=== PATIENT | female | born 1950 | race Hispanic/Latino ===

== ENCOUNTER 2022-10-13 09:40 | Emergency (ER) | payer OTHER, SELFPAY ==
--- OUTSIDE RECORDS SUMMARY | 2022-10-13 09:48 | XMS REPORT | Continuity of Care Document ---
:[address] [facility] t Address [address] [place] [address] Care Team Providers Name Role Phone Verna Jefferson Primary Care Physician Kalee Redd RN Attending Clinician Unavailable JUSTICE GRANDE Attending Clinician Unavailable JUSTICE GRANDE Attending Clinician Unavailable VERNA ARVIZU Attending Clinician Unavailable Verna Jefferson Attending Clinician DOLORES COATS Attending Clinician Unavailable Dolores Coats DO Attending Clinician PHILOMENA GUSMAN Attending Clinician Unavailable Philomena Gusman MD Attending Clinician Justice Grande MD Attending Clinician Lab, Ang - Db Attending Clinician Unavailable Naseem Branch MD Attending Clinician Jeremy De Luna MD Attending Clinician Doctor Unassigned, [place] Attending Clinician Unavailable Lazara Burks RN Attending Clinician Unavailable Only, Ang Db Test Attending Clinician Unavailable Marla Rossi MD Attending Clinician MARLA ROSSI Attending Clinician Unavailable NASEEM BRANCH Attending Clinician Unavailable Lorie Bazzi RN Attending Clinician Unavailable Lab, Adc Fam Pob I Attending Clinician Unavailable Provider, [facility] Attending Clinician Unavailable Lisset Paulino Attending Clinician LISSET QUILES Attending Clinician Unavailable 2, Adc Lab Attending Clinician Unavailable VIDHYA NEFF Attending Clinician Unavailable VIDHYA NEFF Attending Clinician Unavailable Jyoti Alegria Attending Clinician Yared Jimenez Attending Clinician PHILOMENA GUSMAN Admitting Clinician Unavailable Yared Jimenez Admitting Clinician Payers Payer Name Policy Type Policy Number Effective Date Expiration Date Jesusita LUO PLS [id number] 2021 00:00:00 HMO Problems Condition Condition Condition Status Onset Resolution Last Treating Co mments Source Name Details Category Date Date Treatment Clinician Date PATRICIA PATRICIA Disease Active 2018-09 Univers (obstructi (obstructi 2-19 it y of ve sleep ve sleep 00:00: [place] apnea) apnea) 00 Medical Branch B12 B12 Disease Active 2018-09 [facility] deficiency deficiency 1-19 it y of 00:00: [place] [facility] Cerebral Cerebral Disease Active 2018-09 Unive rs microvascu microvascu 1-12 it y of lar lar 00:00: [place] disease disease 00 Medical Branch Fatty Fatty Disease Active Univers liver liver 4-20 ity of 00:00: [place] [facility] DM2 DM2 Disease Active Univers (diabetes (diabetes 4-08 [place] of mellitus, mellitus, 00:[place] type 2[place] type 2[place] 00 [facility] Hyperchole Hyperchole Disease Active U tiners sterolemia sterolemia 4-08 it y of 00:00: [place] [facility] Abnormal Abnormal Disease Active Unive rs liver liver 4-04 ity of function function 00:00: [place] tests tests 00 Medical Branch 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 4-04 it y of 00:00: [place] 00 Medical Branch Essential Essential Disease Active Uni vers hypertensi hypertensi 2-16 it y of on on 00:00: [place] 00 Medical Branch History of History of Disease Active U nivers colon colon 2-16 ity of polyps polyps 00:00: [place] [facility] GALL GALL Diagnosis Active 2016-03-22 Mem oria STONES STONES 6-27 10:26:00 l Active 00:00: [place] 03/20/2016 00 [facility] Hypertensi Hypertens Problem Resolve 2016-03-26 Memoria ve eduardo d 02:01:24 l disorder, disorder, Herm antoni systemic systemic arterial arterial (disorder) (disorder) Resolved Problem 03/26/2016 [facility] GALLSTONE GALLSTONE Diagnosis Active 2016-03-22 Memoria ILEUS ILEUS 10:26:00 l Active Vick avendaño [facility] Alzheimer' Alzheimer' Disease [facility], Adverse Reactions, Alerts Allergy Allergy Status Severity Reaction(s) Onset Inactive Treating Comm ents Source Name Type Date Date Clinician NO KNOWN [facility] Class [facility] Social History Social Habit Start Date Stop Date Quantity Comments Source Exposure to 2022-08-06 2022-08-16 Not sure [facility]-CoV-2 00:00:00 09:22:00 [facility] (event) [place] Alcohol intake 2022-08-16 2022-08-16 Current University 00:00:00 00:00:00 non-drinker of [facility] alcohol (finding) [place] Tobacco use and 2022-05-24 2022-05-24 Smokeless tobacco Un iversity of exposure 00:00:00 00:00:00 non-user [facility] Social History 2016-03-21 2016-03-21 [facility] 05:03:51 05:03:51 Sex [birth year] At [birth year] Universit y of 00:00:00 00:00:00 [facility] Smoking Status Start Date Stop Date Source Never smoked tobacco [facility] Medications Ordered Filled Start Stop Current Ordering Indication Dosage Frequency Signature Comments Components Source Medication Medication Date Date Medication? Clinician (SIG) Name Name aspirin 81 2021-09 Yes 81mg Take 81 mg U nivers mg EC 1-23 by mouth ity of tablet 09:42: daily. [address] aspirin 81 2021-09 Yes 81mg Take 81 mg U nivers mg EC 1-23 by mouth ity of tablet 09:42: daily. [address] aspirin 81 2021-09 Yes 81mg Take 81 mg U nivers mg EC 1-23 by mouth ity of tablet 09:42: daily. [address] aspirin 81 2021-09 Yes 81mg Take 81 mg U nivers mg EC 1-23 by mouth ity of tablet 09:42: daily. [address] aspirin 81 2021-09 Yes 81mg Take 81 mg U nivers mg EC 1-23 by mouth ity of tablet 09:42: daily. [address] aspirin 81 2021-09 Yes 81mg Take 81 mg U nivers mg EC 1-23 by mouth ity of tablet 09:42: daily. [address] aspirin 81 2021-09 Yes 81mg Take 81 mg U nivers mg EC 1-23 by mouth ity of tablet 09:42: daily. [address] NaCl 0.9% 2021-09- No 1000mL at 999 Uni vers (NS) bolus 1-20 11-20 mL/hr, ity of infusion 21:30: 22:40 1,000 mL, Mariano as 1,000 mL 00 :00 IV Medical Infusion, Branch ONCE, 1 dose, On [place] 08/13/22 at 1530, RAMO ondansetron 2021-09- No 4mg 4 mg, Slow Univers (ZOFRAN -20 11-20 IV Push, ity of (PF)) 20:45: 21:03 ONCE, 1 [place] injection 4 00 :00 dose, On Medi tobias mg [facility] 08/13/22 at 1445, RAMO iopamidol 2021-09- No [id number] 72mL 72 mL, Univers (ISOVUE 1-15 11-15 Intravenou ity o f 370-500 mL) 04:30: 04:30 s, ONCE, 1 [place] injection 00 :00 dose, On Medica l 72 mL [facility] 08/07/22 at 2230, Routine NaCl 0.9% 2021-09- No 500mL at 999 Univ ers (NS) bolus 1-15 11-15 mL/hr, 500 it y of infusion 04:00: 04:47 mL, IV [place] 500 mL 00 :00 Infusion, Medical ONCE, 1 Branch dose, On [facility] 08/07/22 at 2200, STAT ondansetron 2021-09- No 4mg 4 mg, Slow Univers (ZOFRAN 1-15 11-15 IV Push, ity of (PF)) 02:45: 01:50 ONCE, 1 [place] injection 4 00 :00 dose, On Medi tobias mg Mon Branch 08/07/22 at 2045, RAMO NaCl 0.9% 2021-09- No 500mL at 999 Univ ers (NS) bolus 1-15 11-15 mL/hr, 500 it y of infusion 01:45: 03:05 mL, IV [place] 500 mL 00 :00 Infusion, Medical ONCE, 1 Branch dose, On 08/07/22 at 1945, STAT ondansetron 2021-09 Yes [id number] 4mg Take 1 Univers 4 mg 1-14 tablet by ity of disintegrat 00:00: mouth [place] ing tablet 00 every 4 Medica l (four) Branch hours as needed for Nausea and Vomiting (N/V). dicyclomine 2021-09 Yes [id number] 20mg Take 1 Univers 20 mg 1-14 tablet by ity of tablet 00:00: mouth 4 [place] 00 (four) Medical times Branch daily. ondansetron 2021-09 Yes [id number] 4mg Take 1 Univers 4 mg 1-14 tablet by ity of disintegrat 00:00: mouth [place] ing tablet 00 every 4 Medica l (four) Branch hours as needed for Nausea and Vomiting (N/V). dicyclomine 2021-09 Yes [id number] 20mg Take 1 Univers 20 mg 1-14 tablet by ity of tablet 00:00: mouth 4 [place] 00 (four) Medical times Branch daily. ondansetron 2021-09 Yes [id number] 4mg Take 1 Univers 4 mg 1-14 tablet by ity of disintegrat 00:00: mouth [place] ing tablet 00 every 4 Medica l (four) Branch hours as needed for Nausea and Vomiting (N/V). dicyclomine 2021-09 Yes [id number] 20mg Take 1 Univers 20 mg 1-14 tablet by ity of tablet 00:00: mouth 4 [place] 00 (four) Medical times Branch daily. ondansetron 2021-09 Yes [id number] 4mg Take 1 Univers 4 mg 1-14 tablet by ity of disintegrat 00:00: mouth [place] ing tablet 00 every 4 Medica l (four) Branch hours as needed for Nausea and Vomiting (N/V). dicyclomine 2021-09 Yes [id number] 20mg Take 1 Univers 20 mg 1-14 tablet by ity of tablet 00:00: mouth 4 (four) Medical times Branch daily. ondansetron 2021-09 Yes [id number] 4mg Take 1 Univers 4 mg 1-14 tablet by ity of disintegrat 00:00: mouth [place] ing tablet 00 every 4 Medica l (four) Branch hours as needed for Nausea and Vomiting (N/V). dicyclomine 2021-09 Yes [id number] 20mg Take 1 Univers 20 mg 1-14 tablet by ity of tablet 00:00: mouth 4 [place] (four) Medical times Branch daily. ondansetron 2021-09 Yes [id number] 4mg Take 1 Univers 4 mg 1-14 tablet by ity of disintegrat 00:00: mouth [place] ing tablet 00 every 4 Medica l (four) Branch hours as needed for Nausea and Vomiting (N/V). dicyclomine 2021-09 Yes [id number] 20mg Take 1 Univers 20 mg 1-14 tablet by ity of tablet 00:00: mouth (four) Medical times Branch daily. ondansetron 2021-09 Yes [id number] 4mg Take 1 Univers 4 mg 1-14 tablet by ity of disintegrat 00:00: mouth [place] ing tablet 00 every 4 Medica l (four) Branch hours as needed for Nausea and Vomiting (N/V). dicyclomine 2021-09 Yes [id number] 20mg Take 1 Univers 20 mg 1-14 tablet by ity of tablet 00:00: mouth (four) Medical times Branch daily. ondansetron 2021-09 Yes [id number] 4mg Take 1 Univers 4 mg 1-14 tablet by ity of disintegrat 00:00: mouth [place] ing tablet 00 every 4 Medica l (four) Branch hours as needed for Nausea and Vomiting (N/V). dicyclomine 2021-09 Yes [id number] 20mg Take 1 Univers 20 mg 1-14 tablet by ity of tablet 00:00: mouth 4 (four) Medical times Branch daily. ondansetron 2021-09 Yes [id number] 4mg Take 1 Univers 4 mg 1-14 tablet by ity of disintegrat 00:00: mouth [place] ing tablet 00 every 4 Medica l (four) Branch hours as needed for Nausea and Vomiting (N/V). dicyclomine 2021-1 Yes [id number] 20mg Take 1 Univers 20 mg 1-14 tablet by ity of tablet 00:00: mouth 4 [place] [address] (four) Medical times [place] daily. galantamine 2021-0 Yes [id number] 8mg Take 1 Univers 8 mg tablet 9-14 tablet by ity of 00:00: mouth in [place] [address] the Medical morning Branch and 1 tablet in the evening. galantamine 2021-0 Yes [id number] 8mg Take 1 Univers 8 mg tablet 9-14 tablet by ity of 00:00: mouth in [place] [address] the Medical morning Branch and 1 tablet in the evening. galantamine 2021-0 Yes [id number] 8mg Take 1 Univers 8 mg tablet 9-14 tablet by ity of 00:00: mouth in [place] [address] the Medical morning Branch and 1 tablet in the evening. galantamine 2021-0 Yes [id number] 8mg Take 1 Univers 8 mg tablet 9-14 tablet by ity of 00:00: mouth in [place] [address] the Medical morning Branch and 1 tablet in the evening. galantamine 2021-0 Yes [id number] 8mg Take 1 Univers 8 mg tablet 9-14 tablet by ity of 00:00: mouth in [place] [address] the Medical morning [place] and 1 tablet in the evening. galantamine 2021-0 Yes [id number] 8mg Take 1 Univers 8 mg tablet 9-14 tablet by ity of 00:00: mouth in [place] [address] the [facility] morning Branch and 1 tablet in the evening. galantamine 2021-0 Yes [id number] 8mg Take 1 Univers 8 mg tablet 9-14 tablet by ity of 00:00: mouth in [place] [address] the Medical morning Branch and 1 tablet in the evening. galantamine 2-0 Yes [id number] 8mg Take 1 Univers 8 mg tablet 9-14 tablet by ity of 00:00: mouth in [place] [address] the [facility] morning Branch and 1 tablet in the evening. galantamine 2-0 Yes [id number] 8mg Take 1 Univers 8 mg tablet 9-14 tablet by ity of 00:00: mouth in [place] [address] the Medical morning Branch and 1 tablet in the evening. galantamine 2-0 Yes [id number] 8mg Take 1 Univers 8 mg tablet 9-14 tablet by ity of 00:00: mouth in [place] 00 the Medical morning Branch and 1 tablet in the evening. loratadine 2022-0 Yes [id number] 10mg Take 1 Univers 10 mg 8-31 tablet by ity of tablet 00:00: mouth in [place] 00 the Medical morning. Branch triamcinolo 2-0 Yes [id number] Apply to [facility] 8-31 area(s) 2 ity of acetonide 00:00: (two) [place] 0.1 % cream 00 times Medical daily. Branch loratadine 2-0 Yes [id number] 10mg Take 1 Univers 10 mg 8-31 tablet by ity of tablet 00:00: mouth in [place] 00 the Medical morning. Branch triamcinolo 2-0 Yes [id number] Apply to [facility] 8-31 area(s) 2 ity of acetonide 00:00: (two) [place] 0.1 % cream 00 times Medical daily. Branch loratadine 2-0 Yes [id number] 10mg Take 1 Univers 10 mg 8-31 tablet by ity of tablet 00:00: mouth in [place] 00 the Medical morning. Branch triamcinolo 2-0 Yes [id number] Apply to [facility] 8-31 area(s) 2 ity of acetonide 00:00: (two) [place] 0.1 % cream 00 times Medical daily. Branch loratadine 2-0 Yes [id number] 10mg Take 1 Univers 10 mg 8-31 tablet by ity of tablet 00:00: mouth in [place] 00 the Medical morning. Branch triamcinolo 2-0 Yes [id number] Apply to [facility] 8-31 area(s) 2 ity of acetonide 00:00: (two) [place] 0.1 % cream 00 times Medical daily. Branch loratadine 2-0 Yes [id number] 10mg Take 1 Univers 10 mg 8-31 tablet by ity of tablet 00:00: mouth in [place] 00 the Medical morning. Branch triamcinolo 2022-0 Yes [id number] Apply to [facility] 8-31 area(s) 2 ity of acetonide 00:00: (two) [place] 0.1 % cream 00 times Medical daily. Branch loratadine 2022-0 Yes [id number] 10mg Take 1 Univers 10 mg 8-31 tablet by ity of tablet 00:00: mouth in [place] 00 the Medical morning. Branch triamcinolo 2-0 Yes [id number] Apply to Univers ne 8-31 area(s) 2 ity of acetonide 00:00: (two) [place] 0.1 % cream 00 times Medical daily. Branch loratadine 2-0 Yes [id number] 10mg Take 1 Univers 10 mg 8-31 tablet by ity of tablet 00:00: mouth in [place] 00 the Medical morning. Branch triamcinolo 2-0 Yes [id number] Apply to Univers ne 8-31 area(s) 2 ity of acetonide 00:00: (two) [place] 0.1 % cream 00 times Medical daily. Branch loratadine 2-0 Yes [id number] 10mg Take 1 Univers 10 mg 8-31 tablet by ity of tablet 00:00: mouth in [place] 00 the Medical morning. Branch triamcinolo 2-0 Yes [id number] Apply to Univers ne 8-31 area(s) 2 ity of acetonide 00:00: (two) [place] 0.1 % cream 00 times Medical daily. Branch loratadine 2-0 Yes [id number] 10mg Take 1 Univers 10 mg 8-31 tablet by ity of tablet 00:00: mouth in [place] 00 the Medical morning. Branch triamcinolo 2-0 Yes [id number] Apply to Univers ne 8-31 area(s) 2 ity of acetonide 00:00: (two) [place] 0.1 % cream 00 times Medical daily. Branch loratadine 2-0 Yes [id number] 10mg Take 1 Univers 10 mg 8-31 tablet by ity of tablet 00:00: mouth in [place] 00 the Medical morning. Branch triamcinolo 2-0 Yes [id number] Apply to Univers ne 8-31 area(s) 2 ity of acetonide 00:00: (two) [place] 0.1 % cream 00 times Medical daily. Branch loratadine 2022-0 Yes [id number] 10mg Take 1 Univers 10 mg 8-31 tablet by ity of tablet 00:00: mouth in [place] 00 the Medical morning. Branch triamcinolo 2022-0 Yes [id number] Apply to Univers ne 8-31 area(s) 2 ity of acetonide 00:00: (two) [place] 0.1 % cream 00 times Medical daily. Branch loratadine Yes [id number] 10mg Take 1 Univers 10 mg 8-31 tablet by ity of tablet 00:00: mouth in [place] 00 the Medical morning. Branch triamcinolo Yes [id number] Apply to Univers ne 8-31 area(s) 2 ity of acetonide 00:00: (two) [place] 0.1 % cream 00 times Medical daily. Branch galantamine Yes [id number] 4mg Take 1 Univers 4 mg tablet 7-15 tablet by ity of 00:00: mouth in [place] 00 the Medical morning Branch and 1 tablet in the evening. When script completes, call office for a new script. galantamine Yes [id number] 4mg Take 1 Univers 4 mg tablet 7-15 tablet by ity of 00:00: mouth in [place] 00 the Medical morning Branch and 1 tablet in the evening. When script completes, call office for a new script. galantamine 2021- No [id number] 4mg Take 1 Univers 4 mg tablet 7-15 09-14 tablet by it y of 00:00: 00:00 mouth in [place] 00 :00 the Medical morning Branch and 1 tablet in the evening. When script completes, call office for a new script. enalapriL-h Yes [id number] 1{tbl} Take 1 Univers ydrochlorot 7-08 tablet by ity of hiazide 00:00: mouth [place] 5-12.5 mg 00 daily. Medical per tablet Branch metformin Yes [id number] 500mg Take 1 Univers ER 500 mg 7-08 tablet by ity o f 24 hr 00:00: mouth 2 [place] tablet 00 (two) Medical times Branch daily with meals. enalapriL-h Yes [id number] 1{tbl} Take 1 Univers ydrochlorot 7-08 tablet by ity of hiazide 00:00: mouth [place] 5-12.5 mg 00 daily. Medical per tablet Branch metformin Yes [id number] 500mg Take 1 Univers ER 500 mg 7-08 tablet by ity o f 24 hr 00:00: mouth 2 [place] tablet 00 (two) Medical times Branch daily with meals. enalapriL-h Yes [id number] 1{tbl} Take 1 Univers ydrochlorot 7-08 tablet by ity of hiazide 00:00: mouth [place] 5-12.5 mg 00 daily. Medical per tablet Branch metformin Yes [id number] 500mg Take 1 Univers ER 500 mg 7-08 tablet by ity o f 24 hr 00:00: mouth 2 [place] tablet 00 (two) Medical times Branch daily with meals. enalapriL-h Yes [id number] 1{tbl} Take 1 Univers ydrochlorot 7-08 tablet by ity of hiazide 00:00: mouth [place] 5-12.5 mg 00 daily. Medical per tablet Branch metformin Yes [id number] 500mg Take 1 Univers ER 500 mg 7-08 tablet by ity o f 24 hr 00:00: mouth 2 [place] tablet 00 (two) Medical times Branch daily with meals. enalapriL-h Yes [id number] 1{tbl} Take 1 Univers ydrochlorot 7-08 tablet by ity of hiazide 00:00: mouth [place] 5-12.5 mg 00 daily. Medical per tablet Branch metformin Yes [id number] 500mg Take 1 Univers ER 500 mg 7-08 tablet by ity o f 24 hr 00:00: mouth 2 [place] tablet 00 (two) Medical times Branch daily with meals. enalapriL-h Yes [id number] 1{tbl} Take 1 Univers ydrochlorot 7-08 tablet by ity of hiazide 00:00: mouth [place] 5-12.5 mg 00 daily. Medical per tablet Branch metformin Yes [id number] 500mg Take 1 Univers ER 500 mg 7-08 tablet by ity o f 24 hr 00:00: mouth 2 [place] tablet 00 (two) Medical times Branch daily with meals. enalapriL-h Yes [id number] 1{tbl} Take 1 Univers ydrochlorot 7-08 tablet by ity of hiazide 00:00: mouth [place] 5-12.5 mg 00 daily. Medical per tablet Branch metformin Yes [id number] 500mg Take 1 Univers ER 500 mg 7-08 tablet by ity o f 24 hr 00:00: mouth 2 [place] tablet 00 (two) Medical times Branch daily with meals. enalapriL-h Yes [id number] 1{tbl} Take 1 Univers ydrochlorot 7-08 tablet by ity of hiazide 00:00: mouth [place] 5-12.5 mg 00 daily. Medical per tablet Branch metformin Yes [id number] 500mg Take 1 Univers ER 500 mg 7-08 tablet by ity o f 24 hr 00:00: mouth 2 [place] tablet 00 (two) Medical times Branch daily with meals. enalapriL-h Yes [id number] 1{tbl} Take 1 Univers ydrochlorot 7-08 tablet by ity of hiazide 00:00: mouth [place] 5-12.5 mg 00 daily. Medical per tablet Branch metformin Yes [id number] 500mg Take 1 Univers ER 500 mg 7-08 tablet by ity o f 24 hr 00:00: mouth 2 [place] tablet 00 (two) Medical times Branch daily with meals. enalapriL-h Yes [id number] 1{tbl} Take 1 Univers ydrochlorot 7-08 tablet by ity of hiazide 00:00: mouth [place] 5-12.5 mg 00 daily. Medical per tablet Branch metformin Yes [id number] 500mg Take 1 Univers ER 500 mg 7-08 tablet by ity o f 24 hr 00:00: mouth 2 [place] tablet 00 (two) Medical times Branch daily with meals. enalapriL-h Yes [id number] 1{tbl} Take 1 Univers ydrochlorot 7-08 tablet by ity of hiazide 00:00: mouth [place] 5-12.5 mg 00 daily. Medical per tablet Branch metformin Yes [id number] 500mg Take 1 Univers ER 500 mg 7-08 tablet by ity o f 24 hr 00:00: mouth 2 [place] tablet 00 (two) Medical times Branch daily with meals. enalapriL-h Yes [id number] 1{tbl} Take 1 Univers ydrochlorot 7-08 tablet by ity of hiazide 00:00: mouth [place] 5-12.5 mg 00 daily. Medical per tablet Branch metformin Yes [id number] 500mg Take 1 Univers ER 500 mg 7-08 tablet by ity o f 24 hr 00:00: mouth 2 [place] tablet 00 (two) Medical times [place] daily with meals. ATORVASTA Yes [id number] TAKE ONE Univers N 20 mg 7-07 TABLET BY ity of tablet 00:00: MOUTH AT [place] [facility] [id number] TAKE ONE Univers N 20 mg 7-07 TABLET BY ity of tablet 00:00: MOUTH AT [place] [facility] Yes [id number] TAKE ONE Univers N 20 mg 7-07 TABLET BY ity of tablet 00:00: MOUTH AT [place] [facility] [id number] TAKE ONE Univers N 20 mg 7-07 TABLET BY ity of tablet 00:00: MOUTH AT [place] [facility] Yes [id number] TAKE ONE Univers N 20 mg 7-07 TABLET BY ity of tablet 00:00: MOUTH AT [place] [facility] Yes [id number] TAKE ONE Univers N 20 mg 7-07 TABLET BY ity of tablet 00:00: MOUTH AT [place] [facility] Yes [id number] TAKE ONE Univers N 20 mg 7-07 TABLET BY ity of tablet 00:00: MOUTH AT [place] [facility] Yes [id number] TAKE ONE Univers N 20 mg 7-07 TABLET BY ity of tablet 00:00: MOUTH AT [place] [facility] Yes [id number] TAKE ONE Univers N 20 mg 7-07 TABLET BY ity of tablet 00:00: MOUTH AT [place] [facility] Yes [id number] TAKE ONE Univers N 20 mg 7-07 TABLET BY ity of tablet 00:00: MOUTH AT [place] [facility] Yes [id number] TAKE ONE Univers N 20 mg 7-07 TABLET BY ity of tablet 00:00: MOUTH AT [address] [facility] Yes [id number] TAKE ONE Univers N 20 mg 7-07 TABLET BY ity of tablet 00:00: MOUTH AT [address] aspirin 81 2020-0 Yes 81mg Take 81 mg U nivers mg EC 7-28 by mouth ity of tablet 08:53: daily. [address] aspirin 81 2020-0 Yes 81mg Take 81 mg U nivers mg EC 7-28 by mouth ity of tablet 08:53: daily. [address] aspirin 81 2020-0 Yes 81mg Take 81 mg U nivers mg EC 7-28 by mouth ity of tablet 08:53: daily. [address] aspirin 81 2020-0 Yes 81mg Take 81 mg U nivers mg EC 7-28 by mouth ity of tablet 08:53: daily. [address] aspirin 81 2020-0 Yes 81mg Take 81 mg U nivers mg EC 7-28 by mouth ity of tablet 08:53: daily. [address] vitamin 2019- Yes [id number] 1000ug Take 1 U nivers B-12 1,000 1-18 tablet by ity of mcg tablet 00:00: mouth [place] 00 daily. [facility] vitamin 2019- Yes [id number] 1000ug Take 1 U nivers B-12 1,000 1-18 tablet by ity of mcg tablet 00:00: mouth [place] 00 daily. [facility] vitamin 2019- Yes [id number] 1000ug Take 1 U nivers B-12 1,000 1-18 tablet by ity of mcg tablet 00:00: mouth [place] 00 daily. [facility] vitamin 2019- Yes [id number] 1000ug Take 1 U nivers B-12 1,000 1-18 tablet by ity of mcg tablet 00:00: mouth [place] 00 daily. [facility] vitamin 2019- Yes [id number] 1000ug Take 1 U nivers B-12 1,000 1-18 tablet by ity of mcg tablet 00:00: mouth [place] 00 daily. [facility] vitamin 2019- Yes [id number] 1000ug Take 1 U nivers B-12 1,000 1-18 tablet by ity of mcg tablet 00:00: mouth [place] 00 daily. [facility] vitamin 2019- Yes [id number] 1000ug Take 1 U nivers B-12 1,000 1-18 tablet by ity of mcg tablet 00:00: mouth [place] 00 daily. [facility] vitamin 2019- Yes [id number] 1000ug Take 1 U nivers B-12 1,000 1-18 tablet by ity of mcg tablet 00:00: mouth [place] 00 daily. Medical Branch vitamin 2019-1 Yes [id number] 1000ug Take 1 U nivers B-12 1,000 1-18 tablet by ity of mcg tablet 00:00: mouth [place] 00 daily. Medical Branch vitamin 2019-1 Yes [id number] 1000ug Take 1 U nivers B-12 1,000 1-18 tablet by ity of mcg tablet 00:00: mouth [place] 00 daily. Medical Branch vitamin 2019-1 Yes [id number] 1000ug Take 1 U nivers B-12 1,000 1-18 tablet by ity of mcg tablet 00:00: mouth [place] 00 daily. Medical Branch vitamin 2019-1 Yes [id number] 1000ug Take 1 U nivers B-12 1,000 1-18 tablet by ity of mcg tablet 00:00: mouth [place] 00 daily. Medical Branch PROLIA 60 2019-0 Yes INJECT 1ML Un juliana mg/mL 2-05 60MG DOSE ity of injection 00:00: [place] USLY EVERY Medical 6 MONTHS Branch PROLIA 60 2019-0 Yes INJECT 1ML Un [place] mg/mL 2-05 60MG DOSE ity of injection 00:00: [place] USLY EVERY Medical 6 MONTHS Branch PROLIA 60 2019-0 Yes INJECT 1ML Un [place] mg/mL 2-05 60MG DOSE ity [place] injection 00:[place] USLY EVERY [facility] 6 MONTHS Branch PROLIA 60 2019-0 Yes INJECT 1ML Un juliana mg/mL 2-05 60MG DOSE ity of injection 00:[place] US[facility] EVERY [facility] 6 MONTHS [facility] PROLIA 60 2019-0 Yes INJECT 1ML Un juliana mg/mL 2-05 60MG DOSE ity of injection 00:[place]: [place] USLY EVERY [facility] 6 MONTHS Branch PROLIA 60 2019-0 Yes INJECT 1ML Un juliana mg/mL 2-05 60MG DOSE ity of injection 00:[place]: [place] USLY EVERY [facility] 6 MONTHS [facility] PROLIA 60 2019-0 Yes INJECT 1ML Un juliana mg/mL 2-05 60MG DOSE ity of injection 00:[place]: [place] USLY EVERY [facility] 6 MONTHS Branch PROLIA 60 Yes INJECT 1ML Un juliana mg/mL 2-05 60MG DOSE ity of injection 00:[place]: [place] USLY EVERY [facility] 6 MONTHS [facility] PROLIA 60 Yes INJECT 1ML Un juliana mg/mL 2-05 60MG DOSE ity of injection 00:[place]: [place] US[facility] EVERY [facility] 6 MONTHS Branch PROLIA 60 Yes INJECT 1ML Un juliana mg/mL 2-05 60MG DOSE ity of injection 00:[place]: [place] USLY EVERY [facility] 6 MONTHS Branch PROLIA 60 Yes INJECT 1ML Un juliana mg/mL 2-05 60MG DOSE ity of injection 00:[place]: [place] USLY EVERY [facility] 6 MONTHS Branch PROLIA 60 Yes INJECT 1ML Un juliana mg/mL 2-05 60MG DOSE ity of injection 00:[place]: [place] US[facility] EVERY [facility] 6 MONTHS Branch Vasotec No Notes: Memoria 03-24 (Same as: l 14:00: Vasotec) [place] 00 multivitami No Notes: Stefan catrachito n 03-24 (Same l 14:00: as:Thera) WASTE: F/P - Black; E - Municipal Trash Bin Take with food. Enalapril No 1 tab, Memori a Maleate 5 03-24 Route: PO, l MG / 14:00: Drug Form: [place] Hydrochloro 00 TAB, thiazide Dosing 12.5 MG Weight 70, Oral Tablet kg, Daily, Start date: 03/24/16 9:00:00 CDT, Duration: 30 day, Stop date: 04/22/16 9:00:00 CDT Microzide No Notes: Memori a 03-24 (Same as: l 14:00: Microzide) [place] 00 With food. Vasotec No Notes: Memoria 03-24 (Same as: l 14:00: Vasotec) [place] 00 multivitami No Notes: Stefan catrachito n 03-24 (Same l 14:00: as:Thera) [place] 00 WASTE: F/P - Black; E - Municipal Trash Bin Take with food. Enalapril No 1 tab, Memori a Maleate 5 03-24 Route: PO, l MG / 14:00: Drug Form: [place] Hydrochloro 00 TAB, thiazide Dosing 12.5 MG Weight 70, Oral Tablet kg, Daily, Start date: 03/24/16 9:00:00 CDT, Duration: 30 day, Stop date: 04/22/16 9:00:00 CDT Microzide No Notes: Memori a 03-24 (Same as: l 14:00: Microzide) [place] 00 With food. Vasotec No Notes: Memoria 03-24 (Same as: l 14:00: Vasotec) [place] 00 multivitami No Notes: Stefan catrachito n 03-24 (Same l 14:00: as:Thera) WASTE: F/P - Black; E - Municipal Trash Bin Take with food. Enalapril No 1 tab, Memori a Maleate 03-24 Route: PO, l MG / 14:00: Drug Form: [place] Hydrochloro 00 TAB, thiazide Dosing 12.5 MG Weight 70, Oral Tablet kg, Daily, Start date: 03/24/16 9:00:00 CDT, Duration: 30 day, Stop date: 04/22/16 9:00:00 CDT Microzide No Notes: Memori a 03-24 (Same as: l 14:00: Microzide) With food. Vasotec No Notes: Memoria 03-24 (Same as: l 14:00: Vasotec) [place] multivitami No Notes: Stefan catrachito n 7 (Same l 14:00: as:Thera) [place] 00 WASTE: F/P - Black; E - Municipal Trash Bin Take with food. Enalapril No 1 tab, Memori a Maleate 5 03-24 Route: PO, l MG / 14:00: Drug Form: [place] Hydrochloro 00 TAB, thiazide Dosing 12.5 MG Weight 70, Oral Tablet kg, Daily, Start date: 03/24/16 9:00:00 CDT, Duration: 30 day, Stop date: 04/22/16 9:00:00 CDT Microzide No Notes: Memori a 03-24 (Same as: l 14:00: Microzide) With food. Microzide No Notes: Memori a 03-24 (Same as: l 14:00: Microzide) With food. Vasotec No Notes: Memoria 03-24 (Same as: l 14:00: Vasotec) multivitami No Notes: Stefan catrachito n 03-24 (Same l 14:00: as:Thera) WASTE: F/P - Black; E - Municipal Trash Bin Take with food. Enalapril No 1 tab, Memori a Maleate 5 03-24 Route: PO, l MG / 14:00: Drug Form: [place] Hydrochloro 00 TAB, thiazide Dosing 12.5 MG Weight 70, Oral Tablet kg, Daily, Start date: 03/24/16 9:00:00 CDT, Duration: 30 day, Stop date: 04/22/16 9:00:00 CDT docusate Yes 100 mg = 1 Mem oria sodium 100 6-30 cap, PO, l mg oral 20:48: BID, # 60 [place] nn capsule 25 cap, 0 Refill(s), Pharmacy: [facility] [address] [place] [address] Yes 100 mg = 1 Mem oria sodium 100 6-30 cap, PO, l mg oral 20:48: BID, # 60 [place]aine nn capsule 25 cap, 0 Refill(s), Pharmacy: [facility] [address] [place] [address] Yes 100 mg = 1 Mem oria sodium 100 6-30 cap, PO, l mg oral 20:48: BID, # 60 [place] nn capsule 25 cap, 0 Refill(s), Pharmacy: [facility] docusa Yes 100 mg = 1 Mem oria sodium 100 6-30 cap, PO, l mg oral 20:48: BID, # 60 [place] nn capsule 25 cap, 0 Refill(s), Pharmacy: [facility] docusa Yes 100 mg = 1 Mem oria sodium 100 6-30 cap, PO, l mg oral 20:48: BID, # 60 [place]aine nn capsule 25 cap, 0 Refill(s), Pharmacy: [facility] [id number] Acetaminoph Yes 1 - 2 tab, Memoria en 300 MG / 6-30 PO, Q4H, l Codeine 20:48: PRN Pain, [place] nn Phosphate 17 X 3 day, # 30 MG Oral 20 tab, 0 Tablet Refill(s) [Tylenol with Codeine #3] Acetaminoph Yes 1 - 2 tab, Memoria en 300 MG / 6-30 PO, Q4H, l Codeine 20:48: PRN Pain, [place] nn Phosphate 17 X 3 day, # 30 MG Oral 20 tab, 0 Tablet Refill(s) [Tylenol with Codeine #3] Acetaminoph Yes 1 - 2 tab, Memoria en 300 MG / 6-30 PO, Q4H, l Codeine 20:48: PRN Pain, [place] nn Phosphate 17 X 3 day, # 30 MG Oral 20 tab, 0 Tablet Refill(s) [Tylenol with Codeine #3] Acetaminoph Yes 1 - 2 tab, Memoria en 300 MG / 6-30 PO, Q4H, l Codeine 20:48: PRN Pain, [place] nn Phosphate 17 X 3 day, # 30 MG Oral 20 tab, 0 Tablet Refill(s) [Tylenol with Codeine #3] Acetaminoph Yes 1 - 2 tab, Memoria en 300 MG / 6-30 PO, Q4H, l Codeine 20:48: PRN Pain, [place] nn Phosphate 17 X 3 day, # 30 MG Oral 20 tab, 0 Tablet Refill(s) [Tylenol with Codeine #3] Acetaminoph No 1 - 2 tab, Memoria en 300 MG / 6-30 PO, Q4H, l Codeine 20:25: PRN Pain, [place] nn Phosphate 00 X 3 day, # 30 MG Oral 20 tab, 0 Tablet Refill(s) [Tylenol with Codeine #3] docusate No 100 mg = 1 Mem oria sodium 100 6-30 cap, PO, l mg oral 20:25: BID, # 60 [place]aine nn capsule 00 cap, 0 Refill(s), Pharmacy: [facility] [address] [place] [address] No 1 - 2 tab, Memoria en 300 MG / 6-30 PO, Q4H, l Codeine 20:25: PRN Pain, [place] nn Phosphate 00 X 3 day, # 30 MG Oral 20 tab, 0 Tablet Refill(s) [Tylenol with Codeine #3] docusate No 100 mg = 1 Mem oria sodium 100 6-30 cap, PO, l mg oral 20:25: BID, # 60 Loraien nn capsule 00 cap, 0 Refill(s), Pharmacy: [facility] [address] [place] [address] No 1 - 2 tab, Memoria en 300 MG / 6-30 PO, Q4H, l Codeine 20:25: PRN Pain, [place] nn Phosphate 00 X 3 day, # 30 MG Oral 20 tab, 0 Tablet Refill(s) [Tylenol with Codeine #3] docusate No 100 mg = 1 Mem oria sodium 100 6-30 cap, PO, l mg oral 20:25: BID, # 60 [place]aine nn capsule 00 cap, 0 Refill(s), Pharmacy: [facility] [address] [place] [address] No 1 - 2 tab, Memoria en 300 MG / 6-30 PO, Q4H, l Codeine 20:25: PRN Pain, [place] nn Phosphate 00 X 3 day, # 30 MG Oral 20 tab, 0 Tablet Refill(s) [Tylenol with Codeine #3] docusate No 100 mg = 1 Mem oria sodium 100 6-30 cap, PO, l mg oral 20:25: BID, # 60 [place]aine nn capsule 00 cap, 0 Refill(s), Pharmacy: [facility] [address] [place] [address] No 1 - 2 tab, Memoria en 300 MG / 6-30 PO, Q4H, l Codeine 20:25: PRN Pain, [place] nn Phosphate 00 X 3 day, # 30 MG Oral 20 tab, 0 Tablet Refill(s) [Tylenol with Codeine #3] docusate No 100 mg = 1 Mem oria sodium 100 6-30 cap, PO, l mg oral 20:25: BID, # 60 Loraine nn capsule 00 cap, 0 Refill(s), Pharmacy: [facility] [id number] acetaminoph No 1,000 mg = Memoria en 500 mg 6-30 2 tab, PO, l oral tablet 19:44: Q6H, 0 Herm antoni 00 Refill(s) Enalapril No 1 tab, PO, Me moria Maleate 5 6-30 Daily, 0 l MG / 19:44: Refill(s) [place] Hydrochloro 00 thiazide 12.5 MG Oral Tablet acetaminoph No 1,000 mg = Memoria en 500 mg 6-30 2 tab, PO, l oral tablet 19:44: Q6H, 0 Herm antoni 00 Refill(s) Enalapril No 1 tab, PO, Me moria Maleate 5 6-30 Daily, 0 l MG / 19:44: Refill(s) [place] Hydrochloro 00 thiazide 12.5 MG Oral Tablet acetaminoph No 1,000 mg = Memoria en 500 mg 6-30 2 tab, PO, l oral tablet 19:44: Q6H, 0 Herm antoni 00 Refill(s) Enalapril No 1 tab, PO, Me moria Maleate 5 6-30 Daily, 0 l MG / 19:44: Refill(s) [place] Hydrochloro 00 thiazide 12.5 MG Oral Tablet acetaminoph No 1,000 mg = Memoria en 500 mg 6-30 2 tab, PO, l oral tablet 19:44: Q6H, 0 Herm atnoni 00 Refill(s) Enalapril No 1 tab, PO, Me moria Maleate 5 6-30 Daily, 0 l MG / 19:44: Refill(s) [place] Hydrochloro 00 thiazide 12.5 MG Oral Tablet acetaminoph No 1,000 mg = Memoria en 500 mg 6-30 2 tab, PO, l oral tablet 19:44: Q6H, 0 Herm antoni 00 Refill(s) Enalapril No 1 tab, PO, Me moria Maleate 5 6-30 Daily, 0 l MG / 19:44: Refill(s) [place] Hydrochloro 00 thiazide 12.5 MG Oral Tablet Dulcolax No Notes: Memoria Laxative 6-30 (Same As: l 16:30: Dulcolax, [place] 00 Bisco-Lax) Dulcolax No Notes: [facility] Laxative 6-30 (Same As: l 16:30: Dulcolax, [place] 00 Bisco-Lax) Dulcolax No Notes: [facility] Laxative 6-30 (Same As: l 16:30: Dulcolax, [place] 00 Bisco-Lax) Dulcolax No Notes: Memoria Laxative 6-30 (Same As: l 16:30: Dulcolax, [place] 00 Bisco-Lax) Dulcolax No Notes: Memoria Laxative 6-30 (Same As: l 16:30: Dulcolax, [place] 00 Bisco-Lax) Tramadol No Notes: Not Mem oria 6-30 to exceed l 05:00: 400mg/day. [place] 00 (Same As: Ultram) Acetaminoph No Notes: Max Memoria en 6-30 acetaminop l 05:00: hen 4000 [place] 00 mg/day (4 gm/day). (Same as: Tylenol Extra Strength) Tramadol No Notes: Not Mem oria 6-30 to exceed l 05:00: 400mg/day. [place] 00 (Same As: Ultram) Acetaminoph No Notes: Max Memoria en 6-30 acetaminop l 05:00: hen 4000 [place] 00 mg/day (4 gm/day). (Same as: Tylenol Extra Strength) Tramadol No Notes: Not Mem oria 6-30 to exceed l 05:00: 400mg/day. [place] 00 (Same As: Ultram) Acetaminoph No Notes: Max Memoria en 6-30 acetaminop l 05:00: hen 4000 [place] 00 mg/day (4 gm/day). (Same as: Tylenol Extra Strength) Tramadol No Notes: Not Mem oria 6-30 to exceed l 05:00: 400mg/day. [place] 00 (Same As: Ultram) Acetaminoph No Notes: Max Memoria en 6-30 acetaminop l 05:00: hen 4000 [place] 00 mg/day (4 gm/day). (Same as: Tylenol Extra Strength) Tramadol No Notes: Not Mem oria 6-30 to exceed l 05:00: 400mg/day. [place] 00 (Same As: Ultram) Acetaminoph No Notes: Max Memoria en 6-30 acetaminop l 05:00: hen 4000 [place] 00 mg/day (4 gm/day). (Same as: Tylenol Extra Strength) heparin No Notes: Memoria 6-28 porcine l 21:00: heparin [place] 00 heparin No Notes: Memoria 6-28 porcine l 21:00: heparin [place] heparin No Notes: Memoria 6-28 porcine l 21:00: heparin [place] 00 heparin No Notes: Memoria 628 porcine l 21:00: heparin heparin No Notes: Memoria 6-28 porcine l 21:00: heparin Labetalol No 10 mg, 2 Stefan catrachito - mL, Route: l 17:49: IVP, Drug form: INJ, Q5Min, Dosing Weight 70, kg, PRN Elevated BP, Start date: 03/21/16 12:49:00 CDT, Duration: 5 doses or times, Stop date: 03/22/16 0:00:00 CDT Flumazenil No Notes: Memor ia - (Same as: l 17:49: Romazicon) Naloxone No Notes: Memoria -28 Same as l 17:49: Narcan Oxycodone No Notes: Memori a -28 (Same as: l 17:49: Roxicodone ) Hydromorpho No Notes: Stefan catrachito ne 03-21 Same as: l 17:49: Dilaudid Ondansetron No Notes: Stefan catrachito -28 (Same as: l 17:49: Zofran) MEDICATION WASTE Product Size: 4 mg Product Wasted: ___ mg Hydralazine No Notes: Stefan catrachito 6-28 (Same as: l 17:49: Apresoline ) Push over 5 minutes Labetalol No 10 mg, 2 Stefan catrachito 6-28 mL, Route: l 17:49: IVP, Drug form: INJ, Q5Min, Dosing Weight 70, kg, PRN Elevated BP, Start date: 03/21/16 12:49:00 CDT, Duration: 5 doses or times, Stop date: 03/22/16 0:00:00 CDT Flumazenil No Notes: Memor ia 6-28 (Same as: l 17:49: Romazicon) Naloxone No Notes: Memoria 6-28 Same as l 17:49: Narcan Oxycodone No Notes: Memori a 6-28 (Same as: l 17:49: Roxicodone ) Hydromorpho No Notes: Stefan catrachito ne 6-28 Same as: l 17:49: Dilaudid Ondansetron No Notes: Stefan catrachito 6-28 (Same as: l 17:49: Zofran) MEDICATION WASTE Product Size: 4 mg Product Wasted: ___ mg Hydralazine No Notes: Stefan catrachito 6-28 (Same as: l 17:49: Apresoline ) Push over 5 minutes Labetalol No 10 mg, 2 Stefan catrachito 6-28 mL, Route: l 17:49: IVP, Drug form: INJ, Q5Min, Dosing Weight 70, kg, PRN Elevated BP, Start date: 03/21/16 12:49:00 CDT, Duration: 5 doses or times, Stop date: 03/22/16 0:00:00 CDT Flumazenil No Notes: Memor ia 6-28 (Same as: l 17:49: Romazicon) Naloxone No Notes: Memoria 6-28 Same as l 17:49: Narcan Oxycodone No Notes: Memori a 6-28 (Same as: l 17:49: Roxicodone ) Hydromorpho No Notes: Stefan catrachito ne 6-28 Same as: l 17:49: Dilaudid [place] 00 Ondansetron No Notes: Stefan catrachito 6-28 (Same as: l 17:49: Zofran) [place] 00 MEDICATION WASTE Product Size: 4 mg Product Wasted: ___ mg Hydralazine No Notes: Stefan catrachito 6-28 (Same as: l 17:49: Apresoline ) Push over 5 minutes Labetalol No 10 mg, 2 Stefan catrachito 6-28 mL, Route: l 17:49: IVP, Drug [place] 00 form: INJ, Q5Min, Dosing Weight 70, kg, PRN Elevated BP, Start date: 03/21/16 12:49:00 CDT, Duration: 5 doses or times, Stop date: 03/22/16 0:00:00 CDT Flumazenil No Notes: Memor ia - (Same as: l 17:49: Romazicon) Naloxone No Notes: Memoria 6-28 Same as l 17:49: Narcan Oxycodone No Notes: Memori a - (Same as: l 17:49: Roxicodone ) Hydromorpho No Notes: Stefan catrachito ne 6-28 Same as: l 17:49: Dilaudid Ondansetron No Notes: Stefan catrachito 6-28 (Same as: l 17:49: Zofran) [place] 00 MEDICATION WASTE Product Size: 4 mg Product Wasted: ___ mg Hydralazine No Notes: Stefan catrachito 6-28 (Same as: l 17:49: Apresoline [place] 00 ) Push over 5 minutes Labetalol No 10 mg, 2 Stefan catrachito 6-28 mL, Route: l 17:49: IVP, Drug [place] 00 form: INJ, Q5Min, Dosing Weight 70, kg, PRN Elevated BP, Start date: 03/21/16 12:49:00 CDT, Duration: 5 doses or times, Stop date: 03/22/16 0:00:00 CDT Flumazenil No Notes: Memor ia 03-21 (Same as: l 17:49: Romazicon) Naloxone No Notes: Memoria 03-21 Same as l 17:49: Narcan Oxycodone No Notes: Memori a 03-21 (Same as: l 17:49: Roxicodone ) Hydromorpho No Notes: Stefan catrachito ne 03-21 Same as: l 17:49: Dilaudid Ondansetron No Notes: Stefan catrachito 03-21 (Same as: l 17:49: Zofran) MEDICATION WASTE Product Size: 4 mg Product Wasted: ___ mg Hydralazine No Notes: Stefan catrachito 03-21 (Same as: l 17:49: Apresoline ) Push over 5 minutes Ancef No 2 gm, Memoria 03-21 Route: l 16:50: IVPB, [place] 00 ONCE, Dosing Weight 70, kg, Start date: 03/21/16 11:50:00 CDT, Duration: 1 doses or times, Stop date: 03/21/16 11:50:00 CDT, Surgical Prophylaxi s Only; For patients < 120 kg Ancef 0 No 2 gm, Memoria 03-21 Route: l 16:50: IVPB, [place] 00 ONCE, Dosing Weight 70, kg, Start date: 03/21/16 11:50:00 CDT, Duration: 1 doses or times, Stop date: 03/21/16 11:50:00 CDT, Surgical Prophylaxi s Only; For patients < 120 kg Ancef 0 No 2 gm, Memoria 03-21 Route: l 16:50: IVPB, [place] 00 ONCE, Dosing Weight 70, kg, Start date: 03/21/16 11:50:00 CDT, Duration: 1 doses or times, Stop date: 03/21/16 11:50:00 CDT, Surgical Prophylaxi s Only; For patients < 120 kg Ancef 0 No 2 gm, Memoria 28 Route: l 16:50: IVPB, [place] 00 ONCE, Dosing Weight 70, kg, Start date: 03/21/16 11:50:00 CDT, Duration: 1 doses or times, Stop date: 03/21/16 11:50:00 CDT, Surgical Prophylaxi s Only; For patients < 120 kg Ancef No 2 gm, Memoria 03-21 Route: l 16:50: IVPB, [place] 00 ONCE, Dosing Weight 70, kg, Start date: 03/21/16 11:50:00 CDT, Duration: 1 doses or times, Stop date: 03/21/16 11:50:00 CDT, Surgical Prophylaxi s Only; For patients < 120 kg Isolyte S No Notes: Memori a (PH 7.4) 03-21 (Same as: l 1000 mL 13:40: Isolyte S [place] nn 1,000 mL 00 PH 7.4) Isolyte S No Notes: Memori a (PH 7.4) 03-21 (Same as: l 1000 mL 13:40: Isolyte S [place] nn 1,000 mL 00 PH 7.4) Isolyte S No Notes: Memori a (PH 7.4) 03-21 (Same as: l 1000 mL 13:40: Isolyte S [place] nn 1,000 mL 00 PH 7.4) Isolyte S No Notes: Memori a (PH 7.4) 03-21 (Same as: l 1000 mL 13:40: Isolyte S [place] nn 1,000 mL 00 PH 7.4) Isolyte S No Notes: Memori a (PH 7.4) 03-21 (Same as: l 1000 mL 13:40: Isolyte S [place] nn 1,000 mL 00 PH 7.4) multivitami Yes 1 tab, PO, Memoria n - Daily, 0 l 12:37: Refill(s) [place] multivitami Yes 1 tab, PO, Memoria n - Daily, 0 l 12:37: Refill(s) [place] multivitami Yes 1 tab, PO, Memoria n - Daily, 0 l 12:37: Refill(s) [place] multivitami Yes 1 tab, PO, Memoria n 6- Daily, 0 l 12:37: Refill(s) [place] 00 multivitami Yes 1 tab, PO, Memoria n - Daily, 0 l 12:37: Refill(s) [place] 00 Enalapril No 1 tab, PO, Me moria Maleate 5 03-21 Daily, 0 l MG / 12:36: Refill(s) [place] Hydrochloro 00 thiazide 12.5 MG Oral Tablet Enalapril No 1 tab, PO, Me moria Maleate 5 03-21 Daily, 0 l MG / 12:36: Refill(s) [place] Hydrochloro 00 thiazide 12.5 MG Oral Tablet Enalapril No 1 tab, PO, Me moria Maleate 5 03-21 Daily, 0 l MG / 12:36: Refill(s) [place] Hydrochloro 00 thiazide 12.5 MG Oral Tablet Enalapril No 1 tab, PO, Me moria Maleate 5 03-21 Daily, 0 l MG / 12:36: Refill(s) [place] Hydrochloro 00 thiazide 12.5 MG Oral Tablet Enalapril No 1 tab, PO, Me moria Maleate 5 03-21 Daily, 0 l MG / 12:36: Refill(s) [place] Hydrochloro 00 thiazide 12.5 MG Oral Tablet D5W 1/2NS + No Notes: Stefan catrachito KCL 20mEq/L 03-21 PREMIX IV l 1000ml 11:38: - Do Not [place] (Premix) 00 Alter 1,000 mL WASTE: F/P - Sink; E - Municipal Trash Bin Sodium No 1,000 mL, Memori a Chloride 03-21 1,000 l 0.154 11:38: ml/hr, [place] MEQ/ML 00 Infuse Injectable Over: 1 Solution hr, Route: IV, ONCE, Priority: STAT, Dosing Weight 70 kg, Start date: 03/21/16 6:38:00 CDT, Duration: 1 doses or times, Stop date: 03/21/16 6:38:00 CDT D5W 1/2NS + No Notes: Stefan catrachito KCL 20mEq/L 03-21 PREMIX IV l 1000ml 11:38: - Do Not [place] (Premix) 00 Alter 1,000 mL WASTE: F/P - Sink; E - Municipal Trash Bin Sodium 2016-0 No 1,000 mL, Memori a Chloride 6-28 1,000 l 0.154 11:38: ml/hr, [place] MEQ/ML 00 Infuse Injectable Over: 1 Solution hr, Route: IV, ONCE, Priority: STAT, Dosing Weight 70 kg, Start date: 03/21/16 6:38:00 CDT, Duration: 1 doses or times, Stop date: 03/21/16 6:38:00 CDT D5W 1/2NS + 2015-0 No Notes: Stefan catrachito KCL 20mEq/L 6-28 PREMIX IV l 1000ml 11:38: - Do Not [place] (Premix) 00 Alter 1,000 mL WASTE: F/P - Sink; E - Municipal Trash Bin Sodium 0 No 1,000 mL, Memori a Chloride 6-28 1,000 l 0.154 11:38: ml/hr, [place] MEQ/ML 00 Infuse Injectable Over: 1 Solution hr, Route: IV, ONCE, Priority: STAT, Dosing Weight 70 kg, Start date: 03/21/16 6:38:00 CDT, Duration: 1 doses or times, Stop date: 03/21/16 6:38:00 CDT D5W 1/2NS + 2015-0 No Notes: Stefan catrachito KCL 20mEq/L 6-28 PREMIX IV l 1000ml 11:38: - Do Not [place] (Premix) 00 Alter 1,000 mL WASTE: F/P - Sink; E - Municipal Trash Bin Sodium 0 No 1,000 mL, Memori a Chloride 6-28 1,000 l 0.154 11:38: ml/hr, [place] MEQ/ML 00 Infuse Injectable Over: 1 Solution hr, Route: IV, ONCE, Priority: STAT, Dosing Weight 70 kg, Start date: 03/21/16 6:38:00 CDT, Duration: 1 doses or times, Stop date: 03/21/16 6:38:00 CDT D5W 1/2NS + 2015-0 No Notes: Stefan catrachito KCL 20mEq/L 6-28 PREMIX IV l 1000ml 11:38: - Do Not [place] (Premix) 00 Alter 1,000 mL WASTE: F/P - Sink; E - Municipal Trash Bin Sodium No 1,000 mL, Memori a Chloride 03-21 1,000 l 0.154 11:38: ml/hr, [place] MEQ/ML 00 Infuse Injectable Over: 1 Solution hr, Route: IV, ONCE, Priority: STAT, Dosing Weight 70 kg, Start date: 03/21/16 6:38:00 CDT, Duration: 1 doses or times, Stop date: 03/21/16 6:38:00 CDT Lactated No 1,000 mL, Stefan catrachito Ringers 03-21 Rate: 125 l 1,000 mL 11:36: ml/hr, [place] 00 Infuse over: 8 hr, Route: IV, Dosing Weight 70 kg, Total Volume: 1,000, Start date: 03/21/16 6:36:00 CDT, Duration: 30 day, Stop date: 04/20/16 6:35:00 CDT Saline No Notes: Memoria Flush 0.9% 03-21 Same as: l 11:36: BD [place] Posiflush Sterile Acetaminoph No Notes: Do M emoria en 03-21 not exceed l 11:36: 4 gm/day. [place] 00 (Same as: Tylenol) Docusate No Notes: Memoria 03-21 (Same as: l 11:36: Colace) [place] (Do Not Crush) Ondansetron No Notes: Stefan catrachito 03-21 (Same as: l 11:36: Zofran) [place] 00 MEDICATION WASTE Product Size: 4 mg Product Wasted: ___ mg Morphine No Notes: Memoria 03-21 (Same l 11:36: as:MORPhin [place] 00 e Sulfate) Lactated No 1,000 mL, Stefan catrachito Ringers 03-21 Rate: 125 l 1,000 mL 11:36: ml/hr, [place] 00 Infuse over: 8 hr, Route: IV, Dosing Weight 70 kg, Total Volume: 1,000, Start date: 03/21/16 6:36:00 CDT, Duration: 30 day, Stop date: 04/20/16 6:35:00 CDT Saline No Notes: Memoria Flush 0.9% 03-21 Same as: l 11:36: BD [place] 00 Posiflush Sterile Acetaminoph No Notes: Do M emoria en 03-21 not exceed l 11:36: 4 gm/day. [place] 00 (Same as: Tylenol) Docusate No Notes: Memoria 03-21 (Same as: l 11:36: Colace) [place] 00 (Do Not Crush) Ondansetron No Notes: Stefan catrachito 03-21 (Same as: l 11:36: Zofran) [place] 00 MEDICATION WASTE Product Size: 4 mg Product Wasted: ___ mg Morphine No Notes: Memoria 03-21 (Same l 11:36: as:MORPhin [place] 00 e Sulfate) Lactated No 1,000 mL, Stefan catrachito Ringers 03-21 Rate: 125 l 1,000 mL 11:36: ml/hr, [place] 00 Infuse over: 8 hr, Route: IV, Dosing Weight 70 kg, Total Volume: 1,000, Start date: 03/21/16 6:36:00 CDT, Duration: 30 day, Stop date: 04/20/16 6:35:00 CDT Saline No Notes: Memoria Flush 0.9% 03-21 Same as: l 11:36: BD [place] Posiflush Sterile Acetaminoph No Notes: Do M emoria en 03-21 not exceed l 11:36: 4 gm/day. [place] 00 (Same as: Tylenol) Docusate No Notes: Memoria 03-21 (Same as: l 11:36: Colace) [place] 00 (Do Not Crush) Ondansetron No Notes: Stefan catrachito 03-21 (Same as: l 11:36: Zofran) [place] 00 MEDICATION WASTE Product Size: 4 mg Product Wasted: ___ mg Morphine No Notes: Memoria 03-21 (Same l 11:36: as:MORPhin [place] 00 e Sulfate) Lactated No 1,000 mL, Stefan catrachito Ringers - Rate: 125 l 1,000 mL 11:36: ml/hr, [place] 00 Infuse over: 8 hr, Route: IV, Dosing Weight 70 kg, Total Volume: 1,000, Start date: 03/21/16 6:36:00 CDT, Duration: 30 day, Stop date: 04/20/16 6:35:00 CDT Saline No Notes: Memoria Flush 0.9% - Same as: l 11:36: BD [place] 00 Posiflush Sterile Acetaminoph No Notes: Do M emoria en 03-21 not exceed l 11:36: 4 gm/day. [place] 00 (Same as: Tylenol) Docusate No Notes: Memoria 03-21 (Same as: l 11:36: Colace) [place] 00 (Do Not Crush) Ondansetron No Notes: Stefan catrachito 03-21 (Same as: l 11:36: Zofran) [place] 00 MEDICATION WASTE Product Size: 4 mg Product Wasted: ___ mg Morphine No Notes: Memoria - (Same l 11:36: as:MORPhin [place] 00 e Sulfate) Lactated No 1,000 mL, Stefan catrachito [place] 03-21 Rate: 125 l 1,000 mL 11:36: ml/hr, [place] 00 Infuse over: 8 hr, Route: IV, Dosing Weight 70 kg, Total Volume: 1,000, Start date: 03/21/16 6:36:00 CDT, Duration: 30 day, Stop date: 04/20/16 6:35:00 CDT Saline No Notes: Memoria Flush 0.9% - Same as: l 11:36: BD [place] 00 Posiflush Sterile Acetaminoph No Notes: Do M emoria en 03-21 not exceed l 11:36: 4 gm/day. [place] 00 (Same as: Tylenol) Docusate No Notes: Memoria 03-21 (Same as: l 11:36: Colace) [place] 00 (Do Not Crush) Ondansetron No Notes: Stefan catrachito 6-28 (Same as: l 11:36: Zofran) [place] 00 MEDICATION WASTE Product Size: 4 mg Product Wasted: ___ mg Morphine 2015-0 No Notes: Memoria 03-21 (Same l 11:36: as:MORPhin [place] 00 e Sulfate) Morphine 2015-0 No 4 mg, Memoria 03-21 Route: l 10:07: IVP, Drug [place] 00 form: INJ, ONCE, Dosing Weight 70, kg, Priority: STAT, Start date: 03/21/16 5:07:00 CDT, Stop date: 03/21/16 5:07:00 CDT Morphine 2015-0 No 4 mg, Memoria 03-21 Route: l 10:07: IVP, Drug [place] 00 form: INJ, ONCE, Dosing Weight 70, kg, Priority: STAT, Start date: 03/21/16 5:07:00 CDT, Stop date: 03/21/16 5:07:00 CDT Morphine 2015-0 No 4 mg, Memoria 03-21 Route: l 10:07: IVP, Drug [place] 00 form: INJ, ONCE, Dosing Weight 70, kg, Priority: STAT, Start date: 03/21/16 5:07:00 CDT, Stop date: 03/21/16 5:07:00 CDT Morphine 2015-0 No 4 mg, Memoria 03-21 Route: l 10:07: IVP, Drug [place] 00 form: INJ, ONCE, Dosing Weight 70, kg, Priority: STAT, Start date: 03/21/16 5:07:00 CDT, Stop date: 03/21/16 5:07:00 CDT Morphine 2015-0 No 4 mg, Memoria 03-21 Route: l 10:07: IVP, Drug [place] 00 form: INJ, ONCE, Dosing Weight 70, kg, Priority: STAT, Start date: 03/21/16 5:07:00 CDT, Stop date: 03/21/16 5:07:00 CDT Calcium 2016-0 No 1,000 mL, Memor ia Chloride 03-21 1,000 l 0.0014 05:16: ml/hr, [place] MEQ/ML / 00 Infuse Potassium Over: 1 Chloride hr, Route: 0.004 IV, ONCE, MEQ/ML / Priority: Sodium STAT, Chloride Dosing 0.103 Weight 70 MEQ/ML / kg, Start Sodium date: Lactate 03/21/16 0.028 0:16:00 MEQ/ML CDT, Injectable Duration: Solution 1 doses or times, Stop date: 03/21/16 0:16:00 CDT Calcium 2016-0 No 1,000 mL, Memor ia Chloride 6-28 1,000 l 0.0014 05:16: ml/hr, [place] MEQ/ML / 00 Infuse Potassium Over: 1 Chloride hr, Route: 0.004 IV, ONCE, MEQ/ML / Priority: Sodium STAT, Chloride Dosing 0.103 Weight 70 MEQ/ML / kg, Start Sodium date: Lactate 03/21/16 0.028 0:16:00 MEQ/ML CDT, Injectable Duration: Solution 1 doses or times, Stop date: 03/21/16 0:16:00 CDT Calcium 2016-0 No 1,000 mL, Memor ia Chloride 6-28 1,000 l 0.0014 05:16: ml/hr, [place] MEQ/ML / 00 Infuse Potassium Over: 1 Chloride hr, Route: 0.004 IV, ONCE, MEQ/ML / Priority: Sodium STAT, Chloride Dosing 0.103 Weight 70 MEQ/ML / kg, Start Sodium date: Lactate 03/21/16 0.028 0:16:00 MEQ/ML CDT, Injectable Duration: Solution 1 doses or times, Stop date: 03/21/16 0:16:00 CDT Calcium 2016-0 No 1,000 mL, Memor ia Chloride 6-28 1,000 l 0.0014 05:16: ml/hr, [place] MEQ/ML / 00 Infuse Potassium Over: 1 Chloride hr, Route: 0.004 IV, ONCE, MEQ/ML / Priority: Sodium STAT, Chloride Dosing 0.103 Weight 70 MEQ/ML / kg, Start Sodium date: Lactate 03/21/16 0.028 0:16:00 MEQ/ML CDT, Injectable Duration: Solution 1 doses or times, Stop date: 03/21/16 0:16:00 CDT Calcium 2016-0 No 1,000 mL, Memor ia Chloride 6-28 1,000 l 0.0014 05:16: ml/hr, [place] MEQ/ML / 00 Infuse Potassium Over: 1 Chloride hr, Route: 0.004 IV, ONCE, MEQ/ML / Priority: Sodium STAT, Chloride Dosing 0.103 Weight 70 MEQ/ML / kg, Start Sodium date: Lactate 03/21/16 0.028 0:16:00 MEQ/ML CDT, Injectable Duration: Solution 1 doses or times, Stop date: 03/21/16 0:16:00 CDT Morphine 2016-0 No 4 mg, Memoria 6-28 Route: l 05:12: IVP, Drug [place] 00 form: INJ, ONCE, Dosing Weight 70, kg, Priority: STAT, Start date: 03/21/16 0:12:00 CDT, Stop date: 03/21/16 0:12:00 CDT Morphine 2016-0 No 4 mg, Memoria 6- Route: l 05:12: IVP, Drug [place] 00 form: INJ, ONCE, Dosing Weight 70, kg, Priority: STAT, Start date: 03/21/16 0:12:00 CDT, Stop date: 03/21/16 0:12:00 CDT Morphine 2016-0 No 4 mg, Memoria 6- Route: l 05:12: IVP, Drug [place] 00 form: INJ, ONCE, Dosing Weight 70, kg, Priority: STAT, Start date: 03/21/16 0:12:00 CDT, Stop date: 03/21/16 0:12:00 CDT Morphine 2016-0 No 4 mg, Memoria 6- Route: l 05:12: IVP, Drug [place] 00 form: INJ, ONCE, Dosing Weight 70, kg, Priority: STAT, Start date: 03/21/16 0:12:00 CDT, Stop date: 03/21/16 0:12:00 CDT Morphine 2016-0 No 4 mg, Memoria 6- Route: l 05:12: IVP, Drug [place] 00 form: INJ, ONCE, Dosing Weight 70, kg, Priority: STAT, Start date: 03/21/16 0:12:00 CDT, Stop date: 03/21/16 0:12:00 CDT Zofran 2016-0 No 4 mg, Memoria 6-28 Route: l 05:11: IVP, Drug [place] 00 form: INJ, ONCE, Dosing Weight 70, kg, Priority: STAT, Start date: 03/21/16 0:11:00 CDT, Stop date: 03/21/16 0:11:00 CDT Zofran 2016-0 No 4 mg, Memoria 03-21 Route: l 05:11: IVP, Drug [place] 00 form: INJ, ONCE, Dosing Weight 70, kg, Priority: STAT, Start date: 03/21/16 0:11:00 CDT, Stop date: 03/21/16 0:11:00 CDT Zofran 2016-0 No 4 mg, Memoria 03-21 Route: l 05:11: IVP, Drug [place] 00 form: INJ, ONCE, Dosing Weight 70, kg, Priority: STAT, Start date: 03/21/16 0:11:00 CDT, Stop date: 03/21/16 0:11:00 CDT Zofran 2016-0 No 4 mg, Memoria 03-21 Route: l 05:11: IVP, Drug [place] 00 form: INJ, ONCE, Dosing Weight 70, kg, Priority: STAT, Start date: 03/21/16 0:11:00 CDT, Stop date: 03/21/16 0:11:00 CDT Zofran 2016-0 No 4 mg, Memoria 03-21 Route: l 05:11: IVP, Drug [place] 00 form: INJ, ONCE, Dosing Weight 70, kg, Priority: STAT, Start date: 03/21/16 0:11:00 CDT, Stop date: 03/21/16 0:11:00 CDT Immunizations Ordered Filled Immunization Date Status Comments [facility] e Immunization Name Name SARS-COV-2 COVID-19 2021-08-25 Completed Unive rsity of MARJ/J&J VACCINE 00:00:00 [facility] SARS-COV-2 COVID-19 2021-08-25 Completed Unive rsity of MARJ/J&J VACCINE 00:00:00 [facility] SARS-COV-2 COVID-19 2021-08-25 Completed Unive rsity of MARJ/J&J VACCINE 00:00:00 [facility] SARS-COV-2 COVID-19 2021-08-25 Completed Unive rsity of MARJ/J&J VACCINE 00:00:00 [facility] SARS-COV-2 COVID-19 2021-08-25 Completed Unive rsity of MARJ/J&J VACCINE 00:00:00 [facility] SARS-COV-2 COVID-19 2021-08-25 Completed Unive rsity of MARJ/J&J VACCINE 00:00:00 [facility] SARS-COV-2 COVID-19 2021-08-25 Completed Unive rsity of MARJ/J&J VACCINE 00:00:00 [facility] SARS-COV-2 COVID-19 2021-08-25 Completed Unive rsity of MARJ/J&J VACCINE 00:00:00 [facility] SARS-COV-2 COVID-19 2021-08-25 Completed Unive rsity of MARJ/J&J VACCINE 00:00:00 [facility] SARS-COV-2 COVID-19 2021-08-25 Completed Unive rsity of MARJ/J&J VACCINE 00:00:00 [facility] SARS-COV-2 COVID-19 2021-08-25 Completed Unive rsity of MARJ/J&J VACCINE 00:00:00 [facility] SARS-COV-2 COVID-19 2021-08-25 Completed Unive rsity of MARJ/J&J VACCINE 00:00:00 [facility] SARS-COV-2 COVID-19 2020-11-22 Completed Unive rsity of MARJ/J&J VACCINE 00:00:00 [facility] SARS-COV-2 COVID-19 2020-11-22 Completed Unive rsity of MARJ/J&J VACCINE 00:00:00 [facility] SARS-COV-2 COVID-19 2020-11-22 Completed Unive rsity of MARJ/J&J VACCINE 00:00:00 [facility] SARS-COV-2 COVID-19 2020-11-22 Completed Unive rsity of MARJ/J&J VACCINE 00:00:00 [facility] SARS-COV-2 COVID-19 2020-11-22 Completed Unive rsity of MARJ/J&J VACCINE 00:00:00 [facility] SARS-COV-2 COVID-19 2020-11-22 Completed Unive rsity of MARJ/J&J VACCINE 00:00:00 [facility] SARS-COV-2 COVID-19 2020-11-22 Completed Unive rsity of MARJ/J&J VACCINE 00:00:00 [facility] SARS-COV-2 COVID-19 2020-11-22 Completed Unive rsity of MARJ/J&J VACCINE 00:00:00 [facility] SARS-COV-2 COVID-19 2020-11-22 Completed Unive rsity of MARJ/J&J VACCINE 00:00:00 [facility] SARS-COV-2 COVID-19 2020-11-22 Completed Unive rsity of MARJ/J&J VACCINE 00:00:00 [facility] SARS-COV-2 COVID-19 2020-11-22 Completed Unive rsity of MARJ/J&J VACCINE 00:00:00 [facility] SARS-COV-2 COVID-19 2020-11-22 Completed Unive rsity of MARJ/J&J VACCINE 00:00:00 [facility] Vital Signs Vital Name Observation Time Observation Value Comments Source Systolic blood 2022-08-16 16:42:00 130 mm[Hg] Univer sity of pressure [facility] Diastolic blood 2022-08-16 16:42:00 70 mm[Hg] Unive rsity of pressure [facility] BMI 2022-08-16 15:42:00 26.37 [facility]m2 [facility] O[facility] saturation in 2022-08-16 15:42:00 98 /min [facility] Arterial blood by [facility] Pulse oximetry Branch Heart rate 2022-08-16 15:42:00 76 /min [facility] Body temperature 2022-08-16 15:42:00 36.39 Pallavi [facility] 2022-08-16 15:42:00 152.4 cm [facility] Body weight 2022-08-16 15:42:00 61.236 kg [facility] Systolic blood 2022-08-13 22:00:00 128 mm[Hg] Univer sity of pressure [facility] Diastolic blood 2022-08-13 22:00:00 68 mm[Hg] Unive rsity of pressure [facility] Heart rate 2022-08-13 22:00:00 71 /min [facility] Respiratory rate 2022-08-13 22:00:00 18 /min [facility] Oxygen saturation in 2022-08-13 22:00:00 97 /min [facility] Arterial blood by [employer] [facility] Pulse oximetry Branch Body temperature 2022-08-13 20:23:00 36.56 Pallavi [facility] Body weight 2022-08-13 20:23:00 61.236 kg [facility] BMI 2022-08-13 20:23:00 26.37 kg/m2 [facility] Systolic blood 2022-08-08 04:46:00 115 mm[Hg] Univer [facility]ity [facility] Diastolic blood 2022-08-08 04:46:00 49 mm[Hg] Unive rsity of [facility] Heart rate 2022-08-08 04:46:00 72 /min [facility] Respiratory rate 2022-08-08 04:46:00 16 /min [facility] Oxygen saturation in 2022-08-08 04:46:00 96 /min [facility] Arterial blood by [employer] [facility] Pulse oximetry Branch Body temperature 2022-08-08 01:05:00 36.94 Pallavi [facility] Body height 2022-08-08 01:05:00 152.4 cm [facility] Body weight 2022-08-08 01:05:00 61.598 kg [facility] BMI 2022-08-08 01:05:00 26.52 kg/m2 [facility] Systolic blood 2022-05-24 16:30:00 137 mm[Hg] Univer [facility]ity [facility] Diastolic blood 2022-05-24 16:30:00 74 mm[Hg] Unive rsity of [facility] Heart rate 2022-05-24 16:21:00 74 /min [facility] Body height 2022-05-24 16:21:00 152.4 cm [facility] Body weight 2022-05-24 16:21:00 62.052 kg [facility] BMI 2022-05-24 16:21:00 26.72 kg/m2 [facility] Oxygen saturation in 2022-05-24 16:21:00 99 /min [facility]terial blood by [place] [facility] Pulse oxim[facility] Branch Systolic (mm Hg) 2016-03-23 21:25:00 Stefan rial [place] Diastolic (mm Hg) 2016-03-23 21:25:00 Mem orial [place] Heart Rate 2016-03-23 21:25:00 [facility] [place] Temperature Oral (F) 2016-03-23 21:25:00 98.6 F [facility] [place] Respitory Rate 2016-03-23 21:25:00 Memori al [place] Temperature Oral (F) 2016-03-23 17:28:00 98.2 F [facility] [place] Respitory Rate 2016-03-23 17:28:00 Memori al [place] Heart Rate 2016-03-23 17:28:00 [facility] [place] Systolic (mm Hg) 2016-03-23 17:28:00 Stefan rial [place] Diastolic (mm Hg) 2016-03-23 17:28:00 Mem orial [place] Systolic (mm Hg) 2016-03-23 13:28:00 Stefan rial [place] Diastolic (mm Hg) 2016-03-23 13:28:00 Mem orial [place] Respitory Rate 2016-03-23 13:28:00 Memori al [place] Heart Rate 2016-03-23 13:28:00 [facility] [place] Temperature Oral (F) 2016-03-23 13:28:00 97.6 F [facility] [place] Weight 2016-03-21 15:13:00 [facility] [place] Height 2016-03-21 15:13:00 [facility] 2016-03-21 15:13:00 Memori al [place] Weight 2016-03-21 00:38:00 [facility] 2016-03-21 00:38:00 [facility] [place] Height 2016-03-21 00:38:00 152.4 cm [facility] Procedures Procedure Date / Time Performing Clinician Source Performed URINALYSIS 2022-08-13 22:07:00 Dolores Coats [facility] LIPASE 2022-08-13 20:56:00 Dolores Coats [facility] TROPONIN I 2022-08-13 20:56:00 Dolores Coats [facility] COMP. METABOLIC PANEL 2022-08-13 20:56:00 Dolores Coats [facility] ([id number]) [facility] CBC WITH DIFF 2022-08-13 20:56:00 Dolores Coats [facility] CONSENT/REFUSAL FOR 2022-08-13 20:16:24 Doctor Unassigned, [facility] Name [facility] CT ABDOMEN PELVIS W 2022-08-08 03:31:42 Philomena Gusman [facility] CONTRAST [facility] COMP. METABOLIC PANEL 2022-08-08 02:33:00 Philomena Gusman [facility] ([id number]) [facility] LACTIC ACID WHOLE BLOOD 2022-08-08 01:28:00 Philomena Gusman [facility] LIPASE 2022-08-08 01:22:00 Philomena Gusman [facility] TROPONIN I 2022-08-08 01:22:00 Philomena Gusman [facility] CBC WITH DIFF 2022-08-08 01:22:00 Naseem [facility] PROTHROMBIN TIME / INR 2022-08-08 01:22:00 Philomena Gusman [facility] ACTIVATED PARTIAL 2022-08-08 01:22:00 [facility]AN [facility] URINALYSIS 2022-08-08 01:22:00 [facility]UENZA A/B 2022-08-08 01:22:00 Philomena [facility] N-TERMINAL PRO-BNP 2022-08-08 01:22:00 Philomena Gusman [facility] NOTICE OF PRIVACY 2022-08-08 00:54:00 Doctor Unassigned, No [facility] PRACTICES Name [facility] CONSENT/REFUSAL FOR 2022-08-08 00:52:43 Doctor Unassigned, No [facility] Name [facility] section [facility] Vick avendaño Encounters Start End Encounter Admission Attending Care Care Encounter Source Date/Time Date/Time Type Type Clinicians Facility Department ID 2022-07-06 Outpatient [facility] [id number] [place] 12:18:46 [id number] [facility] 2022-09-08 2022-09-08 Telephone GARETH Redd [id number] [facility] 00:00:00 00:00:00 Klaee RIVERS 350.1.13.10 ity of [facility] [id number] Mariano as [id number] [address] 2022-08-16 2022-08-16 Outpatient R SHELLIE [facility] [id number] Univers 09:30:00 10:22:38 VERAN veronica [facility] 2022-08-16 2022-08-16 [facility] [id number] Univers 09:30:00 10:22:38 Visit Verna A [facility] [id number] i ty of [place] [id number] Mariano as GILBERTO?BLEA [id number] Wi perla GREENE [address] [place] [address] MEDICAL OFFICE BUILDING 2022-08-13 2022-08-13 Emergency [facility] E[facility] [id number] Univers 14:28:00 16:42:00 DOLORES veronica [facility] 2022-08-13 2022-08-13 Emergency [facility] 1.2.840.114 [id number] Univers 14:28:00 16:42:00 Dolores BURGOS 350.1.13.10 ity of [place] 4.2.7.2.686 [id number] [address] 2022-08-07 2022-08-07 Emergency [facility] ERT [id number] Univers 19:10:00 23:11:00 PHILOMENA jeremías [facility] 2022-08-07 2022-08-07 Emergency [facility] [id number] Univers 19:10:00 23:11:00 Philomena BURGOS 350.1.13.10 i ty of [place] 4.2.7.2.686 [place] [id number] [address] 2022-06-03 2022-06-03 [facility] 1.2.840.114 [id number] Univers 00:00:00 00:00:00 [facility] 350.1.13.10 ity of [place] 4.2.7.2.686 Mariano as GILBERTO?BLEA [id number] Me perla GREENE 092 [facility] OFFICE [facility] 2022-05-24 2022-05-24 Office [facility] [id number] Univers 11:30:00 12:00:00 Visit Verna Dumont HEALTH 350.1.13.10 i ty of [place] 4.2.7.2.686 Mariano as GILBERTO?BLEA [id number] [facility] IAN 044 [facility] OFFICE [facility] 2022-05-24 2022-05-24 Outpatient R SHELLIE [facility] [id number] Univers 11:30:00 11:30:00 VERNA edmar [facility] 2022-05-24 2022-05-24 Outpatient R SHELLIE [facility] [id number] Univers 11:30:00 11:30:00 VERNA [facility] 2022-04-07 2022-04-07 Outpatient R JUSTICE GRANDE [facility] [id number] Univers 13:20:00 14:03:27 JUSTICE GRANDE [facility] 2022-04-07 2022-04-07 Office [facility] [id number] [id number] Univers 13:20:00 14:03:27 Visit Justice Stephen HEALTH 350.1.13.10 ity of [place] 4.2.7.2.686 Mariano as GILBRETO?BLEA [id number] [facility] [address] [place] [address] OFFICE [facility] 2022-04-06 2022-04-06 Telephone [facility] [id number] Univers 00:00:00 00:00:00 Verna Dumont HEALTH 350.1.13.10 i ty of [place] 4.2.7.2.686 Mariano as GILBERTO?BLEA [id number] [address] OFFICE [facility] 2022-04-04 2022-04-04 [employer], Ang - Db [facility] 1.2.840.1 [id number] Univers 07:45:00 08:00:00 Visit Nanci Arvizuhenry Dumont HEALTH 350.1.13.10 ity of [place] 4.2.7.2.686 Mariano as GILBERTO?BLEA [id number] Me perla GREENE [address] MEDICAL OFFICE BUILDING 2022-04-04 2022-04-04 Outpatient R SHELLIE [facility] [id number] Univers 07:45:00 07:45:00 VERNA veronica [facility] 2022-03-31 2022-03-31 [facility] 1.2.840.114 [id number] Univers 14:30:00 15:13:32 Visit Verna A HEALTH 350.1.13.10 i ty of [place] 4.2.7.2.686 Mariano as GILBERTO?BLEA [id number] [address] OFFICE [facility] 2022-03-31 2022-03-31 [facility] [id number] Univers 14:30:00 15:13:32 VERNA ity [facility] 2022-03-31 2022-03-31 Outpatient [facility] [id number] Univers 14:30:00 14:30:00 VERNA ity [facility] 2022-03-30 2022-03-30 Refill [facility] 1.2.840.114 [id number] Univers 00:00:00 00:00:00 Wondiful A HEALTH 350.1.13.10 ity of [place] 4.2.7.2.686 Mariano as GILBERTO?BLEA [id number] [address] OFFICE [facility] 2022-02-01 2022-02-01 Telephone [facility] [id number] Univers 00:00:00 00:00:00 Jeremy HEALTH 350.1.13.10 it y of [place] 4.2.7.2.686 Mariano as GILBERTO?BLEA [id number] [address] MEDICAL OFFICE [facility] 2022-02-01 2022-02-01 Orders Doctor SERVIN 1.2.840.114 [id number] Univers 00:00:00 00:00:00 Only Unassigned, TITA 350.1.13.10 ity of [place] [facility] 4.2.7.2.686 Mariano as [id number] [address] 2022-01-18 2022-01-18 Telephone [facility] 1.2.840.114 [id number] Univers 00:00:00 00:00:00 Wondiful A HEALTH 350.1.13.10 ity of [place] 4.2.7.2.686 Mariano as GILBERTO?BLEA [id number] Wi perla SOSA [address] MEDICAL OFFICE [facility] 2021-12-30 2021-12-30 Outpatient R JUSTICE GRANDE [facility] [id number] Univers 16:20:00 16:20:00 JUSTICE GRANDE [facility] 2021-12-28 2021-12-28 Outpatient R SHELLIE [facility] [id number] Univers 16:30:00 16:30:00 VERNA [facility] 2021-10-16 2021-10-16 Letter GARETH Burks [id number] [id number] Univers 00:00:00 00:00:00 (Out) Lazara Baltazar TITA 350.1.13.10 it y of HOSPITAL 4.2.7.2.686 Mariano as [id number] [facility] [address] 2021-10-15 2021-10-15 Laboratory Only, Ang Db Test [facility] 1.2.8 40.114 [id number] Univers 09:15:00 09:30:00 Only Marla Rossi HEALTH 350.1.13.10 ity of [place] 4.2.7.2.686 Mariano as GILBERTO?BLEA [phone] Wi jovannahilario GREENE [address] MEDICAL OFFICE [facility] 2021-10-15 2021-10-15 [facility] [id number] Univers 09:15:00 09:15:00 [facility] 2021-10-07 2021-10-07 [facility], Ang - Db [facility] 1.2.840.1 [id number] Univers 10:30:00 13:58:49 Visit Naseem Branch A HEALTH 350.1.13.1 0 ity of [place] 4.2.7.2.686 Mariano as GILBERTO?BLEA [phone] Wi perla GREENE [address] MEDICAL OFFICE BUILDING 2021-10-07 2021-10-07 Outpatient R SARINA [facility] [id number] Univers 10:30:00 10:30:00 WONDIFUL ity o f [facility] 2021-10-06 2021-10-06 Outpatient R SARINA [facility] [id number] Univers 11:00:00 11:51:28 WONDIFUL ity o f [facility] 2021-10-06 2021-10-06 Office [facility] 1.2.840.114 [id number] Univers 11:00:00 11:51:28 Visit Wondiful A HEALTH 350.1.13.10 [facility] 4.2.7.2.686 Mariano as GILBERTO?BLEA [id number] Wi perla GREENE [address] MEDICAL OFFICE [facility] 2021-10-06 2021-10-06 Outpatient R SARINA [facility] [id number] Univers 11:00:00 11:51:28 WONDIFUL ity o f [facility] 2021-10-01 2021-10-01 Refill [facility] 1.2.840.114 [id number] Univers 00:00:00 00:00:00 Wondiful A HEALTH 350.1.13.10 ity of [place] 4.2.7.2.686 Mariano as PROFESSIO [id number] [address] OFFICE [facility] ONE 2021-08-25 2021-08-25 Orders Doctor GARETH 1.2.840.114 [id number] Univers 00:00:00 00:00:00 Only Unassigned, TITA 350.1.13.10 ity of [place] [facility] 4.2.7.2.686 Mariano as [id number] [facility] [address] 2021-05-27 2021-05-27 Telephone GARETH Bazzi [id number] Univers 00:00:00 00:00:00 Aneatrice TITA 350.1.13.10 ity of HOSPITAL 4.2.7.2.686 Mariano as [id number] [facility] [address] 2021-05-25 2021-05-25 Laboratory Only, Ang Db Test [facility] 1.2.8 40.114 [id number] Univers 12:41:34 12:51:34 Only Marla Rossi Health 350.1.13.10 ity of [place] 4.2.7.2.686 Mariano as Gilberto?Blea [phone] Wi perla greene [address] [facility] Office [facility] 2021-05-25 2021-05-25 Outpatient R [facility] [id number] Univers 12:30:00 12:30:00 ity of [facility] 2021-04-08 2021-04-08 Telephone [facility] 1.2.840.114 [id number] Univers 00:00:00 00:00:00 Wondiful A Health 350.1.13.10 ity of [place] 4.2.7.2.686 Mariano as Professio [id number] [address] One 2021-04-06 2021-04-06 Case [facility] 1..840.114 [id number] Univers 00:00:00 00:00:00 Management [facility] [id number] ity of [place] [id number] Mariano as Professio [phone] [address] One 2021-04-04 2021-04-04 [facility] [id number] Univers 11:15:00 11:15:00 WONDIFUL ity o f [facility] 2021-03-30 2021-03-30 [facility]phone [facility] [id number] Univers 00:00:00 00:00:00 [facility] [id number] ity of [place] [id number] Mariano as Professio [phone] [address] Office [facility] One 2021-03-28 2021-03-28 [employer] [facility], Adc Fam Pob I [facility] 1.2. [id number] [id number] Univers 08:02:10 08:22:10 Visit Bin [facility] 350.1.13.1 0 ity of [place] [id number] Mariano as Professio [phone] [address] Office [facility] One 2021-03-28 2021-03-28 Outpatient R SARINA [facility] [id number] Univers 08:00:00 08:00:00 WONDIFUL ity o f [facility] 2021-03-25 2021-03-25 Office [facility] 1.2.840.114 [id number] Univers 12:58:21 13:30:36 Visit [facility] 350.1.13.10 ity of [place] [id number] Mariano as Professio [phone] [address] Office [facility] One 2021-03-25 2021-03-25 Outpatient R SARINA [facility] [id number] Univers 13:00:00 13:00:00 WONDIFUL ity o f [facility] 2021-03-17 2021-03-17 [facility] 1.2.840.114 [id number] Univers 00:00:00 00:00:00 [facility] 350.1.13.10 ity of [place] 4.2.7.2.686 Mariano as Professio [phone] [address] One 2021-03-16 2021-03-16 Refgilma [facility]SI[facility] 1.2.840.114 [id number] Univers 00:00:00 00:00:00 [facility] [id number] ity of [place] [id number] [place] as Professio [phone] [address] Office [facility] One 2021-03-14 2021-03-14 Telephone [facility] 1.2.840.114 [id number] Univers 00:00:00 00:00:00 [facility] [id number] ity of [place] 4.2.7.2.686 [place] as Professio [phone] [address] Office [facility] One 2021-03-08 2021-03-08 Urgent Provider, [facility] 1.2.840.114 [id number] Univers 11:15:49 12:04:16 Care Grecia [facility] 350.1.13.10 ity of [place] 4.2.7.2.686 [place] as Professio [phone] Wi dical nal 044 [facility] One 2021-03-08 2021-03-08 Outpatient R GRECIA [facility] [id number] Univers 11:20:00 11:20:00 LISSET ity of [facility] 2021-02-11 2021-02-11 [facility]gilma [facility] 1.2.840.114 [id number] Univers 00:00:00 00:00:00 [facility] [id number] ity of [place] 4.2.7.2.686 [place] as Professio [phone] Wi dical nal 044 [facility] One 2021-02-04 2021-02-04 Sharlene Branch [facility] 1.2.840.114 [id number] Univers 00:00:00 00:00:00 [facility] 350.1.13.10 ity of [place] 4.2.7.2.686 [place] as Professio [phone] Wi dical nal 044 [facility] One 2021-01-18 2021-01-18 Iris Branch [facility] 1.2.840.114 [id number] Univers 00:00:00 00:00:00 [facility] 350.1.13.10 ity of [place] 4.2.7.2.686 [place]iano as Professio [phone] Wi dical nal 044 [facility] One 2021-01-18 2021-01-18 Iris Grande [facility] 1.2.840.114 [id number] Univers 00:00:00 00:00:00 Justice Gene [place] 350.1.13.10 ity of [place] 4[place]2.7.2.[place] [phone] Wi dical nal 092 [facility] 2021-01-16 2021-01-16 Iris Branch [facility] 1.2.840.114 [id number] Univers 00:00:00 00:00:00 [facility] 350.1.13.10 ity of [place] 4.2.7.2.686 Mariano as Professio [phone] Wi perla [place] 044 [facility] One 2020-12-21 2020-12-21 Refill Sarina [facility] 1.2.840.114 [id number] Univers 00:00:00 00:00:00 [facility] 350.1.13.10 ity of [place] 4.2.7.2.686 [place]iano as Professio [phone] [facility] [address] [place] [address] One 2020-12-15 2020-12-15 [facility]ill [facility] 1.2.840.114 [id number] Univers 00:00:00 00:00:00 [facility] 350.1.13.10 ity of [place] 4.2.7.2.686 Mariano as Professio [phone] Wi perla nal 044 [facility] 2020-04-20 2020-04-20 Office [facility] 1.2.840.114 [id number] Univers 08:43:11 11:52:29 Visit Wondiful A [place] 350.1.13.10 ity of [place]2.7.2.[place] Profess[place] [phone] Wi jovannaal yara 044 [facility] 2020-04-20 2020-04-20 Wheel Grinder 2, Adc Lab [facility] 1.2.840.114 [id number] Univers 09:17:40 09:32:40 Visit [place]Rashawn cardenassumeet Tim [place] 350.1.13. 10 ity of [place] 4[place]2.7.2.[place] Profess[place] [phone] Wi perla nal 353 [facility] 2020-04-20 2020-04-20 Outpatient R SARINA [facility] [id number] Univers 08:30:00 08:30:00 WONDIFUL ity o f [facility] 2020-01-16 2020-01-16 Outpatient R JUSTICE GRANDE [facility] [id number] [facility] 14:20:00 14:20:00 JUSTICE GRANDE of [facility] 2019-12-03 2019-12-03 Outpatient VIDHYA MCRAE [facility] [id number] Univers 15:00:00 15:00:00 JELANIMICAELA VIDHYA [facility] 2019-11-27 2019-11-27 Telephone Sarina [facility] 1.2.840.114 [id number] Univers 00:00:00 00:00:00 [facility] 350.1.13.10 ity of [place] 4.2.7.2.686 Mariano as Professio [phone] [address] 2019-11-18 2019-11-18 Office Christiane [facility] 1.2.840.114 [id number] Univers 15:46:10 16:35:06 Visit Justice Stephen [place] 350.1.13.10 ity of [place].2.[place] Profess[place] [phone] [facility] 092 [facility] 2019-11-18 2019-11-18 Outpatient R JUSTICE GRANDE [facility] [id number] Univers 16:20:00 16:20:00 JUSTICE GRANDE [facility] 2019-10-30 2019-10-30 Telephone [facility] 1.2.840.114 [id number] Univers 00:00:00 00:00:00 [facility] 350.1.13.10 ity of [place] 4.2.7.2.686 Mariano as Professio [phone] [address] 2019-10-29 2019-10-29 Letter [facility] 1.2.840.114 [id number] Univers 00:00:00 00:00:00 (Out) [facility] 350.1.13.10 ity of [place] 4.2.7.2.686 Mariano as Professio [phone] [address] 2019-10-21 2019-10-21 Office [facility] 1.2.840.114 [id number] Univers 08:13:54 09:07:05 Visit [facility] 350.1.13.10 ity of [place] 4.2.7.2.686 Mariano as Professio [phone] Wi dical nal [address] One 2019-05-27 2019-05-27 Office JEMAL Scruggs 1.2.840.114 [id number] Univers 16:20:12 16:44:47 Visit [facility] 350.1.13.10 i ty of [place] 4.2.7.2.686 Mariano as Professio [phone] Wi dical nal [address] One 2019-05-27 2019-05-27 Orders Doctor GARETH 1.2.840.114 [id number] Univers 00:00:00 00:00:00 Only Unassigned, TITA 350.1.13.10 ity of [place] [facility] 4.2.7.2.686 Mariano as [phone] [address] 2016-03-21 2016-03-23 Inpatient [facility] [id number] Memoria 00:02:00 21:45:[address] 2016-03-21 2016-03-23 Inpatient [facility] [id number] Memoria 00:02:00 21:45:[address] 2016-03-20 2016-03-23 Outpatient Tony, [facility] [id number] 19:02:00 16:45:00 Yared 00 Ahmed Results Test Description Test Time Test Comments Results Result Comments Source TROPONIN I 2022-08-13 21:44:54 Test Item Value Reference Range Interpretation Comme nts TROPONIN I (test code = 0.003 ng/mL See_Comment [Au tomated message] The [id number]) system which ge nerated this result tra nsmitted reference range : <=0.034. The reference r adamaris was not used to int erpret this result as normal/abnormal . STACI (test code = STACI) Reference (Normal) Range (defined by the 99th percentile reference limit): <= 0.034 ng/mL Note: Cardiac troponin begins to rise 3-4 hours after the onset of ischemia. Repeat in 4-6 hours if the sample was drawn within 3-4 hours of the onset of the symptom and found normal. Diagnosis of myocardial injury is made with acute changes in cTn concentrations with at least one serial sample above the 99th percentile upper reference limit (URL), taken together with the patient's clinical presentation. Biotin has been reported to cause a negative bias, interpret results relative to patient's use of biotin. Lab Interpretation Normal (test code = 76404-7) [facility]. METABOLIC PANEL ([id number])2022-08-13 21:34:31 Test Item Value Reference Range Interpretation Comments NA (test code = 131 mmol/L 135-145 L 5882678367) K (test code = 3.7 mmol/L 3.5-5.0 9007321830) CL (test code = 91 mmol/L 98-108 L 0308702913) CO2 TOTAL (test code = 31 mmol/L 23-31 4434609671) AGAP (test code = 2-16 4505874431) BUN (test code = 12 mg/dL 7-23 5536672999) GLUCOSE (test code = 131 mg/dL 70-110 H 6616439752) CREATININE (test code = 0.68 mg/dL 0.50-1.04 7898484991) TOTAL BILI (test code = 0.8 mg/dL 0.1-1.0 6944159586) CALCIUM (test code = 9.7 mg/dL 8.6-10.6 5387286461) T PROTEIN (test code = 8.0 g/dL 6.3-8.2 7757135247) ALBUMIN (test code = 4.6 g/dL 3.5-5.0 3281301552) ALK PHOS (test code = 100 U/L 34-122 6453341626) ALTv (test code = 31 U/L 5-35 2-6) AST(SGOT) (test code = 38 U/L 13-40 5150653749) eGFR (test code = mL/min/1.73m2 2863950241) STACI (test code = STACI) Association of Glomerular Filtration Rate (GFR) and Staging of Kidney Disease* + --+ --+ ------+| GFR (mL/min/1.73 m2) ?| With Kidney Damage ?| ?Without Kidney Damage+ --------+ --------+ +| ?>90 ?| ?Stage one ?| ? Normal ?+ ---+ ---+ -------+| ?60-89 ?| ?Stage two ?| ? Decreased GFR ? + --+ --+ ------+| ?30-59 ?| ?Stage three ?| ? Stage three ? + --+ --+ ------+| ?15-29 ?| ?Stage four ? | ? Stage four ?+ ---+ ---+ -------+| ?<15 (or dialysis) ? ?| ?Stage five ? | ? Stage five ?+ ---+ ---+ -------+ *Each stage assumes the associated GFR level has been in effect for at least three months. ?Stages 1 to 5, with or without kidney disease, indicate chronic kidney disease. Notes: Determination of stages one and two (with eGFR >59mL/min/1.73 m2) requires estimation of kidney damage for at least three months as defined by structural or functional abnormalities of the kidney, manifested by either:Pathological abnormalities or Markers of kidney damage (including abnormalities in the composition of the blood or urine or abnormalities in imaging tests). Lab Interpretation Abnormal (test code = 33604-8) [facility] 21[facility]34[facility]11 Test Item Value Reference Range Interpretation Comments LIPASE (test code = 2704203929) 192 U/L 0-220 Lab Interpretation (test code = Normal 70942-1) [facility] WITH [id number] 21:30:35 Test Item Value Reference Range Interpretation Comments WBC (test code = See_Comment [Automated 3079-2) message] The sy stem which generated this result transmitted reference range : 4.30 - 11.10 10*3/?L. The reference range was not used to interpret this result as normal/abnormal . RBC (test code = See_Comment [Automated 360-8) message] The sy stem which generated this result transmitted reference range : 3.93 - 5.25 10*6/?L. The reference range was not used to interpret this result as normal/abnormal . HGB (test code = 14.5 g/dL 11.6-15.0 718-7) HCT (test code = 42.4 % 35.7-45.2 4544-3) MCV (test code = 82.7 fL 80.6-95.5 787-2) MCH (test code = 28.3 pg 25.9-32.8 785-6) MCHC (test code = 34.2 g/dL 31.6-35.1 786-4) RDW-SD (test code = 39.8 fL 39.0-49.9 50658-8) RDW-CV (test code = 13.2 % 12.0-15.5 788-0) PLT (test code = See_Comment [Automated 777-3) message] The sy stem which generated this result transmitted reference range : 166 - 358 10*3/ ?L. The reference r adamaris was not used to interpret this result as normal/abnormal . MPV (test code = 11.3 fL 9.5-12.9 54201-9) NRBC/100 WBC (test See_Comment [Automat ed code = 4451193329) message] The system which generated this result transmitted reference range : 0.0 - 10.0 /100 WBCs. The refer ence range was not u sed to interpret th is result as normal/abnormal . NRBC x10^3 (test code See_Comment [Auto mated = 4608892549) message] The s ystem which generated this result transmitted reference range : 10*3/?L. The reference range was not used to interpret this result as normal/abnormal . GRAN MAT (NEUT) % 75.5 % (test code = 770-8) IMM GRAN % (test code 0.20 % = 9096780240) LYMPH % (test code = 17.0 % 736-9) MONO % (test code = 6.7 % 5905-5) EOS % (test code = 0.3 % 713-8) BASO % (test code = 0.3 % 706-2) GRAN MAT x10^3(ANC) 4.54 10*3/uL 1.88-7.09 (test code = 4279670705) IMM GRAN x10^3 (test 0.00-0.06 code = 1204093876) LYMPH x10^3 (test code 1.02 10*3/uL 1.32-3.29 L = 731-0) MONO x10^3 (test code 0.40 10*3/uL 0.33-0.92 = 742-7) EOS x10^3 (test code = 0.03-0.39 L 711-2) BASO x10^3 (test code 0.01-0.07 = 704-7) Lab Interpretation Abnormal (test code = 48749-7) [facility]. METABOLIC PANEL ([id number])2022-08-08 02:55:26 Test Item Value Reference Range Interpretation Comments NA (test code = 134 mmol/L 135-145 L 7061671458) K (test code = 3.7 mmol/L 3.5-5.0 9080245726) CL (test code = 98 mmol/L 98-108 6464127366) CO2 TOTAL (test code = 28 mmol/L 23-31 5367941372) AGAP (test code = 2-16 8932436444) BUN (test code = 10 mg/dL 7-23 3514556148) GLUCOSE (test code = 176 mg/dL 70-110 H 5983116641) CREATININE (test code = 0.66 mg/dL 0.50-1.04 0284772376) TOTAL BILI (test code = 0.6 mg/dL 0.1-1.7 7233536273) CALCIUM (test code = 8.8 mg/dL 8.6-10.6 6864320070) T PROTEIN (test code = 7.1 g/dL 6.3-8.2 7609672397) ALBUMIN (test code = 4.1 g/dL 3.5-5.0 3890109921) ALK PHOS (test code = 90 U/L 34-122 4960661510) ALTv (test code = 26 U/L 5-35 1742-6) AST(SGOT) (test code = 28 U/L 13-40 8224203946) eGFR (test code = mL/min/1.73m2 9010569348) STACI (test code = STACI) Association of Glomerular Filtration Rate (GFR) and Staging of Kidney Disease* + --+ --+ ------+| GFR (mL/min/1.73 m2) ?| With Kidney Damage ?| ?Without Kidney Damage+ --------+ --------+ +| ?>90 ?| ?Stage one ?| ? Normal ?+ ---+ ---+ -------+| ?60-89 ?| ?Stage two ?| ? Decreased GFR ? + --+ --+ ------+| ?30-59 ?| ?Stage three ?| ? Stage three ? + --+ --+ ------+| ?15-29 ?| ?Stage four ? | ? Stage four ?+ ---+ ---+ -------+| ?<15 (or dialysis) ? ?| ?Stage five ? | ? Stage five ?+ ---+ ---+ -------+ *Each stage assumes the associated GFR level has been in effect for at least three months. ?Stages 1 to 5, with or without kidney disease, indicate chronic kidney disease. Notes: Determination of stages one and two (with eGFR >59mL/min/1.73 m2) requires estimation of kidney damage for at least three months as defined by structural or functional abnormalities of the kidney, manifested by either:Pathological abnormalities or Markers of kidney damage (including abnormalities in the composition of the blood or urine or abnormalities in imaging tests). Lab Interpretation Abnormal (test code = 16513-8) [facility] [id number] 02:13:42 Test Item Value Reference Interpretation Comments Range TROPONIN I (test 0.008 ng/mL See_Comment [Automated code = 9413501357) message] The system which generated this result transmitted reference range : <=0.034. The reference range was not used to interpret this result as normal/abnormal . STACI (test code = Reference (Normal) STACI) Range (defined by the 99th percentile reference limit): <= 0.034 ng/mL Note: Cardiac troponin begins to rise 3-4 hours after the onset of ischemia. Repeat in 4-6 hours if the sample was drawn within 3-4 hours of the onset of the symptom and found normal. Diagnosis of myocardial injury is made with acute changes in cTn concentrations with at least one serial sample above the 99th percentile upper reference limit (URL), taken together with the patient's clinical presentation. Biotin has been reported to cause a negative bias, interpret results relative to patient's use of biotin. Lab Interpretation Normal (test code = 22038-6) [facility] [id number] 02:10:43 Test Item Value Reference Range Interpretation Comments NT-proBNP (test code 66 pg/mL See_Comment [Autom ated = 8177629586) message] The system which generated this result transmitted reference range : <=125. The reference range was not used to interpret this result as normal/abnormal . STACI (test code = STACI) Biotin has been reported to cause a negative bias, interpret results relative to patient's use of biotin. Lab Interpretation Normal (test code = 79799-8) [facility] 02:01:44 Test Item Value Reference Range Interpretation Comments LIPASE (test code = 5530239084) 121 U/L 0-220 Lab Interpretation (test code = Normal 81279-2) [facility] THRMPLAS [id number] 02:00:02 Test Item Value Reference Range Interpretation Comments APTT Patient (test See_Comment [Automat ed code = 3173-2) message] The system which generated this result transmitted reference range : 23 - 38 Seconds . The reference range was not used to interpr et this result as normal/abnormal . STACI (test code = STACI) The [facility] patient population mean normal value for aPTT is 30 seconds. Lab Interpretation Normal (test code = 36723-0) [facility] CampusPROTHROMBIN [facility] / [id number] 01:57:58 Test Item Value Reference Range Interpretation Comments PROTIME PATIENT (test See_Comment [Auto mated message] code = 5964-2) The system wh ich generated this result transmitted ref erence range: 12.0 - 1 4.7 Seconds. The re ference range was not u sed to interpret this result as normal/abnor mal. INR (test code = 6301-6) Nor mal INR <1.1; Warfarin Therap eutic range 2.0 to 3. 0 or 2.5 to 3.5, dep ending upon the indica tions. Lab Interpretation (test Normal code = 61065-0) [facility] WITH [id number] 01:40:59 Test Item Value Reference Range Interpretation Comments WBC (test code = See_Comment [Automated 3890-2) message] The sy stem which generated this result transmitted reference range : 4.30 - 11.10 10*3/?L. The reference range was not used to interpret this result as normal/abnormal . RBC (test code = See_Comment [Automated 759-8) message] The sy stem which generated this result transmitted reference range : 3.93 - 5.25 10*6/?L. The reference range was not used to interpret this result as normal/abnormal . HGB (test code = 13.8 g/dL 11.6-15.0 718-7) HCT (test code = 39.8 % 35.7-45.2 4544-3) MCV (test code = 82.6 fL 80.6-95.5 787-2) MCH (test code = 28.6 pg 25.9-32.8 785-6) MCHC (test code = 34.7 g/dL 31.6-35.1 786-4) RDW-SD (test code = 39.4 fL 39.0-49.9 08874-4) RDW-CV (test code = 13.2 % 12.0-15.5 788-0) PLT (test code = See_Comment [Automated 777-3) message] The sy stem which generated this result transmitted reference range : 166 - 358 10*3/ ?L. The reference r adamaris was not used to interpret this result as normal/abnormal . MPV (test code = 11.1 fL 9.5-12.9 27279-6) NRBC/100 WBC (test See_Comment [Automat ed code = 2347832301) message] The system which generated this result transmitted reference range : 0.0 - 10.0 /100 WBCs. The refer ence range was not u sed to interpret th is result as normal/abnormal . NRBC x10^3 (test code See_Comment [Auto mated = 1458700078) message] The s ystem which generated this result transmitted reference range : 10*3/?L. The reference range was not used to interpret this result as normal/abnormal . GRAN MAT (NEUT) % 73.9 % (test code = 770-8) IMM GRAN % (test code 0.30 % = 1520868805) LYMPH % (test code = 17.5 % 736-9) MONO % (test code = 7.4 % 5905-5) EOS % (test code = 0.3 % 713-8) BASO % (test code = 0.6 % 706-2) GRAN MAT x10^3(ANC) 5.34 10*3/uL 1.88-7.09 (test code = 1492119931) IMM GRAN x10^3 (test 0.00-0.06 code = 7175497819) LYMPH x10^3 (test code 1.26 10*3/uL 1.32-3.29 L = 731-0) MONO x10^3 (test code 0.53 10*3/uL 0.33-0.92 = 742-7) EOS x10^3 (test code = 0.03-0.39 L 711-2) BASO x10^3 (test code 0.04 10*3/uL 0.01-0.07 = 704-7) Lab Interpretation Abnormal (test code = 19502-3) [facility]2016-06-28 05:15:00 Test Item Value Reference Range Interpretation Comments Bili Indirect (test 0.9 See_Comment [Automa adele message] The code = Bili Indirect) system which generated this result tra nsmitted reference range : <=1.0. The reference r adamaris was not used to int erpret this result as normal/abnormal . [facility]2016-06-28 05:15:00 Test Item Value Reference Range Interpretation Comments Alk Phos (test code = Alk Phos) 128 39-136 [facility]2016-06-28 05:15:00 Test Item Value Reference Range Interpretation Comments Lipase Lvl (test code = Lipase Lvl) 76 73-393 [facility]2016-06-28 05:15:00 Test Item Value Reference Range Interpretation Comments ALT (test code = ALT) 90 See_Comment [Auto mated message] The system which ge nerated this result transmit adele reference range : <=65. The reference range was not used to interpr et this result as neena l/abnormal. [facility]2016-06-28 05:15:00 Test Item Value Reference Range Interpretation Comments A/G Ratio (test code = A/G Ratio) 0.6 0.7-1.6 [facility]2016-06-28 05:15:00 Test Item Value Reference Range Interpretation Comments ASPARTATE TRANSAMINASE 106 See_Comment [Aut omated message] (test code = ASPARTATE The s ystem which TRANSAMINASE) generated this result transmitted ref erence range: <=37. Th e reference range was not used to interpr et this result as normal/abnormal . [facility]2016-06-28 05:15:00 Test Item Value Reference Range Interpretation Comments Bili Direct (test code 0.1 See_Comment [Aut omated message] The = Bili Direct) system which generated this result tra nsmitted reference range : <=0.3. The reference r adamaris was not used to int erpret this result as neena l/abnormal. [facility]2016-06-28 05:15:00 Test Item Value Reference Range Interpretation Comments Globulin (test code = Globulin) 4.8 2.0-4.0 [facility]2016-06-28 05:15:00 Test Item Value Reference Range Interpretation Comments Albumin Lvl (test code = Albumin Lvl) 3.1 3.5-5.0 [facility]2016-06-28 05:15:00 Test Item Value Reference Range Interpretation Comments Bili Indirect (test 0.9 See_Comment [Automa adele message] The code = Bili Indirect) system which generated this result tra nsmitted reference range : <=1.0. The reference r adamaris was not used to int erpret this result as normal/abnormal . [facility]2016-06-28 05:15:00 Test Item Value Reference Range Interpretation Comments Alk Phos (test code = Alk Phos) 128 39-136 [facility]2016-06-28 05:15:00 Test Item Value Reference Range Interpretation Comments Bili Direct (test code 0.1 See_Comment [Aut omated message] The = Bili Direct) system which generated this result tra nsmitted reference range : <=0.3. The reference r adamaris was not used to int erpret this result as neena l/abnormal. [facility]2016-06-28 05:15:00 Test Item Value Reference Range Interpretation Comments Bili Total (test code = Bili Total) 1.0 0.2-1.3 [facility]2016-06-28 05:15:00 Test Item Value Reference Range Interpretation Comments Total Protein (test code = Total 7.9 6.4-8.4 Protein) [facility]2016-06-28 05:15:00 Test Item Value Reference Range Interpretation Comments Glucose Lvl (test code = Glucose Lvl) 143 70-99 [facility]2016-06-28 05:15:00 Test Item Value Reference Range Interpretation Comments BUN (test code = BUN) 9 7-22 [facility]2016-06-28 05:15:00 Test Item Value Reference Range Interpretation Comments CO2 (test code = CO2) 28 24-32 [facility]2016-06-28 05:15:00 Test Item Value Reference Range Interpretation Comments Bili Total (test code = Bili Total) 1.0 0.2-1.3 [facility]2016-06-28 05:15:00 Test Item Value Reference Range Interpretation Comments Calcium Lvl (test code = Calcium Lvl) 8.3 8.5-10.5 [facility]2016-06-28 05:15:00 Test Item Value Reference Range Interpretation Comments Creatinine Lvl (test code = Creatinine 0.71 0.50-1.40 Lvl) [facility]2016-06-28 05:15:00 Test Item Value Reference Range Interpretation Comments Sodium Lvl (test code = Sodium Lvl) 133 135-145 [facility]2016-06-28 05:15:00 Test Item Value Reference Range Interpretation Comments Potassium Lvl (test code = Potassium 5.1 3.5-5.1 Lvl) [facility]2016-06-28 05:15:00 Test Item Value Reference Range Interpretation Comments Chloride Lvl (test code = Chloride Lvl) 100 95-109 [facility]2016-06-28 05:15:00 Test Item Value Reference Range Interpretation Comments eGFR (test code = eGFR) 89 [facility]2016-06-28 05:15:00 Test Item Value Reference Range Interpretation Comments AGAP (test code = AGAP) 10.1 10.0-20.0 [facility]QgxfqxoQLIUXHYZJH3883-93-98 05:15:00 Test Item Value Reference Range Interpretation Comments Basophils (test code = 0.2 See_Comment [Aut omated message] The Basophils) system which ge nerated this result tra nsmitted reference range : <=1.0. The reference r adamaris was not used to int erpret this result as normal/abnormal . [facility] CenterOvtoenfRFYZCIOERT1460-06-53 05:15:00 Test Item Value Reference Range Interpretation Comments Eosinophils (test code = 0.1 See_Comment [A utomated message] The Eosinophils) system which ge nerated this result tra nsmitted reference range : <=4.0. The reference r adamaris was not used to int erpret this result as normal/abnormal . [facility] CenterMkrrotjBJOAHCPLVX5228-88-22 05:15:00 Test Item Value Reference Range Interpretation Comments Segs-Bands # (test code = Segs-Bands #) 8.3 1.5-8.1 [facility]2016-06-28 05:15:00 Test Item Value Reference Range Interpretation Comments Total Protein (test code = Total 7.9 6.4-8.4 Protein) [facility] CenterDfwynjlAIDKHYAODE7514-72-28 05:15:00 Test Item Value Reference Range Interpretation Comments Lymphocytes # (test code = Lymphocytes 1.2 1.0-5.5 #) [facility] CenterXokmplkRBPVHCJEFG8294-32-10 05:15:00 Test Item Value Reference Range Interpretation Comments Monocytes # (test code 1.0 See_Comment [Aut omated message] The = Monocytes #) system which generated this result tra nsmitted reference range : <=0.8. The reference r adamaris was not used to int erpret this result as normal/abnormal . [facility] CenterPxkqlhbBITLGXUOTH8212-77-06 05:15:00 Test Item Value Reference Range Interpretation Comments Monocytes (test code = Monocytes) 9.7 2.0-12.0 [facility] CenterRbrzycuQYIVIPTKOI0714-49-85 05:15:00 Test Item Value Reference Range Interpretation Comments Lymphocytes (test code = Lymphocytes) 11.1 20.0-40.0 [facility] CenterJvhvxztPRFMSJVEQO1505-33-23 05:15:00 Test Item Value Reference Range Interpretation Comments Segs (test code = Segs) 78.9 45.0-75.0 [facility] CenterTtpjidiSBCCZRCUSB5694-93-72 05:15:00 Test Item Value Reference Range Interpretation Comments MPV (test code = MPV) 9.7 7.4-10.4 [facility] CenterZewbojwTCTOCECZAC5895-85-54 05:15:00 Test Item Value Reference Range Interpretation Comments MCV (test code = MCV) 83.4 80.0-98.0 [facility] CenterUhezcdpLNUNOBHABH1087-47-41 05:15:00 Test Item Value Reference Range Interpretation Comments RDW (test code = RDW) 13.3 11.5-14.5 [facility] CenterEijqvjlTAOERZEGRW5456-89-93 05:15:00 Test Item Value Reference Range Interpretation Comments MCHC (test code = MCHC) 33.6 32.0-36.0 [facility] CenterHcaznwvKPUNDBWVXF6842-15-16 05:15:00 Test Item Value Reference Range Interpretation Comments MCH (test code = MCH) 28.0 pg 27.0-31.0 [facility]2016-06-28 05:15:00 Test Item Value Reference Range Interpretation Comments Glucose Lvl (test code = Glucose Lvl) 143 70-99 [facility] CenterHsysuwjSJJQUIDIVT7873-45-54 05:15:00 Test Item Value Reference Range Interpretation Comments Platelet (test code = Platelet) 262 133-450 [facility] CenterEfesjobLCQQDDPQXR7369-62-77 05:15:00 Test Item Value Reference Range Interpretation Comments WBC (test code = WBC) 10.5 3.7-10.4 [facility] CenterFipwzrqNMXVUDHGKZ9455-76-31 05:15:00 Test Item Value Reference Range Interpretation Comments RBC (test code = RBC) 4.97 4.20-5.40 [facility] CenterNbglveqRADLPRLPXP6206-38-17 05:15:00 Test Item Value Reference Range Interpretation Comments Hgb (test code = Hgb) 13.9 12.0-16.0 [facility] CenterKtihvubHWAYXTKWQK9020-78-08 05:15:00 Test Item Value Reference Range Interpretation Comments Hct (test code = Hct) 41.4 36.0-48.0 [facility]2016-06-28 05:15:00 Test Item Value Reference Range Interpretation Comments BUN (test code = BUN) 9 7-22 [facility]2016-06-28 05:15:00 Test Item Value Reference Range Interpretation Comments CO2 (test code = CO2) 28 24-32 [facility]2016-06-28 05:15:00 Test Item Value Reference Range Interpretation Comments Lipase Lvl (test code = Lipase Lvl) 76 73-393 [facility]2016-06-28 05:15:00 Test Item Value Reference Range Interpretation Comments ALT (test code = ALT) 90 See_Comment [Auto mated message] The system which ge nerated this result transmit adele reference range : <=65. The reference range was not used to interpr et this result as neena l/abnormal. [facility]2016-06-28 05:15:00 Test Item Value Reference Range Interpretation Comments A/G Ratio (test code = A/G Ratio) 0.6 0.7-1.6 [facility]2016-06-28 05:15:00 Test Item Value Reference Range Interpretation Comments ASPARTATE TRANSAMINASE 106 See_Comment [Aut omated message] (test code = ASPARTATE The s ystem which TRANSAMINASE) generated this result transmitted ref erence range: <=37. Th e reference range was not used to interpr et this result as normal/abnormal . [facility]2016-06-28 05:15:00 Test Item Value Reference Range Interpretation Comments Globulin (test code = Globulin) 4.8 2.0-4.0 [facility]2016-06-28 05:15:00 Test Item Value Reference Range Interpretation Comments Albumin Lvl (test code = Albumin Lvl) 3.1 3.5-5.0 [facility]2016-06-28 05:15:00 Test Item Value Reference Range Interpretation Comments Bili Indirect (test 0.9 See_Comment [Automa adele message] The code = Bili Indirect) system which generated this result tra nsmitted reference range : <=1.0. The reference r adamaris was not used to int erpret this result as normal/abnormal . [facility]2016-06-28 05:15:00 Test Item Value Reference Range Interpretation Comments Alk Phos (test code = Alk Phos) 128 39-136 [facility]2016-06-28 05:15:00 Test Item Value Reference Range Interpretation Comments Calcium Lvl (test code = Calcium Lvl) 8.3 8.5-10.5 [facility]2016-06-28 05:15:00 Test Item Value Reference Range Interpretation Comments Bili Direct (test code 0.1 See_Comment [Aut omated message] The = Bili Direct) system which generated this result tra nsmitted reference range : <=0.3. The reference r adamaris was not used to int erpret this result as neena l/abnormal. [facility] AM[facility]BL[facility]12[facility] 05:15:00 Test Item Value Reference Range Interpretation Comments Bili Total (test code = Bili Total) 1.0 0.2-1.3 [facility]2016-06-28 05:15:00 Test Item Value Reference Range Interpretation Comments Total Protein (test code = Total 7.9 6.4-8.4 Protein) [facility]2016-06-28 05:15:00 Test Item Value Reference Range Interpretation Comments Glucose Lvl (test code = Glucose Lvl) 143 70-99 [facility]2016-06-28 05:15:00 Test Item Value Reference Range Interpretation Comments BUN (test code = BUN) 9 7-22 [facility]2016-06-28 05:15:00 Test Item Value Reference Range Interpretation Comments CO2 (test code = CO2) 28 24-32 [facility]2016-06-28 05:15:00 Test Item Value Reference Range Interpretation Comments Calcium Lvl (test code = Calcium Lvl) 8.3 8.5-10.5 [facility]2016-06-28 05:15:00 Test Item Value Reference Range Interpretation Comments Creatinine Lvl (test code = Creatinine 0.71 0.50-1.40 Lvl) [facility]2016-06-28 05:15:00 Test Item Value Reference Range Interpretation Comments Sodium Lvl (test code = Sodium Lvl) 133 135-145 [facility]2016-06-28 05:15:00 Test Item Value Reference Range Interpretation Comments Potassium Lvl (test code = Potassium 5.1 3.5-5.1 Lvl) [facility]2016-06-28 05:15:00 Test Item Value Reference Range Interpretation Comments Creatinine Lvl (test code = Creatinine 0.71 0.50-1.40 Lvl) [facility]2016-06-28 05:15:00 Test Item Value Reference Range Interpretation Comments Chloride Lvl (test code = Chloride Lvl) 100 95-109 [facility]2016-06-28 05:15:00 Test Item Value Reference Range Interpretation Comments eGFR (test code = eGFR) 89 [facility]2016-06-28 05:15:00 Test Item Value Reference Range Interpretation Comments AGAP (test code = AGAP) 10.1 10.0-20.0 [facility] CenterNiswjsfNERCQNDEJF9677-04-43 05:15:00 Test Item Value Reference Range Interpretation Comments Basophils (test code = 0.2 See_Comment [Aut omated message] The Basophils) system which ge nerated this result tra nsmitted reference range : <=1.0. The reference r adamaris was not used to int erpret this result as normal/abnormal . [facility] CenterGyzjnmjCOIQNTIRDC1382-20-06 05:15:00 Test Item Value Reference Range Interpretation Comments Eosinophils (test code = 0.1 See_Comment [A utomated message] The Eosinophils) system which ge nerated this result tra nsmitted reference range : <=4.0. The reference r adamaris was not used to int erpret this result as normal/abnormal . [facility] CenterLihjilvGYLKLZQLID9396-99-65 05:15:00 Test Item Value Reference Range Interpretation Comments Segs-Bands # (test code = Segs-Bands #) 8.3 1.5-8.1 [facility] CenterLowmpcxTFTZHNEKFE2225-20-16 05:15:00 Test Item Value Reference Range Interpretation Comments Lymphocytes # (test code = Lymphocytes 1.2 1.0-5.5 #) [facility] CenterPfswyilXEIVNTXJPP7574-78-66 05:15:00 Test Item Value Reference Range Interpretation Comments Monocytes # (test code 1.0 See_Comment [Aut omated message] The = Monocytes #) system which generated this result tra nsmitted reference range : <=0.8. The reference r adamaris was not used to int erpret this result as normal/abnormal . [facility] CenterEglpjsmIUAYGQGLGT8245-63-90 05:15:00 Test Item Value Reference Range Interpretation Comments Monocytes (test code = Monocytes) 9.7 2.0-12.0 [facility] CenterGlkmkfgNHFCBKTIWB6071-71-83 05:15:00 Test Item Value Reference Range Interpretation Comments Lymphocytes (test code = Lymphocytes) 11.1 20.0-40.0 [facility]2016-06-28 05:15:00 Test Item Value Reference Range Interpretation Comments Sodium Lvl (test code = Sodium Lvl) 133 135-145 [facility] CenterWjwtkpiURZKGXMXLL1953-55-09 05:15:00 Test Item Value Reference Range Interpretation Comments Segs (test code = Segs) 78.9 45.0-75.0 [facility] CenterQuhdbfsKSNMFCXTDU8641-46-98 05:15:00 Test Item Value Reference Range Interpretation Comments MPV (test code = MPV) 9.7 7.4-10.4 [facility] CenterAbxcxzcDBVARKOOHW7460-53-80 05:15:00 Test Item Value Reference Range Interpretation Comments MCV (test code = MCV) 83.4 80.0-98.0 [facility] CenterYtisozpHOTSUZSZTR0817-70-92 05:15:00 Test Item Value Reference Range Interpretation Comments RDW (test code = RDW) 13.3 11.5-14.5 [facility] CenterZwispdqWLBUKOFKFF2666-63-83 05:15:00 Test Item Value Reference Range Interpretation Comments MCHC (test code = MCHC) 33.6 32.0-36.0 [facility] CenterWxjhbdcDPYKPEPWQL7707-07-99 05:15:00 Test Item Value Reference Range Interpretation Comments MCH (test code = MCH) 28.0 pg 27.0-31.0 [facility] CenterRrhbzhtRMDUPPAMEH4809-95-98 05:15:00 Test Item Value Reference Range Interpretation Comments Platelet (test code = Platelet) 262 133-450 [facility] CenterNaeybdeDPHSODUTPT9800-08-16 05:15:00 Test Item Value Reference Range Interpretation Comments WBC (test code = WBC) 10.5 3.7-10.4 [facility] CenterMnbfnxzTKHUCFEURC3690-48-85 05:15:00 Test Item Value Reference Range Interpretation Comments RBC (test code = RBC) 4.97 4.20-5.40 [facility] CenterEewvuthDHIJNLTFTD0149-45-59 05:15:00 Test Item Value Reference Range Interpretation Comments Hgb (test code = Hgb) 13.9 12.0-16.0 [facility]2016-06-28 05:15:00 Test Item Value Reference Range Interpretation Comments Potassium Lvl (test code = Potassium 5.1 3.5-5.1 Lvl) [facility] CenterRnakvewYHWQUYWJNI2744-46-72 05:15:00 Test Item Value Reference Range Interpretation Comments Hct (test code = Hct) 41.4 36.0-48.0 [facility]2016-06-28 05:15:00 Test Item Value Reference Range Interpretation Comments Chloride Lvl (test code = Chloride Lvl) 100 95-109 [facility]2016-06-28 05:15:00 Test Item Value Reference Range Interpretation Comments eGFR (test code = eGFR) 89 [facility]2016-06-28 05:15:00 Test Item Value Reference Range Interpretation Comments AGAP (test code = AGAP) 10.1 10.0-20.0 [facility] CenterQokqukyYMPQGWPUBK9862-68-09 05:15:00 Test Item Value Reference Range Interpretation Comments Basophils (test code = 0.2 See_Comment [Aut omated message] The Basophils) system which ge nerated this result tra nsmitted reference range : <=1.0. The reference r adamaris was not used to int erpret this result as normal/abnormal . [facility] CenterXunlrjySDHGUFKNJR7177-92-17 05:15:00 Test Item Value Reference Range Interpretation Comments Eosinophils (test code = 0.1 See_Comment [A utomated message] The Eosinophils) system which ge nerated this result tra nsmitted reference range : <=4.0. The reference r adamaris was not used to int erpret this result as normal/abnormal . [facility] CenterKuoumreVQPVJEPCUE6482-95-05 05:15:00 Test Item Value Reference Range Interpretation Comments Segs-Bands # (test code = Segs-Bands #) 8.3 1.5-8.1 [facility] CenterHswtctxJQKVZFXIPM5927-64-59 05:15:00 Test Item Value Reference Range Interpretation Comments Lymphocytes # (test code = Lymphocytes 1.2 1.0-5.5 #) [facility] CenterHqcjjezRFCEELRKOX3450-94-17 05:15:00 Test Item Value Reference Range Interpretation Comments Monocytes # (test code 1.0 See_Comment [Aut omated message] The = Monocytes #) system which generated this result tra nsmitted reference range : <=0.8. The reference r adamaris was not used to int erpret this result as normal/abnormal . [facility] CenterPmimdoxPRPGTJCWWZ4552-01-45 05:15:00 Test Item Value Reference Range Interpretation Comments Monocytes (test code = Monocytes) 9.7 2.0-12.0 [facility] CenterFflmycjZOLZQNVABJ6850-42-88 05:15:00 Test Item Value Reference Range Interpretation Comments Lymphocytes (test code = Lymphocytes) 11.1 20.0-40.0 [facility] CenterMfklwgoAGKXSWFDTA0018-09-32 05:15:00 Test Item Value Reference Range Interpretation Comments Segs (test code = Segs) 78.9 45.0-75.0 [facility] CenterWoscjmlIKVHZGKKOD7143-02-12 05:15:00 Test Item Value Reference Range Interpretation Comments MPV (test code = MPV) 9.7 7.4-10.4 [facility] CenterEgtbqrhAJQTZSEWRY1722-76-30 05:15:00 Test Item Value Reference Range Interpretation Comments MCV (test code = MCV) 83.4 80.0-98.0 [facility] CenterHihokigXAUQMRZRYS8440-13-66 05:15:00 Test Item Value Reference Range Interpretation Comments RDW (test code = RDW) 13.3 11.5-14.5 [facility] CenterKtjidegRKRCFLCOTI5793-70-67 05:15:00 Test Item Value Reference Range Interpretation Comments MCHC (test code = MCHC) 33.6 32.0-36.0 [facility] CenterGwixykgYCICLFNWTN0643-05-99 05:15:00 Test Item Value Reference Range Interpretation Comments MCH (test code = MCH) 28.0 pg 27.0-31.0 [facility] CenterVrtjeyoOCHNJKWJDB0881-89-83 05:15:00 Test Item Value Reference Range Interpretation Comments Platelet (test code = Platelet) 262 133-450 [facility] CenterZedxyupQKHTWYSTVQ6391-85-61 05:15:00 Test Item Value Reference Range Interpretation Comments WBC (test code = WBC) 10.5 3.7-10.4 [facility] PASRU7236-99-94 05:15:00 Test Item Value Reference Range Interpretation Comments Lipase Lvl (test code = Lipase Lvl) 76 73-393 [facility] CenterNtdtuoeRIRRBKBVUG4731-92-01 05:15:00 Test Item Value Reference Range Interpretation Comments RBC (test code = RBC) 4.97 4.20-5.40 [facility] CenterUykahjrHVUZWCWNBO3994-71-26 05:15:00 Test Item Value Reference Range Interpretation Comments Hgb (test code = Hgb) 13.9 12.0-16.0 [facility] CenterKwnfholFDLFLQRXKT8510-43-51 05:15:00 Test Item Value Reference Range Interpretation Comments Hct (test code = Hct) 41.4 36.0-48.0 [facility] USFVM3814-55-25 05:15:00 Test Item Value Reference Range Interpretation Comments ALT (test code = ALT) 90 See_Comment [Auto mated message] The system which ge nerated this result transmit adele reference range : <=65. The reference range was not used to interpr et this result as neena l/abnormal. [facility]2016-06-28 05:15:00 Test Item Value Reference Range Interpretation Comments A/G Ratio (test code = A/G Ratio) 0.6 0.7-1.6 [facility]2016-06-28 05:15:00 Test Item Value Reference Range Interpretation Comments Lipase Lvl (test code = Lipase Lvl) 76 73-393 [facility]2016-06-28 05:15:00 Test Item Value Reference Range Interpretation Comments ALT (test code = ALT) 90 See_Comment [Auto mated message] The system which ge nerated this result transmit adele reference range : <=65. The reference range was not used to interpr et this result as neena l/abnormal. [place]236-06-28 05:15:00 Test Item Value Reference Range Interpretation Comments A/G Ratio (test code = A/G Ratio) 0.6 0.7-1.6 [facility]2016-06-28 05:15:00 Test Item Value Reference Range Interpretation Comments ASPARTATE TRANSAMINASE 106 See_Comment [Aut omated message] (test code = ASPARTATE The s ystem which TRANSAMINASE) generated this result transmitted ref erence range: <=37. Th e reference range was not used to interpr et this result as normal/abnormal . [facility]2016-06-28 05:15:00 Test Item Value Reference Range Interpretation Comments Globulin (test code = Globulin) 4.8 2.0-4.0 [place] 606236-06-28 05:15:00 Test Item Value Reference Range Interpretation Comments Albumin Lvl (test code = Albumin Lvl) 3.1 3.5-5.0 [place] 606236-06-28 05:15:00 Test Item Value Reference Range Interpretation Comments Bili Indirect (test 0.9 See_Comment [Automa adele message] The code = Bili Indirect) system which generated this result tra nsmitted reference range : <=1.0. The reference r adamaris was not used to int erpret this result as normal/abnormal . [facility]2016-06-28 05:15:00 Test Item Value Reference Range Interpretation Comments Alk Phos (test code = Alk Phos) 128 39-136 [facility]2016-06-28 05:15:00 Test Item Value Reference Range Interpretation Comments Bili Direct (test code 0.1 See_Comment [Aut omated message] The = Bili Direct) system which generated this result tra nsmitted reference range : <=0.3. The reference r adamaris was not used to int erpret this result as neena l/abnormal. [facility]2016-06-28 05:15:00 Test Item Value Reference Range Interpretation Comments Bili Total (test code = Bili Total) 1.0 0.2-1.3 [facility]2016-06-28 05:15:00 Test Item Value Reference Range Interpretation Comments ASPARTATE TRANSAMINASE 106 See_Comment [Aut omated message] (test code = ASPARTATE The s ystem which TRANSAMINASE) generated this result transmitted ref erence range: <=37. Th e reference range was not used to interpr et this result as normal/abnormal . [facility]2016-06-28 05:15:00 Test Item Value Reference Range Interpretation Comments Total Protein (test code = Total 7.9 6.4-8.4 Protein) [facility]2016-06-28 05:15:00 Test Item Value Reference Range Interpretation Comments Glucose Lvl (test code = Glucose Lvl) 143 70-99 [facility]2016-06-28 05:15:00 Test Item Value Reference Range Interpretation Comments BUN (test code = BUN) 9 7-22 [facility]2016-06-28 05:15:00 Test Item Value Reference Range Interpretation Comments CO2 (test code = CO2) 28 24-32 [facility]2016-06-28 05:15:00 Test Item Value Reference Range Interpretation Comments Calcium Lvl (test code = Calcium Lvl) 8.3 8.5-10.5 [facility]2016-06-28 05:15:00 Test Item Value Reference Range Interpretation Comments Creatinine Lvl (test code = Creatinine 0.71 0.50-1.40 Lvl) [facility]2016-06-28 05:15:00 Test Item Value Reference Range Interpretation Comments Sodium Lvl (test code = Sodium Lvl) 133 135-145 [place] 606236-06-28 05:15:00 Test Item Value Reference Range Interpretation Comments Potassium Lvl (test code = Potassium 5.1 3.5-5.1 Lvl) [facility]2016-06-28 05:15:00 Test Item Value Reference Range Interpretation Comments Chloride Lvl (test code = Chloride Lvl) 100 95-109 [facility]2016-06-28 05:15:00 Test Item Value Reference Range Interpretation Comments eGFR (test code = eGFR) 89 [facility]2016-06-28 05:15:00 Test Item Value Reference Range Interpretation Comments Globulin (test code = Globulin) 4.8 2.0-4.0 [facility]2016-06-28 05:15:00 Test Item Value Reference Range Interpretation Comments AGAP (test code = AGAP) 10.1 10.0-20.0 [facility] CenterHlbraczBKPPTCZKKU8788-33-46 05:15:00 Test Item Value Reference Range Interpretation Comments Basophils (test code = 0.2 See_Comment [Aut omated message] The Basophils) system which ge nerated this result tra nsmitted reference range : <=1.0. The reference r adamaris was not used to int erpret this result as normal/abnormal . [facility]2016-06-28 05:15:00 Test Item Value Reference Range Interpretation Comments Lipase Lvl (test code = Lipase Lvl) 76 73-393 [facility]2016-06-28 05:15:00 Test Item Value Reference Range Interpretation Comments ALT (test code = ALT) 90 See_Comment [Auto mated message] The system which ge nerated this result transmit adele reference range : <=65. The reference range was not used to interpr et this result as neena l/abnormal. [facility]2016-06-28 05:15:00 Test Item Value Reference Range Interpretation Comments A/G Ratio (test code = A/G Ratio) 0.6 0.7-1.6 [facility]2016-06-28 05:15:00 Test Item Value Reference Range Interpretation Comments ASPARTATE TRANSAMINASE 106 See_Comment [Aut omated message] (test code = ASPARTATE The s ystem which TRANSAMINASE) generated this result transmitted ref erence range: <=37. Th e reference range was not used to interpr et this result as normal/abnormal . [facility]2016-06-28 05:15:00 Test Item Value Reference Range Interpretation Comments Globulin (test code = Globulin) 4.8 2.0-4.0 [facility]2016-06-28 05:15:00 Test Item Value Reference Range Interpretation Comments Albumin Lvl (test code = Albumin Lvl) 3.1 3.5-5.0 [place] 606236-06-28 05:15:00 Test Item Value Reference Range Interpretation Comments Bili Indirect (test 0.9 See_Comment [Automa adele message] The code = Bili Indirect) system which generated this result tra nsmitted reference range : <=1.0. The reference r adamaris was not used to int erpret this result as normal/abnormal . [facility]2016-06-28 05:15:00 Test Item Value Reference Range Interpretation Comments Alk Phos (test code = Alk Phos) 128 39-136 [facility]2016-06-28 05:15:00 Test Item Value Reference Range Interpretation Comments Bili Direct (test code 0.1 See_Comment [Aut omated message] The = Bili Direct) system which generated this result tra nsmitted reference range : <=0.3. The reference r adamaris was not used to int erpret this result as neena l/abnormal. [facility] CenterOedqmytTSTQOEXTRA5453-15-86 05:15:00 Test Item Value Reference Range Interpretation Comments Eosinophils (test code = 0.1 See_Comment [A utomated message] The Eosinophils) system which ge nerated this result tra nsmitted reference range : <=4.0. The reference r adamaris was not used to int erpret this result as normal/abnormal . [facility]2016-06-28 05:15:00 Test Item Value Reference Range Interpretation Comments Bili Total (test code = Bili Total) 1.0 0.2-1.3 [facility]2016-06-28 05:15:00 Test Item Value Reference Range Interpretation Comments Total Protein (test code = Total 7.9 6.4-8.4 Protein) [facility]2016-06-28 05:15:00 Test Item Value Reference Range Interpretation Comments Glucose Lvl (test code = Glucose Lvl) 143 70-99 [facility]2016-06-28 05:15:00 Test Item Value Reference Range Interpretation Comments BUN (test code = BUN) 9 7-22 [facility]2016-06-28 05:15:00 Test Item Value Reference Range Interpretation Comments CO2 (test code = CO2) 28 24-32 [facility]2016-06-28 05:15:00 Test Item Value Reference Range Interpretation Comments Calcium Lvl (test code = Calcium Lvl) 8.3 8.5-10.5 [facility]2016-06-28 05:15:00 Test Item Value Reference Range Interpretation Comments Creatinine Lvl (test code = Creatinine 0.71 0.50-1.40 Lvl) [facility]2016-06-28 05:15:00 Test Item Value Reference Range Interpretation Comments Sodium Lvl (test code = Sodium Lvl) 133 135-145 [facility]2016-06-28 05:15:00 Test Item Value Reference Range Interpretation Comments Potassium Lvl (test code = Potassium 5.1 3.5-5.1 Lvl) [facility]2016-06-28 05:15:00 Test Item Value Reference Range Interpretation Comments Chloride Lvl (test code = Chloride Lvl) 100 95-109 [facility]gMSRHJVOGUO4652-[facility]-52 05:15:00 Test Item Value Reference Range Interpretation Comments Segs-Bands # (test code = Segs-Bands #) 8.3 1.5-8.1 [facility]2016-06-28 05:15:00 Test Item Value Reference Range Interpretation Comments eGFR (test code = eGFR) 89 [facility]2016-06-28 05:15:00 Test Item Value Reference Range Interpretation Comments AGAP (test code = AGAP) 10.1 10.0-20.0 [facility]JrcnttiCZARIEEWGM1520-07-21 05:15:00 Test Item Value Reference Range Interpretation Comments Basophils (test code = 0.2 See_Comment [Aut omated message] The Basophils) system which ge nerated this result tra nsmitted reference range : <=1.0. The reference r adamaris was not used to int erpret this result as normal/abnormal . [facility] CenterJlatuefUBXMOMXKQQ4829-16-14 05:15:00 Test Item Value Reference Range Interpretation Comments Eosinophils (test code = 0.1 See_Comment [A utomated message] The Eosinophils) system which ge nerated this result tra nsmitted reference range : <=4.0. The reference r adamaris was not used to int erpret this result as normal/abnormal . [facility] CenterFvtysgkWKKBUMKIKZ3786-69-62 05:15:00 Test Item Value Reference Range Interpretation Comments Segs-Bands # (test code = Segs-Bands #) 8.3 1.5-8.1 [facility] CenterAtmqtxhHDEUTZOTLM0939-92-81 05:15:00 Test Item Value Reference Range Interpretation Comments Lymphocytes # (test code = Lymphocytes 1.2 1.0-5.5 #) [facility] CenterLfkotpcLMRSONKRGX4169-04-23 05:15:00 Test Item Value Reference Range Interpretation Comments Monocytes # (test code 1.0 See_Comment [Aut omated message] The = Monocytes #) system which generated this result tra nsmitted reference range : <=0.8. The reference r adamaris was not used to int erpret this result as normal/abnormal . [facility] CenterKpoxwuyOCHMSTKWYU8941-86-00 05:15:00 Test Item Value Reference Range Interpretation Comments Monocytes (test code = Monocytes) 9.7 2.0-12.0 [facility] CenterIsllswpJZSPHMZHIE9546-87-63 05:15:00 Test Item Value Reference Range Interpretation Comments Lymphocytes (test code = Lymphocytes) 11.1 20.0-40.0 [facility] CenterBbnwbknMGPMKCRRUX3599-26-29 05:15:00 Test Item Value Reference Range Interpretation Comments Segs (test code = Segs) 78.9 45.0-75.0 [facility] CenterNeybatfXHGPDEEDEU1664-80-91 05:15:00 Test Item Value Reference Range Interpretation Comments Lymphocytes # (test code = Lymphocytes 1.2 1.0-5.5 #) [facility] CenterFdwyrrqUCTIRDJBHM0480-26-79 05:15:00 Test Item Value Reference Range Interpretation Comments MPV (test code = MPV) 9.7 7.4-10.4 [facility] CenterNwltimlSTUQMPPJOA0210-55-39 05:15:00 Test Item Value Reference Range Interpretation Comments MCV (test code = MCV) 83.4 80.0-98.0 [facility] CenterRkurptkXNQWCVEYDX1746-77-09 05:15:00 Test Item Value Reference Range Interpretation Comments RDW (test code = RDW) 13.3 11.5-14.5 [facility] CenterOyllbqiIPHGKFNKXG9788-54-24 05:15:00 Test Item Value Reference Range Interpretation Comments MCHC (test code = MCHC) 33.6 32.0-36.0 [facility] CenterDgddyjhAAYXGVXIXM1110-66-28 05:15:00 Test Item Value Reference Range Interpretation Comments MCH (test code = MCH) 28.0 pg 27.0-31.0 [facility] CenterDxshhbdQATPOGQASE2818-36-62 05:15:00 Test Item Value Reference Range Interpretation Comments Platelet (test code = Platelet) 262 133-450 [facility] CenterTktijueWLAQLIDRYW3756-50-73 05:15:00 Test Item Value Reference Range Interpretation Comments WBC (test code = WBC) 10.5 3.7-10.4 [facility] CenterQwisdktLMWSCQCKHS6024-23-34 05:15:00 Test Item Value Reference Range Interpretation Comments RBC (test code = RBC) 4.97 4.20-5.40 [facility] CenterKafvamgBCGUCWERGU2880-31-01 05:15:00 Test Item Value Reference Range Interpretation Comments Hgb (test code = Hgb) 13.9 12.0-16.0 [facility] CenterKkwbicmAGFHRDOPJM4887-69-15 05:15:00 Test Item Value Reference Range Interpretation Comments Hct (test code = Hct) 41.4 36.0-48.0 [facility] CenterFjqkhsjGMOWNFFWIT0484-04-32 05:15:00 Test Item Value Reference Range Interpretation Comments Monocytes # (test code 1.0 See_Comment [Aut omated message] The = Monocytes #) system which generated this result tra nsmitted reference range : <=0.8. The reference r adamaris was not used to int erpret this result as normal/abnormal . [facility] CenterRisapbxYPLYYRVUFQ7881-15-50 05:15:00 Test Item Value Reference Range Interpretation Comments Monocytes (test code = Monocytes) 9.7 2.0-12.0 [facility] CenterXiwgraiNCDKYPCOKS2875-79-56 05:15:00 Test Item Value Reference Range Interpretation Comments Lymphocytes (test code = Lymphocytes) 11.1 20.0-40.0 [facility] CenterZpyxkfpJYJGPBVROA2380-17-19 05:15:00 Test Item Value Reference Range Interpretation Comments Segs (test code = Segs) 78.9 45.0-75.0 [facility]CfbxuxcPURZRJGBEN5044-99-80 05:15:00 Test Item Value Reference Range Interpretation Comments MPV (test code = MPV) 9.7 7.4-10.4 [facility] HospitalCHEM [id number] 05:15:00 Test Item Value Reference Range Interpretation Comments Albumin Lvl (test code = Albumin Lvl) 3.1 3.5-5.0 [facility] HospitalKlrhbrpIJVRVLEFHF6081-44-94 05:15:00 Test Item Value Reference Range Interpretation Comments MCV (test code = MCV) 83.4 80.0-98.0 [facility] HospitalQtpcenuSMZJHMQWPB9931-04-16 05:15:00 Test Item Value Reference Range Interpretation Comments RDW (test code = RDW) 13.3 11.5-14.5 [facility] HospitalSmncsyxMVWXBCNJBD1361-28-92 05:15:00 Test Item Value Reference Range Interpretation Comments MCHC (test code = MCHC) 33.6 32.0-36.0 [facility] HospitalXqrrvlhCDCZHZBMMN7414-40-87 05:15:00 Test Item Value Reference Range Interpretation Comments MCH (test code = MCH) 28.0 pg 27.0-31.0 [facility] HospitalLjuphjmMOANXSITLL3105-24-43 05:15:00 Test Item Value Reference Range Interpretation Comments Platelet (test code = Platelet) 262 133-450 [facility] HospitalMworxdiKHSHZTBRKF1202-46-24 05:15:00 Test Item Value Reference Range Interpretation Comments WBC (test code = WBC) 10.5 3.7-10.4 [facility] HospitalEtcbinkTNGYAWBUUF9085-17-49 05:15:00 Test Item Value Reference Range Interpretation Comments RBC (test code = RBC) 4.97 4.20-5.40 [facility] HospitalCrjxlfxRXHSWATJTD2171-29-46 05:15:00 Test Item Value Reference Range Interpretation Comments Hgb (test code = Hgb) 13.9 12.0-16.0 [facility] HospitalKlerhbmAUAFERERHA6612-34-69 05:15:00 Test Item Value Reference Range Interpretation Comments Hct (test code = Hct) 41.4 36.0-48.0 [facility] AND [id number] 02:00:00 Test Item Value Reference Range Interpretation Comments UA Urobilinogen (test code = UA 4.0 0.1-1.0 Urobilinogen) [facility] AND [id number] 02:00:00 Test Item Value Reference Range Interpretation Comments UA Nitrite (test code Positive *ABN*(03/20/16 = UA Nitrite) 9:00 PM) [facility] AND [id number] 02:00:00 Test Item Value Reference Range Interpretation Comments UA Bili (test code = Small *ABN*(03/20/16 UA Bili) 9:00 PM) [facility] AND [id number] 02:00:00 Test Item Value Reference Range Interpretation Comments UA Blood (test code = Trace *ABN*(03/20/16 UA Blood) 9:00 PM) [facility] AND [id number] 02:00:00 Test Item Value Reference Range Interpretation Comments UA Leuk Est (test code Trace *ABN*(03/20/16 = UA Leuk Est) 9:00 PM) [facility] AND [id number] 02:00:00 Test Item Value Reference Range Interpretation Comments UA Glucose (test code Negative (03/20/16 9:00 = UA Glucose) PM) [facility] AND [id number] 02:00:00 Test Item Value Reference Range Interpretation Comments UA pH (test code = UA pH) 6.0 1 5.0-8.0 [facility] AND [id number] 02:00:00 Test Item Value Reference Range Interpretation Comments UA Protein (test code = Trace *ABN*(03/20/16 UA Protein) 9:00 PM) [facility] AND [id number] 02:00:00 Test Item Value Reference Range Interpretation Comments UA Ketones (test code Negative *NA*(03/20/16 = UA Ketones) 9:00 PM) [facility] AND [id number] 02:00:00 Test Item Value Reference Range Interpretation Comments UA Spec Grav (test code = UA Spec 1.025 1 Grav) [facility] AND [id number] 02:00:00 Test Item Value Reference Range Interpretation Comments UA Turbidity (test code Slight Cloudy = UA Turbidity) (03/20/16 9:00 PM) [facility] AND [id number] 02:00:00 Test Item Value Reference Range Interpretation Comments UA WBC (test code = UA WBC) 3-5 /HPF [facility] [id number] 02:00:00 Test Item Value Reference Range Interpretation Comments UA Sq Epi (test code = UA Sq Epi) Rare /LPF [facility] [id number] 02:00:00 Test Item Value Reference Range Interpretation Comments UA Mucus (test code = UA Mucus) Few /LPF [facility] [id number] 02:00:00 Test Item Value Reference Range Interpretation Comments UA Bacteria (test code = UA Occasional /HPF Bacteria) [facility] AND [id number] 02:00:00 Test Item Value Reference Range Interpretation Comments UA RBC (test None Seen See_Comment [Automated mes micaela] code = UA RBC) (03/20/16 9:00 The system w hich PM) generated this result transmitted ref erence range: <=2. The reference range was not used to int erpret this result as normal/abnormal . [facility] AND [id number] 02:00:00 Test Item Value Reference Range Interpretation Comments UA Color (test code = Marge *ABN*(03/20/16 UA Color) 9:00 PM) [facility] AND [id number] 02:00:00 Test Item Value Reference Range Interpretation Comments UA Urobilinogen (test code = UA 4.0 0.1-1.0 Urobilinogen) [facility] AND [id number] 02:00:00 Test Item Value Reference Range Interpretation Comments UA Nitrite (test code Positive *ABN*(03/20/16 = UA Nitrite) 9:00 PM) [facility] AND [id number] 02:00:00 Test Item Value Reference Range Interpretation Comments UA Bili (test code = Small *ABN*(03/20/16 UA Bili) 9:00 PM) [facility] AND [id number] 02:00:00 Test Item Value Reference Range Interpretation Comments UA Blood (test code = Trace *ABN*(03/20/16 UA Blood) 9:00 PM) [facility] AND [id number] 02:00:00 Test Item Value Reference Range Interpretation Comments UA Leuk Est (test code Trace *ABN*(03/20/16 = UA Leuk Est) 9:00 PM) [facility] AND [id number] 02:00:00 Test Item Value Reference Range Interpretation Comments UA Glucose (test code Negative (03/20/16 9:00 = UA Glucose) PM) [facility] AND [id number] 02:00:00 Test Item Value Reference Range Interpretation Comments UA pH (test code = UA pH) 6.0 1 5.0-8.0 [facility] AND [id number] 02:00:00 Test Item Value Reference Range Interpretation Comments UA Protein (test code = Trace *ABN*(03/20/16 UA Protein) 9:00 PM) [facility] AND [id number] 02:00:00 Test Item Value Reference Range Interpretation Comments UA Ketones (test code Negative *NA*(03/20/16 = UA Ketones) 9:00 PM) [facility] AND [id number] 02:00:00 Test Item Value Reference Range Interpretation Comments UA Spec Grav (test code = UA Spec 1.025 1 Grav) [facility] AND [id number] 02:00:00 Test Item Value Reference Range Interpretation Comments UA Turbidity (test code Slight Cloudy = UA Turbidity) (03/20/16 9:00 PM) [facility] AND [id number] 02:00:00 Test Item Value Reference Range Interpretation Comments UA WBC (test code = UA WBC) 3-5 /HPF [facility] AND [id number] 02:00:00 Test Item Value Reference Range Interpretation Comments UA Sq Epi (test code = UA Sq Epi) Rare /LPF [facility] AND [id number] 02:00:00 Test Item Value Reference Range Interpretation Comments UA Mucus (test code = UA Mucus) Few /LPF [facility] AND [id number] 02:00:00 Test Item Value Reference Range Interpretation Comments UA Bacteria (test code = UA Occasional /HPF Bacteria) [facility] AND [id number] 02:00:00 Test Item Value Reference Range Interpretation Comments UA RBC (test None Seen See_Comment [Automated mes micaela] code = UA RBC) (03/20/16 9:00 The system w hich PM) generated this result transmitted ref erence range: <=2. The reference range was not used to int erpret this result as normal/abnormal . [facility] AND [id number] 02:00:00 Test Item Value Reference Range Interpretation Comments UA Color (test code = Marge *ABN*(03/20/16 UA Color) 9:00 PM) [facility] AND [id number] 02:00:00 Test Item Value Reference Range Interpretation Comments UA Urobilinogen (test code = UA 4.0 0.1-1.0 Urobilinogen) [facility] AND [id number] 02:00:00 Test Item Value Reference Range Interpretation Comments UA Nitrite (test code Positive *ABN*(03/20/16 = UA Nitrite) 9:00 PM) [facility] AND [id number] 02:00:00 Test Item Value Reference Range Interpretation Comments UA Bili (test code = Small *ABN*(03/20/16 UA Bili) 9:00 PM) [facility] AND [id number] 02:00:00 Test Item Value Reference Range Interpretation Comments UA Blood (test code = Trace *ABN*(03/20/16 UA Blood) 9:00 PM) [facility] AND [id number] 02:00:00 Test Item Value Reference Range Interpretation Comments UA Leuk Est (test code Trace *ABN*(03/20/16 = UA Leuk Est) 9:00 PM) [facility] AND [id number] 02:00:00 Test Item Value Reference Range Interpretation Comments UA Glucose (test code Negative (03/20/16 9:00 = UA Glucose) PM) [facility] AND [id number] 02:00:00 Test Item Value Reference Range Interpretation Comments UA pH (test code = UA pH) 6.0 1 5.0-8.0 [facility] AND [id number] 02:00:00 Test Item Value Reference Range Interpretation Comments UA Protein (test code = Trace *ABN*(03/20/16 UA Protein) 9:00 PM) [facility] AND [id number] 02:00:00 Test Item Value Reference Range Interpretation Comments UA Ketones (test code Negative *NA*(03/20/16 = UA Ketones) 9:00 PM) [facility] AND [id number] 02:00:00 Test Item Value Reference Range Interpretation Comments UA Spec Grav (test code = UA Spec 1.025 1 Grav) [facility] AND [id number] 02:00:00 Test Item Value Reference Range Interpretation Comments UA Turbidity (test code Slight Cloudy = UA Turbidity) (03/20/16 9:00 PM) [facility] AND [id number] 02:00:00 Test Item Value Reference Range Interpretation Comments UA WBC (test code = UA WBC) 3-5 /HPF [facility] AND [id number] 02:00:00 Test Item Value Reference Range Interpretation Comments UA Sq Epi (test code = UA Sq Epi) Rare /LPF [facility] AND [id number] 02:00:00 Test Item Value Reference Range Interpretation Comments UA Mucus (test code = UA Mucus) Few /LPF [facility] AND [id number] 02:00:00 Test Item Value Reference Range Interpretation Comments UA Bacteria (test code = UA Occasional /HPF Bacteria) [facility] AND [id number] 02:00:00 Test Item Value Reference Range Interpretation Comments UA RBC (test None Seen See_Comment [Automated mes micaela] code = UA RBC) (03/20/16 9:00 The system w hich PM) generated this result transmitted ref erence range: <=2. The reference range was not used to int erpret this result as normal/abnormal . [facility] AND [id number] 02:00:00 Test Item Value Reference Range Interpretation Comments UA Color (test code = Marge *ABN*(03/20/16 UA Color) 9:00 PM) [facility] AND [id number] 02:00:00 Test Item Value Reference Range Interpretation Comments UA Urobilinogen (test code = UA 4.0 0.1-1.0 Urobilinogen) [facility] AND [id number] 02:00:00 Test Item Value Reference Range Interpretation Comments UA Nitrite (test code Positive *ABN*(03/20/16 = UA Nitrite) 9:00 PM) [facility] AND [id number] 02:00:00 Test Item Value Reference Range Interpretation Comments UA Bili (test code = Small *ABN*(03/20/16 UA Bili) 9:00 PM) [facility] AND [id number] 02:00:00 Test Item Value Reference Range Interpretation Comments UA Blood (test code = Trace *ABN*(03/20/16 UA Blood) 9:00 PM) [facility] AND [id number] 02:00:00 Test Item Value Reference Range Interpretation Comments UA Leuk Est (test code Trace *ABN*(03/20/16 = UA Leuk Est) 9:00 PM) [facility] AND [id number] 02:00:00 Test Item Value Reference Range Interpretation Comments UA Glucose (test code Negative (03/20/16 9:00 = UA Glucose) PM) [facility] AND [id number] 02:00:00 Test Item Value Reference Range Interpretation Comments UA pH (test code = UA pH) 6.0 1 5.0-8.0 [facility] AND [id number] 02:00:00 Test Item Value Reference Range Interpretation Comments UA Protein (test code = Trace *ABN*(03/20/16 UA Protein) 9:00 PM) [facility] AND [id number] 02:00:00 Test Item Value Reference Range Interpretation Comments UA Ketones (test code Negative *NA*(03/20/16 = UA Ketones) 9:00 PM) [facility] AND [id number] 02:00:00 Test Item Value Reference Range Interpretation Comments UA Spec Grav (test code = UA Spec 1.025 1 Grav) [facility] AND [id number] 02:00:00 Test Item Value Reference Range Interpretation Comments UA Turbidity (test code Slight Cloudy = UA Turbidity) (03/20/16 9:00 PM) [facility] AND [id number] 02:00:00 Test Item Value Reference Range Interpretation Comments UA WBC (test code = UA WBC) 3-5 /HPF [facility] AND [id number] 02:00:00 Test Item Value Reference Range Interpretation Comments UA Sq Epi (test code = UA Sq Epi) Rare /LPF [facility] AND [id number] 02:00:00 Test Item Value Reference Range Interpretation Comments UA Mucus (test code = UA Mucus) Few /LPF [facility] AND [id number] 02:00:00 Test Item Value Reference Range Interpretation Comments UA Bacteria (test code = UA Occasional /HPF Bacteria) [facility] AND [id number] 02:00:00 Test Item Value Reference Range Interpretation Comments UA RBC (test None Seen See_Comment [Automated mes micaela] code = UA RBC) (03/20/16 9:00 The system w hich PM) generated this result transmitted ref erence range: <=2. The reference range was not used to int erpret this result as normal/abnormal . [facility] AND [id number] 02:00:00 Test Item Value Reference Range Interpretation Comments UA Color (test code = Marge *ABN*(03/20/16 UA Color) 9:00 PM) [facility] AND [id number] 02:00:00 Test Item Value Reference Range Interpretation Comments UA Urobilinogen (test code = UA 4.0 0.1-1.0 Urobilinogen) [facility] AND [id number] 02:00:00 Test Item Value Reference Range Interpretation Comments UA Nitrite (test code Positive *ABN*(03/20/16 = UA Nitrite) 9:00 PM) [facility] AND [id number] 02:00:00 Test Item Value Reference Range Interpretation Comments UA Bili (test code = Small *ABN*(03/20/16 UA Bili) 9:00 PM) [facility] AND [id number] 02:00:00 Test Item Value Reference Range Interpretation Comments UA Blood (test code = Trace *ABN*(03/20/16 UA Blood) 9:00 PM) [facility] AND [id number] 02:00:00 Test Item Value Reference Range Interpretation Comments UA Leuk Est (test code Trace *ABN*(03/20/16 = UA Leuk Est) 9:00 PM) [facility] AND [id number] 02:00:00 Test Item Value Reference Range Interpretation Comments UA Glucose (test code Negative (03/20/16 9:00 = UA Glucose) PM) [facility] AND [id number] 02:00:00 Test Item Value Reference Range Interpretation Comments UA pH (test code = UA pH) 6.0 1 5.0-8.0 [facility] AND [id number] 02:00:00 Test Item Value Reference Range Interpretation Comments UA Protein (test code = Trace *ABN*(03/20/16 UA Protein) 9:00 PM) [facility] AND [id number] 02:00:00 Test Item Value Reference Range Interpretation Comments UA Ketones (test code Negative *NA*(03/20/16 = UA Ketones) 9:00 PM) [facility] AND [id number] 02:00:00 Test Item Value Reference Range Interpretation Comments UA Spec Grav (test code = UA Spec 1.025 1 Grav) [facility] AND [id number] 02:00:00 Test Item Value Reference Range Interpretation Comments UA Turbidity (test code Slight Cloudy = UA Turbidity) (03/20/16 9:00 PM) [facility] AND [id number] 02:00:00 Test Item Value Reference Range Interpretation Comments UA WBC (test code = UA WBC) 3-5 /HPF [facility] AND [id number] 02:00:00 Test Item Value Reference Range Interpretation Comments UA Sq Epi (test code = UA Sq Epi) Rare /LPF [facility] AND [id number] 02:00:00 Test Item Value Reference Range Interpretation Comments UA Mucus (test code = UA Mucus) Few /LPF [facility] [facility] AND [id number] 02:00:00 Test Item Value Reference Range Interpretation Comments UA Bacteria (test code = UA Occasional /HPF Bacteria) [facility] AND [id number] 02:00:00 Test Item Value Reference Range Interpretation Comments UA RBC (test None Seen See_Comment [Automated mes micaela] code = UA RBC) (03/20/16 9:00 The system w hich PM) generated this result transmitted ref erence range: <=2. The reference range was not used to int erpret this result as normal/abnormal . [facility] AND [id number] 02:00:00 Test Item Value Reference Range Interpretation Comments UA Color (test code = Marge *ABN*(03/20/16 UA Color) 9:00 PM) [facility]"
[2022-10-13] MEDS ORDERED: ONDANSETRON 4 MG/2 ML VIAL ONE (10:21)
[2022-10-13] MEDS ORDERED: Ringers Lactate 1,000 ML IV ONE (10:21)
[2022-10-13 10:52] LABS: Absolute Lymphocytes (CBC) 0.8 K/uL (0.7-4.9); Hematocrit 40.8 % (36.0-45.0); Lymphocytes % 9.5 % (15.3-44.8); MCV 83.7 fL (80-100); RBC Red Blood Cell Count 4.88 M/uL (3.86-4.86)
[2022-10-13 11:07] LABS: Bilirubin Total 0.8 mg/dL (0.2-1.0); Potassium 3.4 mmol/L (3.5-5.1); Protein, Total 8.5 g/dL (6.4-8.2)
[2022-10-13 11:36] LABS: SARS-COV-2 RT PCR POSITIVE (NEGATIVE)
[2022-10-13 11:51] LABS: Urine Blood Trace-intact (Negative); Urine Glucose Negative (Negative); Urine Protein Negative (Negative); Urine Specific Gravity 1.015 (1.005-1.030)
--- NOTE | 2022-10-13 12:00 | ER ---
Nurse's Notes [facility] Name: Raissa Sharp Age: 72 yrs Sex: Female : 1950 Arrival Date: 10/13/2022 Time: 09:41 Bed 18 Private MD: Diagnosis: Coronavirus infection, unspecified Presentation: 10/13 09:51 Chief complaint: Patient states: was feeling real weak, I was throwing up last night , iw my head was hurting and my body was hurting , everything started last night, +chills, her grandson and granddaughter have COVID and they live with her. Coronavirus screen: Client presents with at least one sign or symptom that may indicate coronavirus-19. Ebola Screen: Patient negative for fever greater than or equal to 101.5 degrees Fahrenheit, and additional compatible Ebola Virus Disease symptoms Patient denies exposure to infectious person. Patient denies travel to an Ebola-affected area in the 21 days before illness onset. No symptoms or risks identified at this time. Initial Sepsis Screen: Does the patient meet any 2 criteria? No. Patient's initial sepsis screen is negative. Does the patient have a suspected source of infection? No. Patient's initial sepsis screen is negative. Risk Assessment: Do you want to hurt yourself or someone else? Patient reports no desire to harm self or others. Onset of symptoms was October 12, 2022. 09:51 Method Of Arrival: Ambulatory iw 09:51 Acuity: NICOLAS 3 iw Triage Assessment: 12:25 GI: Reports nausea. kr3 Historical: - Allergies: 09:53 No Known Allergies; iw - Home Meds: 09:53 enalapril maleate Oral [Active]; iw - PMHx: 09:53 Hypertension; iw - PSHx: 09:53 None; iw - Immunization history:: Client reports receiving the 2nd dose of the Covid vaccine. - Social history:: Smoking status: Patient denies any tobacco usage or history of. Screenin:23 [facility] ED Fall Risk Assessment (Adult) History of falling in the last 3 months, kr3 including since admission No falls in past 3 months (0 pts) Confusion or Disorientation No (0 pts) Intoxicated or Sedated No (0 pts) Impaired Gait No (0 pts) Mobility Assist Device Used No (0 pt) Altered Elimination No (0 pt) Score/Fall Risk Level 0 - 2 = Low Risk. Abuse screen: Denies threats or abuse. Nutritional screening: No deficits noted. Tuberculosis screening: No symptoms or risk factors identified. Assessment: 12:19 General: Appears in no apparent distress. comfortable, Behavior is calm, cooperative, kr3 appropriate for age. 12:24 GI: Abdomen is flat, non-distended. kr3 Vital Signs: 09:51 BP 125 / 64; Pulse 117; Resp 18; Temp 99.5; Pulse Ox 97% on R/A; iw 12:19 BP 120 / 62; Pulse 93; Resp 12; Pulse Ox 100% on R/A; kr3 ED Course: 09:41 Patient arrived in ED. am2 09:42 Damon Goldsmith PA is PHCP. reji 09:42 Roman Espino DO is Attending Physician. usha 09:53 Triage completed. iw 09:54 Arm band placed on. iw 10:00 Bed in low position. Call light in reach. Side rails up X 1. kr3 10:05 Tricia Aj, YOHAN is Primary Nurse. kr3 12:24 No provider procedures requiring assistance completed. IV discontinued, intact, kr3 bleeding controlled, No redness/swelling at site. Pressure dressing applied. Administered Medications: 10:52 Drug: Zofran (Ondansetron) 4 mg Route: IVP; Site: left antecubital; kr3 12:26 Follow up: Response: No adverse reaction kr3 10:53 Drug: Lactated Ringers Solution 1000 ml Route: IV; Rate: 1000 bolus; Site: left kr3 antecubital; 12:26 Follow up: Response: No adverse reaction; IV Status: Completed infusion; IV Intake: kr3 1000ml Medication: 12:25 VIS not applicable for this client. kr3 Intake: 12:26 IV: 1000ml; Total: 1000ml. kr3 Outcome: 12:00 Discharge ordered by . reji 12:24 Discharged to home ambulatory. kr3 12:24 Condition: stable 12:24 Discharge instructions given to patient, Instructed on discharge instructions, follow up and referral plans. medication usage, Demonstrated understanding of instructions, follow-up care, medications, Prescriptions given X 1. 12:25 Patient left the ED. kr3 Signatures: Damon Goldsmith PA PA jmm Williams, Irene, RN RN iw Marla Roman am2 Tricia Aj, RN RN kr3
--- NOTE | 2022-10-13 12:01 | EDPHYS ---
Physician Documentation [facility] Name: Raissa Sharp Age: 72 yrs Sex: Female : 1950 Arrival Date: 10/13/2022 Time: 09:41 Bed 18 Private MD: ED Physician Roman Espino HPI: 10/13 10:07 This 72 yrs old Female presents to ER via Ambulatory with complaints of jmm General Weakness, Vomiting, Headache. 10:07 The patient or guardian reports cough. Onset: The symptoms/episode began/occurred jmm gradually, 1 day(s) ago. Modifying factors: The symptoms are alleviated by nothing, the symptoms are aggravated by nothing. Associated signs and symptoms: Pertinent positives: vomiting. It is unknown whether or not the patient has had similar symptoms in the past. Historical: - Allergies: 09:53 No Known Allergies; iw - Home Meds: 09:53 enalapril maleate Oral [Active]; iw - PMHx: 09:53 Hypertension; iw - PSHx: 09:53 None; iw - Immunization history:: Client reports receiving the 2nd dose of the Covid vaccine. - Social history:: Smoking status: Patient denies any tobacco usage or history of. ROS: 10:07 Constitutional: Positive for body aches. jmm 10:07 Respiratory: Positive for cough. 10:07 Abdomen/GI: Positive for vomiting. 10:07 All other systems are negative. Exam: 10:07 Constitutional: This is a well developed, well nourished patient who is awake, alert, jmm and in no acute distress. Head/Face: atraumatic. Eyes: EOMI, no conjunctival erythema appreciated ENT: Moist Mucus Membranes Neck: Trachea midline, Supple Chest/axilla: Normal chest wall appearance and motion. Cardiovascular: Regular rate and rhythm. No edema appreciated Respiratory: Normal respirations, no respiratory distress appreciated Abdomen/GI: Non distended Back: Normal ROM Skin: General appearance color normal MS/ Extremity: Moves all extremities, no obvious deformities appreciated, no edema noted to the lower extremities Neuro: Awake and alert Psych: Behavior is normal, Mood is normal, Patient is cooperative and pleasant Vital Signs: 09:51 BP 125 / 64; Pulse 117; Resp 18; Temp 99.5; Pulse Ox 97% on R/A; iw 12:19 BP 120 / 62; Pulse 93; Resp 12; Pulse Ox 100% on R/A; kr3 MDM: 10:07 Patient medically screened. [facility] 11:59 Data reviewed: vital signs, nurses notes. I considered the following discharge [facility] prescriptions or medication management in the emergency department Medications were administered in the Emergency Department. See MAR. Counseling: I had a detailed discussion with the patient and/or guardian regarding: the historical points, exam findings, and any diagnostic results supporting the discharge/admit diagnosis, lab results, the need for outpatient follow up, to return to the emergency department if symptoms worsen or persist or if there are any questions or concerns that arise at home. Response to treatment: the patient's symptoms have markedly improved after treatment, patient is well hydrated. and as a result, I will discharge patient. 11:59 I considered the following discharge prescriptions or medication management in the [facility] emergency department Antibiotics: At this time antibiotics are not recommended. 10/13 10:08 Order name: CBC with Diff; Complete Time: 11:15 [facility] 10/13 10:08 Order name: CMP; Complete Time: 11:15 [facility] 10/13 10:08 Order name: Lipase; Complete Time: 11:15 [facility] 10/13 10:08 Order name: COVID-19/FLU A+B; Complete Time: 11:45 [facility] 10/13 11:51 Order name: Urine Dipstick-Ancillary; Complete Time: 11:53 [facility] 10/13 10:08 Order name: IV Saline Lock; Complete Time: 10:45 [facility] 10/13 10:08 Order name: Labs collected and sent; Complete Time: 10:45 [facility] 10/13 10:08 Order name: Urine Dipstick-Ancillary (obtain specimen); Complete Time: 11:50 [facility] Administered Medications: 10:52 Drug: Zofran (Ondansetron) 4 mg Route: IVP; Site: left antecubital; kr3 12:26 Follow up: Response: No adverse reaction kr3 10:53 Drug: Lactated Ringers Solution 1000 ml Route: IV; Rate: 1000 bolus; Site: left kr3 antecubital; 12:26 Follow up: Response: No adverse reaction; IV Status: Completed infusion; IV Intake: kr3 1000ml Disposition: 16:56 Co-signature as Attending Physician, Roman Espino DO I reviewed the patient's care ms3 provided by the Advanced Practice Provider and agree with the diagnosis and treatment plan. Disposition Summary: 10/13/22 12:00 Discharge Ordered Location: Home [facility] Condition: Stable [facility] Diagnosis - Coronavirus infection, unspecified [facility] Followup: [facility] - With: Private Physician - When: 2 - 3 days - Reason: Recheck today's complaints, Continuance of care, Re-evaluation by your physician Discharge Instructions: - Discharge Summary Sheet [facility] Forms: - Medication Reconciliation Form [facility] - Thank You Letter [facility] - Antibiotic Education [facility] - Prescription Opioid Use [facility] Prescriptions: - ondansetron 4 mg Oral - take 4 milligrams by SUBLINGUAL route every 8 hours; 15 tablet; Refills: 0, [facility] Product Selection Permitted Signatures: Dispatcher [employer] Damon Serrano PA PA jmm Williams, Irene, RN RN Roman Esqueda DO DO ms3 Tricia Aj RN RN kr3
[2022-10-13 12:51] VITALS: TEMP 99.5
[2022-10-13 12:52] VITALS: BP 120/62; O2SAT 100
== END 2022-10-13 12:25 | disposition home or self-care (01) ==
LOC: ER 09:40
DX: U07.1 COVID-19 (principal); I10 Essential (primary) hypertension
CPT/HCPCS: 96361; 85025; 36415; 81003; 83690; 80053; 0240U; 96374; 99283; J7120; J2405

== ENCOUNTER 2023-02-21 21:06 | Emergency (ER) | payer OTHER ==
--- OUTSIDE RECORDS SUMMARY | 2023-02-21 21:15 | XMS REPORT | Continuity of Care Document ---
:[address] [facility] t Address [address] [place] [address] [address] [place] [address] Care Team Providers Name Role Phone Verna Jefferson Primary Care Physician Verna Jefferson Attending Clinician Kalee Redd RN Attending Clinician Unavailable JUSTICE GRANDE Attending Clinician Unavailable JUSTICE GRANDE Attending Clinician Unavailable VERNA ARVIZU Attending Clinician Unavailable DOLORES COATS Attending Clinician Unavailable Dolores Coats DO Attending Clinician PHILOMENA GUSMAN Attending Clinician Unavailable Philomena Gusman MD Attending Clinician Justice Grande MD Attending Clinician Lab, Ang - Db Attending Clinician Unavailable Naseem Branch MD Attending Clinician Jeremy De Luna MD Attending Clinician Doctor Unassigned, [place] Attending Clinician Unavailable Lazara Burks RN Attending Clinician Unavailable Only, Ang Db Test Attending Clinician Unavailable Maral Rossi MD Attending Clinician MARLA ROSSI Attending Clinician Unavailable NASEEM BRANCH Attending Clinician Unavailable Lorie Bazzi RN Attending Clinician Unavailable Lab, Adc Fam Pob I Attending Clinician Unavailable Provider, [facility] Attending Clinician Unavailable Lisset Paulino Attending Clinician LISSET PAIGE Attending Clinician Unavailable 2, Adc Lab Attending Clinician Unavailable VIDHYA NEFF Attending Clinician Unavailable VIDHYA NEFF Attending Clinician Unavailable Jyoti Alegria Attending Clinician Yared Jimenez Attending Clinician PHILOMENA GUSMAN Admitting Clinician Unavailable Yared Jimenez Admitting Clinician Payers Payer Name Policy Type Policy Number Effective Date Expiration Date Jesusita LUO PLS [id number] 2021 00:00:00 HMO Problems Condition Condition Condition [...] 00:00: Haile 03/20/2016 00 [facility] Hypertensi Hypertens Problem Resolve 2016-03-26 Memoria ve eduardo d 02:01:24 l disorder, disorder, Herm antoni systemic systemic arterial arterial (disorder) (disorder) Resolved Problem 03/26/2016 [facility] GALLSTONE GALLSTONE Diagnosis Active 2016-03-22 Memoria ILEUS ILEUS 10:26:00 l Active Vick avendaño [facility] Alzheimer' Alzheimer' Disease [facility], Adverse Reactions, Alerts Allergy Allergy Status Severity Reaction(s) Onset Inactive Treating Comm ents Source Name Type Date Date Clinician NO KNOWN Drug Active [facility] ALLERGIE Class [facility] Social History Social Habit Start Date Stop Date Quantity Comments Source Exposure to 2022-08-06 2022-08-16 Not sure [facility]-CoV-2 00:00:00 09:22:00 [facility] (event) Branch Alcohol intake 2022-08-16 2022-08-16 Current University of 00:00:00 00:00:00 non-drinker of [facility] alcohol (finding) Branch Tobacco use and 2022-05-24 2022-05-24 Smokeless tobacco Un iversity of exposure 00:00:00 00:00:00 non-user [facility] Social History 2016-03-21 2016-03-21 [facility] selam 05:03:51 05:03:51 Sex Ass[birth year] At [birth year] Universit y of 00:00:00 00:00:00 [facility] Smoking Status Start Date Stop Date Source Never smoked tobacco [facility] Medications Ordered Filled Start Stop Current Ordering Indication Dosage Frequency Signature Comments Components Source Medication Medication Date Date Medication? Clinician (SIG) Name Name enalapriL-h Yes [id number] 1{tbl} Take 1 Univers ydrochlorot 4-03 tablet by ity of hiazide 00:00: mouth in [place] 5-12.5 mg 00 the Medical per tablet morning. Branc h MUST BE SEEN FOR FURTHER REFILLS ENALAPRIL-H Yes [id number] TAKE ONE Univers YDROCHLOROT 3-06 TABLET BY ity of HIAZIDE 00:00: MOUTH [place] 5-12.5 mg 00 DAILY Medical per tablet Branch ENALAPRIL-H 2022- No [id number] TAKE ONE Univers YDROCHLOROT 3- TABLET BY it y of HIAZIDE 00:00: 00:00 MOUTH [place] 5-12.5 mg 00 :00 DAILY Medical per tablet Branch aspirin 81 2021-09 Yes 81mg Take 81 mg U nivers mg EC 1-23 by mouth ity of tablet 09:42: daily. [address] aspirin 81 2021-09 Yes 81mg Take 81 mg U nivers mg EC 1-23 by mouth ity of tablet 09:42: daily. [address] aspirin 81 2021-09 Yes 81mg Take 81 mg U nivers mg EC 1-23 by mouth ity of tablet 09:42: daily. [address] aspirin 81 2021-09 Yes 81mg Take 81 mg U nivers mg EC 1-23 by mouth ity of tablet 09:42: daily. [address] aspirin 81 2021-09 Yes 81mg Take 81 mg U nivers mg EC 1-23 by mouth ity of tablet 09:42: daily. [address] aspirin 81 2021-09 Yes 81mg Take 81 mg U nivers mg EC 1-23 by mouth ity of tablet 09:42: daily. [address] aspirin 81 2021-09 Yes 81mg Take 81 mg U nivers mg EC 1-23 by mouth ity of tablet 09:42: daily. [address] aspirin 81 2021-09 Yes 81mg Take 81 mg U nivers mg EC 1-23 by mouth ity of tablet 09:42: daily. [address] aspirin 81 2021-09 Yes 81mg Take 81 mg U nivers mg EC 1-23 by mouth ity of tablet 09:42: daily. [address] NaCl 0.9% 2021-09- No 1000mL at 999 Uni vers (NS) bolus 1-20 11-20 mL/hr, ity of infusion 21:30: 22:40 1,000 mL, Mariano as 1,000 mL 00 :00 IV Medical Infusion, Branch ONCE, 1 dose, On 08/13/22 at 1530, RAMO ondansetron 2021-09- No 4mg 4 mg, Slow Univers (ZOFRAN 1-20 11-20 IV Push, ity of (PF)) 20:45: 21:03 ONCE, 1 [place] injection 4 00 :00 dose, On Medi tobias mg [place] Branch 08/13/22 at 1445, RAMO iopamidol 2021-09- No [id number] 72mL 72 mL, Univers (ISOVUE 1-15 11-15 Intravenou ity o f 370-500 mL) 04:30: 04:30 s, ONCE, 1 [place] injection 00 :00 dose, On Medica l 72 mL [facility] Branch 08/07/22 at 2230, Routine NaCl 0.9% 2021-09- No 500mL at 999 Univ ers (NS) bolus 1-15 11-15 mL/hr, 500 it y of infusion 04:00: 04:47 mL, IV [place] 500 mL 00 :00 Infusion, Medical ONCE, 1 Branch dose, On Sun08/07/22 at 2200, STAT ondansetron 2021-09 No 4mg 4 mg, Slow Univers (ZOFRAN 1-15 11-15 IV Push, ity of (PF)) 02:45: 01:50 ONCE, 1 [place] injection 4 00 :00 dose, On Medi tobias mg [facility] Branch 08/07/22 at 2045, RAMO NaCl 0.9% 2021-09- No 500mL at 999 Univ ers (NS) bolus 1-15 11-15 mL/hr, 500 it y of infusion 01:45: 03:05 mL, IV [place] 500 mL 00 :00 Infusion, Medical ONCE, 1 Branch dose, On Sun08/07/22 at 1945, STAT ondansetron 2021-09 Yes [id number] 4mg Take 1 Univers 4 mg 1-14 tablet by ity of disintegrat 00:00: mouth [place] ing tablet 00 every 4 Medica l (four) Branch hours as needed for Nausea and Vomiting (N/V). dicyclomine 2021-09 Yes [id number] 20mg Take 1 Univers 20 mg 1-14 tablet by ity of tablet 00:00: mouth 4 [place] 00 (four) Medical times Branch daily. ondansetron 2021-09 Yes [id number] 4mg Take 1 Univers 4 mg 1-14 tablet by ity of disintegrat 00:00: mouth [place] ing tablet 00 every 4 Medica l (four) Branch hours as needed for Nausea and Vomiting (N/V). dicyclomine 2021-09 Yes [id number] 20mg Take 1 Univers 20 mg 1-14 tablet by ity of tablet 00:00: mouth 4 [place] 00 (four) Medical times Branch daily. ondansetron 2021-09 Yes [id number] 4mg Take 1 Univers 4 mg 1-14 tablet by ity of disintegrat 00:00: mouth [place] ing tablet 00 every 4 Medica l (four) Branch hours as needed for Nausea and Vomiting (N/V). dicyclomine 2021-09 Yes [id number] 20mg Take 1 Univers 20 mg 1-14 tablet by ity of tablet 00:00: mouth 4 [place] (four) Medical times Branch daily. ondansetron 2021-09 Yes [id number] 4mg Take 1 Univers 4 mg 1-14 tablet by ity of disintegrat 00:00: mouth [place] ing tablet 00 every 4 Medica l (four) Branch hours as needed for Nausea and Vomiting (N/V). dicyclomine 2021-09 Yes [id number] 20mg Take 1 Univers 20 mg 1-14 tablet by ity of tablet 00:00: mouth 4 (four) Medical times Branch daily. ondansetron 2021-09 Yes [id number] 4mg Take 1 Univers 4 mg 1-14 tablet by ity of disintegrat 00:00: mouth [place] ing tablet 00 every 4 Medica l (four) Branch hours as needed for Nausea and Vomiting (N/V). dicyclomine 2021-09 Yes [id number] 20mg Take 1 Univers 20 mg 1-14 tablet by ity of tablet 00:00: mouth 4 (four) Medical times Branch daily. ondansetron 2021-09 Yes [id number] 4mg Take 1 Univers 4 mg 1-14 tablet by ity of disintegrat 00:00: mouth [place] ing tablet 00 every 4 Medica l (four) Branch hours as needed for Nausea and Vomiting (N/V). dicyclomine 2021-09 Yes [id number] 20mg Take 1 Univers 20 mg 1-14 tablet by ity of tablet 00:00: mouth 4 [place] 00 (four) Medical times Branch daily. ondansetron 2021-09 Yes [id number] 4mg Take 1 Univers 4 mg 1-14 tablet by ity of disintegrat 00:00: mouth [place] ing tablet 00 every 4 Medica l (four) Branch hours as needed for Nausea and Vomiting (N/V). dicyclomine 2021-09 Yes [id number] 20mg Take 1 Univers 20 mg 1-14 tablet by ity of tablet 00:00: mouth 4 [place] 00 (four) Medical times Branch daily. ondansetron 2021-09 Yes [id number] 4mg Take 1 Univers 4 mg 1-14 tablet by ity of disintegrat 00:00: mouth [place] ing tablet 00 every 4 Medica l (four) Branch hours as needed for Nausea and Vomiting (N/V). dicyclomine 2021-09 Yes [id number] 20mg Take 1 Univers 20 mg 1-14 tablet by ity of tablet 00:00: mouth 4 [place] 00 (four) Medical times Branch daily. ondansetron 2021-09 Yes [id number] 4mg Take 1 Univers 4 mg 1-14 tablet by ity of disintegrat 00:00: mouth [place] ing tablet 00 every 4 Medica l (four) Branch hours as needed for Nausea and Vomiting (N/V). dicyclomine 2021-09 Yes [id number] 20mg Take 1 Univers 20 mg 1-14 tablet by ity of tablet 00:00: mouth (four) Medical times Branch daily. ondansetron 2021-09 Yes [id number] 4mg Take 1 Univers 4 mg 1-14 tablet by ity of disintegrat 00:00: mouth [place] ing tablet 00 every 4 Medica l (four) Branch hours as needed for Nausea and Vomiting (N/V). dicyclomine 2021-09 Yes [id number] 20mg Take 1 Univers 20 mg 1-14 tablet by ity of tablet 00:00: mouth 4 [place] 00 (four) Medical times Branch daily. ondansetron 2021-09 Yes [id number] 4mg Take 1 Univers 4 mg 1-14 tablet by ity of disintegrat 00:00: mouth [place] ing tablet 00 every 4 Medica l (four) Branch hours as needed for Nausea and Vomiting (N/V). dicyclomine 2021-09 Yes [id number] 20mg Take 1 Univers 20 mg 1-14 tablet by ity of tablet 00:00: mouth 4 [place] 00 (four) Medical times Branch daily. galantamine 2022-0 Yes [id number] 8mg Take 1 Univers 8 mg tablet 9-14 tablet by ity of 00:00: mouth in [place] [address] the Medical morning Branch and 1 tablet in the evening. galantamine 2022-0 Yes [id number] 8mg Take 1 Univers 8 mg tablet 9-14 tablet by ity of 00:00: mouth in [place] [address] the Medical morning Branch and 1 tablet in the evening. galantamine 2022-0 Yes [id number] 8mg Take 1 Univers 8 mg tablet 9-14 tablet by ity of 00:00: mouth in [place] [address] the Medical morning Branch and 1 tablet in the evening. galantamine 2022-0 Yes [id number] 8mg Take 1 Univers 8 mg tablet 9-14 tablet by ity of 00:00: mouth in [place] [address] the Medical morning Branch and 1 tablet in the evening. galantamine 2022-0 Yes [id number] 8mg Take 1 Univers 8 mg tablet 9-14 tablet by ity of 00:00: mouth in [place] [address] the Medical morning Branch and 1 tablet in the evening. galantamine 2-0 Yes [id number] 8mg Take 1 Univers 8 mg tablet 9-14 tablet by ity of 00:00: mouth in [place] [address] the Medical morning [place] and 1 tablet in the evening. galantamine 2022-0 Yes [id number] 8mg Take 1 Univers 8 mg tablet 9-14 tablet by ity of 00:00: mouth in [place] [address] the Medical morning [place] and 1 tablet in the evening. galantamine 2022-0 Yes [id number] 8mg Take 1 Univers 8 mg tablet 9-14 tablet by ity of 00:00: mouth in [place] [address] the Medical morning [place] and 1 tablet in the evening. galantamine 2022-0 Yes [id number] 8mg Take 1 Univers 8 mg tablet 9-14 tablet by ity of 00:00: mouth in [place] [address] the Medical morning [place] and 1 tablet in the evening. galantamine 2022-0 Yes [id number] 8mg Take 1 Univers 8 mg tablet 9-14 tablet by ity of 00:00: mouth in [place] [address] the Medical morning [place] and 1 tablet in the evening. galantamine 2022-0 Yes [id number] 8mg Take 1 Univers 8 mg tablet 9-14 tablet by ity of 00:00: mouth in [place] 00 the Medical morning Branch and 1 tablet in the evening. galantamine 2-0 Yes [id number] 8mg Take 1 Univers 8 mg tablet 9-14 tablet by ity of 00:00: mouth in [place] the Medical morning Branch and 1 tablet in the evening. loratadine 2-0 Yes [id number] 10mg Take 1 Univers 10 mg 8-31 tablet by ity of tablet 00:00: mouth in [place] 00 the Medical morning. Branch triamcinolo 2-0 Yes [id number] Apply to Univers ne 8-31 area(s) 2 ity of acetonide 00:00: (two) [place] 0.1 % cream 00 times Medical daily. Branch loratadine 2-0 Yes [id number] 10mg Take 1 Univers 10 mg 8-31 tablet by ity of tablet 00:00: mouth in [place] the Medical morning. Branch triamcinolo 2-0 Yes [id number] Apply to Univers ne 8-31 area(s) 2 ity of acetonide 00:00: (two) [place] 0.1 % cream 00 times Medical daily. Branch loratadine 2-0 Yes [id number] 10mg Take 1 Univers 10 mg 8-31 tablet by ity of tablet 00:00: mouth in [place] the Medical morning. Branch triamcinolo 2-0 Yes [id number] Apply to Univers ne 8-31 area(s) 2 ity of acetonide 00:00: (two) [place] 0.1 % cream 00 times Medical daily. Branch loratadine 2-0 Yes [id number] 10mg Take 1 Univers 10 mg 8-31 tablet by ity of tablet 00:00: mouth in [place] the Medical morning. Branch triamcinolo 2-0 Yes [id number] Apply to Univers ne 8-31 area(s) 2 ity of acetonide 00:00: (two) [place] 0.1 % cream 00 times Medical daily. Branch loratadine 2-0 Yes [id number] 10mg Take 1 Univers 10 mg 8-31 tablet by ity of tablet 00:00: mouth in [place] 00 the Medical morning. Branch triamcinolo 2022-0 Yes [id number] Apply to Univers ne 8-31 area(s) 2 ity of acetonide 00:00: (two) [place] 0.1 % cream 00 times Medical daily. Branch loratadine 2022-0 Yes [id number] 10mg Take 1 Univers 10 mg 8-31 tablet by ity of tablet 00:00: mouth in [place] 00 the Medical morning. Branch triamcinolo 2-0 Yes [id number] Apply to [facility] ne 8-31 area(s) 2 ity of acetonide 00:00: (two) [place] 0.1 % cream 00 times Medical daily. Branch loratadine 2-0 Yes [id number] 10mg Take 1 Univers 10 mg 8-31 tablet by ity of tablet 00:00: mouth in [place] 00 the Medical morning. Branch triamcinolo 2-0 Yes [id number] Apply to [facility] ne 8-31 area(s) 2 ity of acetonide 00:00: (two) [place] 0.1 % cream 00 times Medical daily. Branch loratadine 2-0 Yes [id number] 10mg Take 1 Univers 10 mg 8-31 tablet by ity of tablet 00:00: mouth in [place] 00 the Medical morning. Branch triamcinolo 2-0 Yes [id number] Apply to [facility] 8-31 area(s) 2 ity of acetonide 00:00: (two) [place] 0.1 % cream 00 times Medical daily. Branch loratadine 2-0 Yes [id number] 10mg Take 1 Univers 10 mg 8-31 tablet by ity of tablet 00:00: mouth in [place] 00 the Medical morning. Branch triamcinolo 2-0 Yes [id number] Apply to [facility] 8-31 area(s) 2 ity of acetonide 00:00: (two) [place] 0.1 % cream 00 times Medical daily. Branch loratadine 2-0 Yes [id number] 10mg Take 1 Univers 10 mg 8-31 tablet by ity of tablet 00:00: mouth in [place] 00 the Medical morning. Branch triamcinolo 2022-0 Yes [id number] Apply to [facility] ne 8-31 area(s) 2 ity of acetonide 00:00: (two) [place] 0.1 % cream 00 times Medical daily. Branch loratadine 2022-0 Yes [id number] 10mg Take 1 Univers 10 mg 8-31 tablet by ity of tablet 00:00: mouth in [place] 00 the Medical morning. Branch triamcinolo 2-0 Yes [id number] Apply to Univers ne 8-31 area(s) 2 ity of acetonide 00:00: (two) [place] 0.1 % cream 00 times Medical daily. Branch loratadine 2-0 Yes [id number] 10mg Take 1 Univers 10 mg 8-31 tablet by ity of tablet 00:00: mouth in [place] 00 the Medical morning. Branch triamcinolo 2-0 Yes [id number] Apply to Univers ne 8-31 area(s) 2 ity of acetonide 00:00: (two) [place] 0.1 % cream 00 times Medical daily. Branch loratadine 2-0 Yes [id number] 10mg Take 1 Univers 10 mg 8-31 tablet by ity of tablet 00:00: mouth in [place] 00 the Medical morning. Branch triamcinolo 2-0 Yes [id number] Apply to Univers ne 8-31 area(s) 2 ity of acetonide 00:00: (two) [place] 0.1 % cream 00 times Medical daily. Branch loratadine 2021-0 Yes [id number] 10mg Take 1 Univers 10 mg 8-31 tablet by ity of tablet 00:00: mouth in [place] 00 the Medical morning. Branch triamcinolo 2-0 Yes [id number] Apply to Univers ne 8-31 area(s) 2 ity of acetonide 00:00: (two) [place] 0.1 % cream 00 times Medical daily. Branch galantamine 2021-0 Yes [id number] 4mg Take 1 Univers 4 mg tablet 7-15 tablet by ity of 00:00: mouth in [place] the Medical morning Branch and 1 tablet in the evening. When script completes, call office for a new script. galantamine 2021-0 Yes [id number] 4mg Take 1 Univers 4 mg tablet 7-15 tablet by ity of 00:00: mouth in [place] the Medical morning Branch and 1 tablet in the evening. When script completes, call office for a new script. galantamine 2021-0 2- No [id number] 4mg Take 1 Univers 4 mg tablet 7-15 09-14 tablet by it y of 00:00: 00:00 mouth in [place] 00 :00 the Medical morning Branch and 1 tablet in the evening. When script completes, call office for a new script. enalapriL-h Yes [id number] 1{tbl} Take 1 Univers ydrochlorot 7-08 tablet by ity of hiazide 00:00: mouth [place] 5-12.5 mg 00 daily. Medical per tablet Branch metformin Yes [id number] 500mg Take 1 Univers ER 500 mg 7-08 tablet by ity o f 24 hr 00:00: mouth 2 [place] tablet 00 (two) Medical times Branch daily with meals. enalapriL-h Yes [id number] 1{tbl} Take 1 Univers ydrochlorot 7-08 tablet by ity of hiazide 00:00: mouth [place] 5-12.5 mg 00 daily. Medical per tablet Branch metformin Yes [id number] 500mg Take 1 Univers ER 500 mg 7-08 tablet by ity o f 24 hr 00:00: mouth 2 [place] tablet 00 (two) Medical times Branch daily with meals. enalapriL-h Yes [id number] 1{tbl} Take 1 Univers ydrochlorot 7-08 tablet by ity of hiazide 00:00: mouth [place] 5-12.5 mg 00 daily. Medical per tablet Branch metformin Yes [id number] 500mg Take 1 Univers ER 500 mg 7-08 tablet by ity o f 24 hr 00:00: mouth 2 [place] tablet 00 (two) Medical times Branch daily with meals. enalapriL-h Yes [id number] 1{tbl} Take 1 Univers ydrochlorot 7-08 tablet by ity of hiazide 00:00: mouth [place] 5-12.5 mg 00 daily. Medical per tablet Branch metformin Yes [id number] 500mg Take 1 Univers ER 500 mg 7-08 tablet by ity o f 24 hr 00:00: mouth 2 [place] tablet 00 (two) Medical times Branch daily with meals. enalapriL-h Yes [id number] 1{tbl} Take 1 Univers ydrochlorot 7-08 tablet by ity of hiazide 00:00: mouth [place] 5-12.5 mg 00 daily. Medical per tablet Branch metformin Yes [id number] 500mg Take 1 Univers ER 500 mg 7-08 tablet by ity o f 24 hr 00:00: mouth 2 [place] tablet 00 (two) Medical times Branch daily with meals. enalapriL-h Yes [id number] 1{tbl} Take 1 Univers ydrochlorot 7-08 tablet by ity of hiazide 00:00: mouth [place] 5-12.5 mg 00 daily. Medical per tablet Branch metformin 2021-0 Yes [id number] 500mg Take 1 Univers ER 500 mg 7-08 tablet by ity o f 24 hr 00:00: mouth 2 [place] tablet 00 (two) Medical times Branch daily with meals. metformin Yes [id number] 500mg Take 1 Univers ER 500 mg 7-08 tablet by ity o f 24 hr 00:00: mouth 2 [place] tablet 00 (two) Medical times Branch daily with meals. metformin Yes [id number] 500mg Take 1 Univers ER 500 mg 7-08 tablet by ity o f 24 hr 00:00: mouth 2 [place] tablet 00 (two) Medical times Branch daily with meals. enalapriL-h Yes [id number] 1{tbl} Take 1 Univers ydrochlorot 7-08 tablet by ity of hiazide 00:00: mouth [place] 5-12.5 mg 00 daily. Medical per tablet Branch metformin 0 Yes [id number] 500mg Take 1 Univers ER 500 mg 7-08 tablet by ity o f 24 hr 00:00: mouth 2 [place] tablet 00 (two) Medical times Branch daily with meals. enalapriL-h 2021-0 Yes [id number] 1{tbl} Take 1 Univers ydrochlorot 7-08 tablet by ity of hiazide 00:00: mouth [place] 5-12.5 mg 00 daily. Medical per tablet Branch metformin Yes [id number] 500mg Take 1 Univers ER 500 mg 7-08 tablet by ity o f 24 hr 00:00: mouth 2 [place] tablet 00 (two) Medical times Branch daily with meals. enalapriL-h 2021- Yes [id number] 1{tbl} Take 1 Univers ydrochlorot 7-08 tablet by ity of hiazide 00:00: mouth [place] 5-12.5 mg 00 daily. Medical per tablet Branch metformin 2021-0 Yes [id number] 500mg Take 1 Univers ER 500 mg 7-08 tablet by ity o f 24 hr 00:00: mouth 2 [place] tablet 00 (two) Medical times Branch daily with meals. enalapriL-h Yes [id number] 1{tbl} Take 1 Univers ydrochlorot 7-08 tablet by ity of hiazide 00:00: mouth [place] 5-12.5 mg 00 daily. Medical per tablet Branch metformin Yes [id number] 500mg Take 1 Univers ER 500 mg 7-08 tablet by ity o f 24 hr 00:00: mouth 2 [place] tablet 00 (two) Medical times Branch daily with meals. enalapriL-h Yes [id number] 1{tbl} Take 1 Univers ydrochlorot 7-08 tablet by ity of hiazide 00:00: mouth [place] 5-12.5 mg 00 daily. Medical per tablet Branch metformin Yes [id number] 500mg Take 1 Univers ER 500 mg 7-08 tablet by ity o f 24 hr 00:00: mouth 2 [place] tablet 00 (two) Medical times Branch daily with meals. enalapriL-h Yes [id number] 1{tbl} Take 1 Univers ydrochlorot 7-08 tablet by ity of hiazide 00:00: mouth [place] 5-12.5 mg 00 daily. Medical per tablet Branch metformin Yes [id number] 500mg Take 1 Univers ER 500 mg 7-08 tablet by ity o f 24 hr 00:00: mouth 2 [place] tablet 00 (two) Medical times Branch daily with meals. enalapriL-h 2022- No [id number] 1{tbl} Take 1 Univers ydrochlorot 7-08 03-06 tablet by it y of hiazide 00:00: 00:00 mouth [place] 5-12.5 mg 00 :00 daily. Medical per tablet Branch ATORVASTATI Yes [id number] TAKE ONE Univers N 20 mg 7-07 TABLET BY ity of tablet 00:00: MOUTH AT [place] 00 BEDTIME Medical Branch ATORVASTATI 0 Yes [id number] TAKE ONE Univers N 20 mg 7-07 TABLET BY ity of tablet 00:00: MOUTH AT [place] 00 BEDTIME Medical Branch ATORVASTATI Yes [id number] TAKE ONE Univers N 20 mg 7-07 TABLET BY ity of tablet 00:00: MOUTH AT [place] [facility] [id number] TAKE ONE Univers N 20 mg 7-07 TABLET BY ity of tablet 00:00: MOUTH AT [place] [facility] Yes [id number] TAKE ONE Univers N 20 mg 7-07 TABLET BY ity of tablet 00:00: MOUTH AT [place] [facility] Yes [id number] TAKE ONE Univers N 20 mg 7-07 TABLET BY ity of tablet 00:00: MOUTH AT [place] [facility] Yes [id number] TAKE ONE Univers N 20 mg 7-07 TABLET BY ity of tablet 00:00: MOUTH AT [address] [facility] Yes [id number] TAKE ONE Univers N 20 mg 7-07 TABLET BY ity of tablet 00:00: MOUTH AT [address] [facility] Yes [id number] TAKE ONE Univers N 20 mg 7-07 TABLET BY ity of tablet 00:00: MOUTH AT [address] [facility] Yes [id number] TAKE ONE Univers N 20 mg 7-07 TABLET BY ity of tablet 00:00: MOUTH AT [address] [facility] Yes [id number] TAKE ONE Univers N 20 mg 7-07 TABLET BY ity of tablet 00:00: MOUTH AT [address] [facility] Yes [id number] TAKE ONE Univers N 20 mg 7-07 TABLET BY ity of tablet 00:00: MOUTH AT [address] [facility] Yes [id number] TAKE ONE Univers N 20 mg 7-07 TABLET BY ity of tablet 00:00: MOUTH AT [address] [facility] Yes [id number] TAKE ONE Univers N 20 mg 7-07 TABLET BY ity of tablet 00:00: MOUTH AT [address] aspirin 81 2020-0 Yes 81mg Take 81 mg U nivers mg EC 7-28 by mouth ity of tablet 08:53: daily. [address] aspirin 81 2020-0 Yes 81mg Take 81 mg U nivers mg EC 7-28 by mouth ity of tablet 08:53: daily. [address] aspirin 81 2020-0 Yes 81mg Take 81 mg U nivers mg EC 7-28 by mouth ity of tablet 08:53: daily. [address] aspirin 81 2020-0 Yes 81mg Take 81 mg U nivers mg EC 7-28 by mouth ity of tablet 08:53: daily. [address] aspirin 81 2020-0 Yes 81mg Take 81 mg U nivers mg EC 7-28 by mouth ity of tablet 08:53: daily. [address] vitamin 2019- Yes [id number] 1000ug Take 1 U nivers B-12 1,000 1-18 tablet by ity of mcg tablet 00:00: mouth [place] 00 daily. [facility] vitamin 2019- Yes [id number] 1000ug Take 1 U nivers B-12 1,000 1-18 tablet by ity of mcg tablet 00:00: mouth [place] 00 daily. [facility] vitamin 2019- Yes [id number] 1000ug Take 1 U nivers B-12 1,000 1-18 tablet by ity of mcg tablet 00:00: mouth [place] 00 daily. [facility] vitamin 2019- Yes [id number] 1000ug Take 1 U nivers B-12 1,000 1-18 tablet by ity of mcg tablet 00:00: mouth [place] 00 daily. [facility] vitamin 2019- Yes [id number] 1000ug Take 1 U nivers B-12 1,000 1-18 tablet by ity of mcg tablet 00:00: mouth [place] 00 daily. [facility] vitamin 2019-1 Yes [id number] 1000ug Take 1 U nivers B-12 1,000 1-18 tablet by ity of mcg tablet 00:00: mouth [place] 00 daily. [facility] vitamin 2019- Yes [id number] 1000ug Take 1 U nivers B-12 1,000 1-18 tablet by ity of mcg tablet 00:00: mouth [place] 00 daily. [facility] vitamin 2019- Yes [id number] 1000ug Take 1 U nivers B-12 1,000 1-18 tablet by ity of mcg tablet 00:00: mouth [place] 00 daily. [facility] vitamin 2019- Yes [id number] 1000ug Take 1 U nivers B-12 1,000 1-18 tablet by ity of mcg tablet 00:00: mouth [place] 00 daily. [facility] vitamin 2019- Yes [id number] 1000ug Take 1 U nivers B-12 1,000 1-18 tablet by ity of mcg tablet 00:00: mouth [place] 00 daily. [facility] vitamin 2019- Yes [id number] 1000ug Take 1 U nivers B-12 1,000 1-18 tablet by ity of mcg tablet 00:00: mouth [place] 00 daily. [facility] vitamin 2019- Yes [id number] 1000ug Take 1 U nivers B-12 1,000 1-18 tablet by ity of mcg tablet 00:00: mouth [place] 00 daily. [facility] vitamin 2019- Yes [id number] 1000ug Take 1 U nivers B-12 1,000 1-18 tablet by ity of mcg tablet 00:00: mouth [place] 00 daily. [facility] vitamin 2018- Yes [id number] 1000ug Take 1 U nivers B-12 1,000 1-18 tablet by ity of mcg tablet 00:00: mouth [place] 00 daily. [facility] PROLIA 60 2019-0 Yes INJECT 1ML Un juliana mg/mL 2-05 60MG DOSE ity of injection 00:00: [place]BC[place]O [place] 00 USLY EVERY Medical 6 MONTHS Branch PROLIA 60 2018-0 Yes INJECT 1ML Un juliana mg/mL 2-05 [...] EVERY Medical 6 MONTHS Branch PROLIA 60 2018-0 Yes INJECT 1ML Un juliana mg/mL 2-05 60MG DOSE ity of injection 00:00: [place] 00 USLY EVERY Medical 6 MONTHS Branch PROLIA 60 2018-0 Yes INJECT 1ML Un juliana mg/mL 2-05 60MG DOSE ity of injection 00:00: [place] 00 USLY EVERY Medical 6 MONTHS Branch PROLIA 60 0 Yes INJECT 1ML Un juliana mg/mL 2-05 [...] EVERY Medical 6 MONTHS Branch PROLIA 60 0 Yes INJECT 1ML Un juliana mg/mL 2-05 [...] MG / 14:00: Drug Form: [place] Hydrochloro TAB, thiazide Dosing 12.5 MG Weight 70, Oral Tablet kg, Daily, Start date: 03/24/16 9:00:00 CDT, Duration: 30 day, Stop date: 04/22/16 9:00:00 CDT Microzide No Notes: Memori a 03-24 (Same as: l 14:00: Microzide) [place] 00 With food. Vasotec No Notes: Memoria 03-24 (Same as: l 14:00: Vasotec) multivitami No Notes: Stefan catrachito n 03-24 (Same l 14:00: as:Thera) [place] 00 WASTE: F/P - Black; E - [...] a 03-24 (Same as: l 14:00: Microzide) [place] 00 With food. Vasotec No Notes: Memoria 03-24 (Same as: l 14:00: Vasotec) [place] multivitami No Notes: Stefan catrachito n 03-24 (Same l 14:00: as:Thera) [place] WASTE: F/P - Black; E - Municipal [...] 03-24 (Same as: l 14:00: Microzide) [place] With food. Vasotec No Notes: Memoria 03-24 (Same as: l 14:00: Vasotec) [place] multivitami No Notes: Stefan catrachito n 03-24 (Same l 14:00: as:Thera) [place] WASTE: F/P - Black; E - Municipal Trash Bin Take with food. Enalapril No 1 tab, Memori a Maleate 03-24 Route: PO, l MG / 14:00: Drug Form: [place] Hydrochloro 00 TAB, thiazide Dosing 12.5 MG Weight 70, Oral Tablet kg, Daily, Start date: 03/24/16 9:00:00 CDT, Duration: 30 day, Stop date: 04/22/16 9:00:00 CDT Microzide No Notes: Memori a 03-24 (Same as: l 14:00: Microzide) [place] With food. Microzide No Notes: Memori a 03-24 (Same as: l 14:00: Microzide) [place] With food. Vasotec No Notes: Memoria 03-24 (Same as: l 14:00: Vasotec) [place] multivitami No Notes: Stefan catrachito n 7 (Same l 14:00: as:Thera) [place] 00 WASTE: F/P - Black; E - [employer] Trash Bin Take with food. Enalapril No 1 tab, Memori a Maleate 5 03-24 Route: PO, l MG / 14:00: Drug Form: [place] Hydrochloro 00 TAB, thiazide Dosing 12.5 MG Weight 70, Oral Tablet kg, Daily, Start date: 03/24/16 9:00:00 CDT, Duration: 30 day, Stop date: 04/22/16 9:00:00 CDT [email or web address] Yes 100 mg = 1 Mem oria sodium 100 6-30 cap, PO, l mg oral 20:48: BID, # 60 [place] nn capsule 25 cap, 0 Refill(s), Pharmacy: [facility] [address] [place] [address] Yes 100 mg = 1 Mem oria sodium 100 6-30 cap, PO, l mg oral 20:48: BID, # 60 [place] nn capsule 25 cap, 0 Refill(s), Pharmacy: [facility] [address] [place] [address] Yes 100 mg = 1 Mem oria sodium 100 6-30 cap, PO, l mg oral 20:48: BID, # 60 [place] nn capsule 25 cap, 0 Refill(s), Pharmacy: [facility] [address] [place] [address] Yes 100 mg = 1 Mem oria sodium 100 6-30 cap, PO, l mg oral 20:48: BID, # 60 [place] nn capsule 25 cap, 0 Refill(s), Pharmacy: [facility] [address] [place] [address] Yes 100 mg = 1 Mem oria sodium 100 6-30 cap, PO, l mg oral 20:48: BID, # 60 [place] nn capsule 25 cap, 0 Refill(s), Pharmacy: [facility] [address] [place] [address] Yes 100 mg = 1 Mem oria sodium 100 6-30 cap, PO, l mg oral 20:48: BID, # 60 [place] nn capsule 25 cap, 0 Refill(s), Pharmacy: [facility] Acetaminoph Yes 1 - 2 tab, Memoria [...] nn capsule 00 cap, 0 Refill(s), Pharmacy: [facility] [id number] Acetaminoph No 1 - 2 tab, Memoria [...] nn capsule 00 cap, 0 Refill(s), Pharmacy: [facility] [address] [place] [address] No 1 - 2 tab, Memoria en [...] nn capsule 00 cap, 0 Refill(s), Pharmacy: [facility] [address] [place] [address] No 1 - 2 tab, Memoria en [...] nn capsule 00 cap, 0 Refill(s), Pharmacy: [facility] [address] [place] [address] No 1 - 2 tab, Memoria en [...] nn capsule 00 cap, 0 Refill(s), Pharmacy: [facility] [address] [place] [address] 2016-0 No 1 - 2 tab, Memoria en 300 MG / 6-30 PO, Q4H, l Codeine 20:25: PRN Pain, [place] nn Phosphate 00 X 3 day, # 30 MG Oral 20 tab, 0 Tablet Refill(s) [Tylenol with Codeine #3] docusate 0 No 100 mg = 1 Mem oria sodium 100 6-30 cap, PO, l mg oral 20:25: BID, # 60 [place] nn capsule 00 cap, 0 Refill(s), Pharmacy: [facility] [id number] acetaminoph No 1,000 mg [...] Q6H, 0 Herm antoni 00 Refill(s) Enalapril 0 No 1 tab, PO, Me moria Maleate 5 6-30 Daily, 0 l MG / 19:44: Refill(s) [place] Hydrochloro 00 thiazide 12.5 MG Oral Tablet acetaminoph No 1,000 mg = Memoria en 500 mg 6-30 2 tab, PO, l oral tablet 19:44: Q6H, 0 Herm antoni 00 Refill(s) Enalapril 0 No 1 tab, PO, Me moria Maleate 5 6-30 Daily, 0 l MG / 19:44: Refill(s) [place] Hydrochloro 00 thiazide 12.5 MG Oral Tablet acetaminoph No 1,000 mg = Memoria en 500 mg 6-30 2 tab, PO, l oral tablet 19:44: Q6H, 0 Herm antoni 00 Refill(s) Enalapril 0 No 1 tab, PO, Me moria Maleate 5 6-30 Daily, 0 l MG / 19:44: Refill(s) [place] Hydrochloro 00 thiazide 12.5 MG Oral Tablet acetaminoph No 1,000 mg = Memoria en 500 mg 6-30 2 tab, PO, l oral tablet 19:44: Q6H, 0 Herm antoni 00 Refill(s) Enalapril 2016 No 1 tab, PO, Me moria Maleate 5 6-30 Daily, 0 l MG / 19:44: Refill(s) [place] Hydrochloro 00 thiazide 12.5 MG Oral Tablet [...] Laxative 6-30 (Same As: l 16:30: Dulcolax, [place] 00 Bisco-Lax) Tramadol No Notes: Not Mem [...] oria 6-30 to exceed l 05:00: 400mg/day. [place] 00 (Same As: Ultram) Acetaminoph No Notes: Max Memoria en 6-30 acetaminop l 05:00: hen 4000 [place] 00 mg/day (4 gm/day). (Same as: Tylenol Extra Strength) Tramadol No Notes: Not Mem oria 6-30 to exceed l 05:00: 400mg/day. [place] 00 (Same As: Ultram) Acetaminoph No Notes: Max Memoria en 6-30 acetaminop l 05:00: hen 4000 [place] 00 mg/day (4 gm/day). (Same as: Tylenol Extra Strength) Tramadol No Notes: Not Mem oria 6-30 to exceed l 05:00: 400mg/day. [place] 00 (Same As: Ultram) Acetaminoph No Notes: Max Memoria en 6-30 acetaminop l 05:00: hen 4000 [place] 00 mg/day (4 gm/day). (Same as: Tylenol Extra Strength) heparin No Notes: Memoria 6-28 porcine l 21:00: heparin [place] 00 heparin No Notes: Memoria 6-28 porcine l 21:00: heparin [place] heparin No Notes: Memoria 6-28 porcine l 21:00: heparin [place] heparin No Notes: Memoria 6-28 porcine l 21:00: heparin heparin No Notes: [facility] 6-28 porcine l 21:00: heparin heparin No Notes: [...] ) Hydromorpho No Notes: Stefan catrachito ne - Same as: l 17:49: Dilaudid Ondansetron No [...] Memoria 6-28 Same as l 17:49: Narcan [place] 00 Oxycodone No Notes: Memori a 6-28 (Same as: l 17:49: Roxicodone ) Hydromorpho No Notes: Stefan catrachito ne - Same as: l 17:49: Dilaudid [place] 00 Ondansetron No Notes: Stefan catrachito 6-28 (Same as: l 17:49: Zofran) [place] 00 MEDICATION WASTE Product Size: 4 mg Product Wasted: ___ mg Hydralazine No Notes: Stefan catrachito 6-28 (Same as: l 17:49: Apresoline [place] 00 ) Push over 5 minutes Labetalol No 10 mg, 2 Stefan catrachito 6-28 mL, Route: l 17:49: IVP, Drug [place] 00 form: INJ, Q5Min, Dosing Weight 70, kg, PRN Elevated BP, Start date: 03/21/16 12:49:00 CDT, Duration: 5 doses or times, Stop date: 03/22/16 0:00:00 CDT Flumazenil No Notes: Memor ia - (Same as: l 17:49: Romazicon) Naloxone No Notes: Memoria - Same as l 17:49: Narcan Oxycodone No Notes: Memori a 6- (Same as: l 17:49: Roxicodone ) Hydromorpho No Notes: Stefan catrachito ne - Same as: l 17:49: Dilaudid Ondansetron No Notes: Stefan catrachito 6-28 (Same as: l 17:49: Zofran) [place] 00 MEDICATION WASTE Product Size: 4 mg Product Wasted: ___ mg Hydralazine No Notes: Stefan catrachito 6-28 (Same as: l 17:49: Apresoline [place] 00 ) Push over 5 minutes Labetalol No 10 mg, 2 Stefan catrachito 6-28 mL, Route: l 17:49: IVP, Drug [place] 00 form: INJ, Q5Min, Dosing Weight 70, kg, PRN Elevated BP, Start date: 03/21/16 12:49:00 CDT, Duration: 5 doses or times, Stop date: 03/22/16 0:00:00 CDT Flumazenil No Notes: Memor ia 6-28 (Same as: l 17:49: Romazicon) [place] 00 Naloxone No Notes: Memoria 6-28 Same as l 17:49: Narcan Oxycodone No Notes: Memori a 6-28 (Same as: l 17:49: Roxicodone ) Hydromorpho No Notes: Stefan catrachito ne 6- Same as: l 17:49: Dilaudid Ondansetron No Notes: Stefan catrachito 6-28 (Same as: l 17:49: Zofran) [place] 00 MEDICATION WASTE Product Size: 4 mg [...] ia 6-28 (Same as: l 17:49: Romazicon) [place] 00 Naloxone No Notes: Memoria 6-28 Same as l 17:49: Narcan Oxycodone No Notes: Memori a 6-28 (Same as: l 17:49: Roxicodone ) Hydromorpho No Notes: Stefan catrachito ne 6-28 Same as: l 17:49: Dilaudid Ondansetron No Notes: Stefan catrachito 6-28 (Same as: l 17:49: Zofran) [place] 00 MEDICATION WASTE Product Size: 4 mg Product Wasted: ___ mg Hydralazine No Notes: Stefan catrachito - (Same as: l 17:49: Apresoline ) Push [...] ___ mg Hydralazine No Notes: Stefan catrachito -28 (Same as: l 17:49: Apresoline ) Push [...] Only; For patients < 120 kg Ancef 2016-0 No 2 gm, Memoria 03-21 Route: l 16:50: IVPB, [place] 00 ONCE, Dosing Weight 70, kg, Start date: 03/21/16 11:50:00 CDT, Duration: 1 doses or times, Stop date: 03/21/16 11:50:00 CDT, Surgical Prophylaxi s Only; For patients < 120 kg Ancef 2016-0 No 2 gm, Memoria 03-21 Route: l 16:50: IVPB, [place] 00 ONCE, Dosing Weight 70, kg, Start date: 03/21/16 11:50:00 CDT, Duration: 1 doses or times, Stop date: 03/21/16 11:50:00 CDT, Surgical Prophylaxi s Only; For patients < 120 kg Ancef 2016-0 No 2 gm, Memoria 03-21 Route: l 16:50: IVPB, [place] 00 ONCE, Dosing Weight 70, kg, Start date: 03/21/16 11:50:00 CDT, Duration: 1 doses or times, Stop date: 03/21/16 11:50:00 CDT, Surgical Prophylaxi s Only; For patients < 120 kg Ancef 2016-0 No 2 gm, Memoria 03-21 Route: l 16:50: IVPB, [place] 00 ONCE, Dosing Weight 70, kg, Start date: 03/21/16 11:50:00 CDT, Duration: 1 doses or times, Stop date: 03/21/16 11:50:00 CDT, Surgical Prophylaxi s Only; For patients < 120 kg Isolyte S 2015-0 No Notes: Memori a (PH 7.4) - (Same as: l 1000 mL 13:40: Isolyte S [place] nn 1,000 mL 00 PH 7.4) Isolyte S 2015-0 No Notes: Memori a (PH 7.4) 03-21 (Same as: l 1000 mL 13:40: Isolyte S [place] nn 1,000 mL 00 PH 7.4) Isolyte S 0 No Notes: Memori a (PH 7.4) - (Same as: l 1000 mL 13:40: Isolyte [...] - Daily, 0 l 12:37: Refill(s) [place] 00 multivitami Yes 1 tab, PO, Memoria n 03-21 Daily, 0 l 12:37: Refill(s) [place] 00 multivitami Yes 1 tab, PO, Memoria n - Daily, 0 l 12:37: Refill(s) [place] 00 multivitami Yes 1 tab, PO, Memoria n 6- Daily, 0 l 12:37: Refill(s) [place] 00 multivitami Yes 1 tab, PO, Memoria n - Daily, 0 l 12:37: Refill(s) [place] 00 multivitami Yes 1 tab, PO, Memoria n - Daily, 0 l 12:37: Refill(s) [place] 00 Enalapril No 1 tab, PO, Me moria Maleate 5 - Daily, 0 l MG / 12:36: Refill(s) [place] Hydrochloro 00 thiazide 12.5 MG Oral Tablet Enalapril No 1 tab, PO, Me moria Maleate 5 - Daily, 0 l MG / 12:36: Refill(s) [place] Hydrochloro 00 thiazide 12.5 MG Oral Tablet Enalapril No 1 tab, PO, Me moria Maleate 5 03-21 Daily, 0 l MG / 12:36: Refill(s) [place] Hydrochloro 00 thiazide 12.5 MG Oral Tablet Enalapril No 1 tab, PO, Me moria Maleate 5 6- Daily, 0 l MG / 12:36: Refill(s) [place] Hydrochloro 00 thiazide 12.5 MG Oral Tablet Enalapril No 1 tab, PO, Me moria Maleate 5 6-28 Daily, 0 l MG / 12:36: Refill(s) [place] Hydrochloro 00 thiazide 12.5 MG Oral Tablet Enalapril No 1 tab, PO, Me moria Maleate 5 6- Daily, 0 l MG / 12:36: Refill(s) [place] Hydrochloro 00 thiazide 12.5 MG Oral Tablet D5W 1/2NS + No Notes: Stefan catrachito KCL 20mEq/L 03-21 PREMIX IV l 1000ml 11:38: - Do Not [place] (Premix) 00 Alter 1,000 mL WASTE: F/P [...] Sodium No 1,000 mL, Memori a Chloride 6- 1,000 l 0.154 11:38: ml/hr, [place] MEQ/ML 00 Infuse Injectable Over: 1 Solution hr, Route: IV, ONCE, Priority: STAT, Dosing Weight 70 kg, Start date: 03/21/16 6:38:00 CDT, Duration: 1 doses or times, Stop date: 03/21/16 6:38:00 CDT D5W 1/2NS + 2016-0 No Notes: Stefan catrachito KCL 20mEq/L 6-28 [...] date: 03/21/16 6:38:00 CDT D5W 1/2NS + 2016-0 No Notes: Stefan catrachito KCL 20mEq/L 6-28 [...] date: 03/21/16 6:38:00 CDT D5W 1/2NS + 2016-0 No Notes: Stefan catrachito KCL 20mEq/L 03-21 PREMIX IV l 1000ml 11:38: - Do Not [place] (Premix) 00 Alter 1,000 mL WASTE: F/P - Sink; E - Municipal Trash Bin Sodium No 1,000 mL, Memori a Chloride 03-21 1,000 l 0.154 11:38: ml/hr, [place] MEQ/ML 00 Infuse Injectable Over: 1 Solution hr, Route: IV, ONCE, Priority: STAT, Dosing Weight 70 kg, Start date: 03/21/16 6:38:00 CDT, Duration: 1 doses or times, Stop date: 03/21/16 6:38:00 CDT Lactated No 1,000 mL, Stefan catrachito Ringers 03-21 Rate: 125 l 1,000 mL 11:36: ml/hr, [place] 00 Infuse over: 8 hr, Route: IV, Dosing Weight 70 kg, Total Volume: 1,000, Start date: 03/21/16 6:36:00 CDT, Duration: 30 day, Stop date: 04/20/16 6:35:00 CDT Saline No Notes: Memoria Flush 0.9% 03-21 Same as: l 11:36: BD [place] 00 Posiflush Sterile Acetaminoph No Notes: Do M emoria en 03-21 not exceed l 11:36: 4 gm/day. [place] 00 (Same as: Tylenol) Docusate No Notes: Memoria 03-21 (Same as: l 11:36: Colace) [place] 00 (Do Not Crush) Ondansetron No Notes: Stefan catrachito 03-21 (Same as: l 11:36: Zofran) [place] 00 MEDICATION WASTE Product Size: 4 mg Product Wasted: ___ mg Morphine No Notes: Memoria 03-21 (Same l 11:36: as:MORPhin [place] 00 e Sulfate) Lactated No 1,000 mL, Stefan catrachito Ringers 03-21 Rate: 125 l 1,000 mL 11:36: ml/hr, [place] 00 Infuse over: 8 hr, Route: IV, Dosing Weight 70 kg, Total Volume: 1,000, Start date: 03/21/16 6:36:00 CDT, Duration: 30 day, Stop date: 04/20/16 6:35:00 CDT Saline No Notes: [facility] Flush 0.9% 03-21 Same as: l 11:36: BD [place] 00 Posiflush Sterile Acetaminoph No Notes: Do M emoria en 03-21 not exceed l 11:36: 4 gm/day. [place] 00 (Same as: Tylenol) Docusate No Notes: Memoria 03-21 (Same as: l 11:36: Colace) [place] 00 (Do Not Crush) Ondansetron No Notes: Stefan catrachito 03-21 (Same as: l 11:36: Zofran) [place] 00 MEDICATION WASTE Product Size: 4 mg Product Wasted: ___ mg Morphine No Notes: Memoria 03-21 (Same l 11:36: as:MORPhin [place] 00 e Sulfate) Lactated No 1,000 mL, Stefan catrachito Ringers 03-21 Rate: 125 l 1,000 mL 11:36: ml/hr, [place] 00 Infuse over: 8 hr, Route: IV, Dosing Weight 70 kg, Total Volume: 1,000, Start date: 03/21/16 6:36:00 CDT, Duration: 30 day, Stop date: 04/20/16 6:35:00 CDT Saline No Notes: Memoria Flush 0.9% 03-21 Same as: l 11:36: BD [place] Posiflush Sterile Acetaminoph No Notes: Do M emoria en 03-21 not exceed l 11:36: 4 gm/day. [place] 00 (Same as: Tylenol) Docusate No Notes: Memoria 03-21 (Same as: l 11:36: Colace) [place] 00 (Do Not Crush) Ondansetron No Notes: Stefan catrachito 03-21 (Same as: l 11:36: Zofran) [place] 00 MEDICATION WASTE Product Size: 4 mg Product Wasted: ___ mg Morphine No Notes: Memoria 03-21 (Same l 11:36: as:MORPhin [place] 00 e Sulfate) Lactated No 1,000 mL, Stefan catrachito Ringers 03-21 Rate: 125 l 1,000 mL 11:36: ml/hr, [place] 00 Infuse over: 8 hr, Route: IV, Dosing Weight 70 kg, Total Volume: 1,000, Start date: 03/21/16 6:36:00 CDT, Duration: 30 day, Stop date: 04/20/16 6:35:00 CDT Saline No Notes: [facility] Flush 0.9% 03-21 Same as: l 11:36: BD [place] 00 Posiflush Sterile Acetaminoph No Notes: Do M emoria en 03-21 not exceed l 11:36: 4 gm/day. [place] 00 (Same as: Tylenol) Docusate No Notes: Memoria 03-21 (Same as: l 11:36: Colace) [place] 00 (Do Not Crush) Ondansetron No Notes: Stefan catrachito 03-21 (Same as: l 11:36: Zofran) [place] 00 MEDICATION WASTE Product Size: 4 mg Product Wasted: ___ mg Morphine No Notes: Memoria 03-21 (Same l 11:36: as:MORPhin [place] 00 e Sulfate) Lactated No 1,000 mL, Stefan catrachito Ringers 03-21 Rate: 125 l 1,000 mL 11:36: ml/hr, [place] 00 Infuse over: 8 hr, Route: IV, Dosing Weight 70 kg, Total Volume: 1,000, Start date: 03/21/16 6:36:00 CDT, Duration: 30 day, Stop date: 04/20/16 6:35:00 CDT Saline No Notes: Mem[facility] Flush 0.9% 03-21 Same as: l 11:36: BD [place] 00 Posiflush Sterile Acetaminoph No Notes: Do M emoria en 03-21 not exceed l 11:36: 4 gm/day. [place] 00 (Same as: Tylenol) Docusate No Notes: Memoria 03-21 (Same as: l 11:36: Colace) [place] 00 (Do Not Crush) Ondansetron No Notes: Stefan catrachito 03-21 (Same as: l 11:36: Zofran) [place] 00 MEDICATION WASTE Product Size: 4 mg Product Wasted: ___ mg Morphine No Notes: Memoria 03-21 (Same l 11:36: as:MORPhin [place] 00 e Sulfate) Lactated No 1,000 mL, Stefan catrachito Ringers 03-21 Rate: 125 l 1,000 mL 11:36: ml/hr, [place] Infuse over: 8 hr, Route: IV, Dosing Weight 70 kg, Total Volume: 1,000, Start date: 03/21/16 6:36:00 CDT, Duration: 30 day, Stop date: 04/20/16 6:35:00 CDT Saline No Notes: Memoria Flush 0.9% 03-21 Same as: l 11:36: BD [place] 00 Posiflush Sterile Acetaminoph No Notes: Do M emoria en 03-21 not exceed l 11:36: 4 gm/day. [place] 00 (Same as: Tylenol) Docusate No Notes: Memoria 03-21 (Same as: l 11:36: Colace) [place] (Do Not Crush) Ondansetron No Notes: Stefan catrachito 03-21 (Same as: l 11:36: Zofran) [place] 00 MEDICATION WASTE Product Size: 4 mg Product Wasted: ___ mg Morphine No Notes: Memoria 03-21 (Same l 11:36: as:MORPhin [place] 00 e Sulfate) Morphine No 4 mg, Memoria 03-21 Route: l 10:07: IVP, Drug [place] 00 form: INJ, ONCE, Dosing Weight 70, kg, Priority: STAT, Start date: 03/21/16 5:07:00 CDT, Stop date: 03/21/16 5:07:00 CDT Morphine No 4 mg, Memoria 03-21 Route: l 10:07: IVP, Drug [place] 00 form: INJ, ONCE, Dosing Weight 70, kg, Priority: STAT, Start date: 03/21/16 5:07:00 CDT, Stop date: 03/21/16 5:07:00 CDT Morphine 2016-0 No 4 mg, Memoria 6 Route: l 10:07: IVP, Drug [place] 00 form: INJ, ONCE, Dosing Weight 70, kg, Priority: STAT, Start date: 03/21/16 5:07:00 CDT, Stop date: 03/21/16 5:07:00 CDT Morphine 2016-0 No 4 mg, Memoria 6 Route: l 10:07: IVP, Drug [place] 00 form: INJ, ONCE, Dosing Weight 70, kg, Priority: STAT, Start date: 03/21/16 5:07:00 CDT, Stop date: 03/21/16 5:07:00 CDT Morphine 2016-0 No 4 mg, Memoria 6 Route: l 10:07: IVP, Drug [place] 00 form: INJ, ONCE, Dosing Weight 70, kg, Priority: STAT, Start date: 03/21/16 5:07:00 CDT, Stop date: 03/21/16 5:07:00 CDT Morphine 2016-0 No 4 mg, Memoria 03-21 Route: l 10:07: IVP, Drug [place] 00 form: INJ, ONCE, Dosing Weight 70, kg, Priority: STAT, Start date: 03/21/16 5:07:00 CDT, Stop date: 03/21/16 5:07:00 CDT Calcium 2016-0 No 1,000 mL, Memor ia Chloride 03-21 1,000 l 0.0014 05:16: ml/hr, [place] MEQ/ML / 00 Infuse Potassium Over: 1 Chloride hr, Route: 0.004 IV, ONCE, MEQ/ML / Priority: Sodium STAT, Chloride Dosing 0.103 Weight 70 MEQ/ML / kg, Start Sodium date: Lactate 03/21/16 0.028 0:16:00 MEQ/ML CDT, Injectable Duration: Solution 1 doses or times, Stop date: 03/21/16 0:16:00 CDT Calcium 2016-0 No 1,000 mL, Memor ia Chloride 03-21 1,000 l 0.0014 05:16: ml/hr, [place] MEQ/ML / 00 Infuse Potassium Over: 1 [...] Chloride 6-28 1,000 l 0.0014 05:16: ml/hr, [place] MEQ/ML / 00 Infuse Potassium Over: 1 [...] Chloride 6-28 1,000 l 0.0014 05:16: ml/hr, [place] MEQ/ML / 00 Infuse Potassium Over: 1 [...] Memoria 6- Route: l 05:12: IVP, Drug [place] 00 form: INJ, ONCE, Dosing Weight 70, kg, Priority: STAT, Start date: 03/21/16 0:12:00 CDT, Stop date: 03/21/16 0:12:00 CDT Morphine 2016-0 No 4 mg, Memoria 6- Route: l 05:12: IVP, Drug [place] 00 form: INJ, ONCE, Dosing Weight 70, kg, Priority: STAT, Start date: 03/21/16 0:12:00 CDT, Stop date: 03/21/16 0:12:00 CDT Morphine 2016-0 No 4 mg, Memoria 6- Route: l 05:12: IVP, Drug [place] 00 form: INJ, ONCE, Dosing Weight 70, kg, Priority: STAT, Start date: 03/21/16 0:12:00 CDT, Stop date: 03/21/16 0:12:00 CDT Morphine 2016-0 No 4 mg, Memoria 6- Route: l 05:12: IVP, Drug [place] 00 form: INJ, ONCE, Dosing Weight 70, kg, Priority: STAT, Start date: 03/21/16 0:12:00 CDT, Stop date: 03/21/16 0:12:00 CDT Zofran 2016-0 No 4 mg, Memoria 6 Route: l 05:11: IVP, Drug [place] 00 form: INJ, ONCE, Dosing Weight 70, kg, Priority: STAT, Start date: 03/21/16 0:11:00 CDT, Stop date: 03/21/16 0:11:00 CDT Zofran 2016-0 No 4 mg, [facility] 6 Route: l 05:11: IVP, Drug [place] 00 form: INJ, ONCE, Dosing Weight 70, kg, Priority: STAT, Start date: 03/21/16 0:11:00 CDT, Stop date: 03/21/16 0:11:00 CDT Zofran 2016-0 No 4 mg, [facility] 6 Route: l 05:11: IVP, Drug [place] 00 form: INJ, ONCE, Dosing Weight 70, kg, Priority: STAT, Start date: 03/21/16 0:11:00 CDT, Stop date: 03/21/16 0:11:00 CDT Zofran 2016-0 No 4 mg, [facility]oria 03-21 Route: l 05:11: IVP, Drug [place] 00 form: INJ, ONCE, Dosing Weight 70, kg, Priority: STAT, Start date: 03/21/16 0:11:00 CDT, Stop date: 03/21/16 0:11:00 CDT Zofran 2016-0 No 4 mg, [facility] 6 Route: l 05:11: IVP, Drug [place] 00 form: INJ, ONCE, Dosing Weight 70, kg, Priority: STAT, Start date: 03/21/16 0:11:00 CDT, Stop date: 03/21/16 0:11:00 CDT Zofran 2016-0 No 4 mg, [facility] 6 Route: l 05:11: IVP, Drug [place] 00 form: INJ, ONCE, Dosing Weight 70, kg, Priority: STAT, Start date: 03/21/16 0:11:00 CDT, Stop date: 03/21/16 0:11:00 CDT Immunizations Ordered Filled Immunization Date Status Comments Sourc e Immunization Name Name SARS-COV-2 COVID-19 2021-08-25 Completed Unive rs[facility] of MARJ/J&J VACCINE 00:00:00 [facility] SARS-COV-2 COVID-19 2021-08-25 Completed Unive rsity of MARJ/J&J VACCINE 00:00:00 [facility] SARS-COV-2 COVID-19 2021-08-25 Completed Unive rsity of MARJ/J&J VACCINE 00:00:00 [facility] SARS-COV-2 COVID-19 2021-08-25 Completed Unive rsity of MARJ/J&J VACCINE 00:00:00 [facility] SARS-COV-2 COVID-19 2021-08-25 Completed Unive rsity of MARJ/J&J VACCINE 00:00:00 [facility] SARS-COV-2 COVID-19 2021-08-25 Completed Unive rsity of MARJ/J&J VACCINE 00:00:00 [facility] SARS-COV-2 COVID-19 2021-08-25 Completed Unive rsity of MARJ/J&J VACCINE 00:00:00 [facility] SARS-COV-2 COVID-19 2021-08-25 Completed Unive rsity of MARJ/J&J VACCINE 00:00:00 [facility] SARS-COV-2 COVID-19 2021-08-25 Completed Unive rsity of MARJ/J&J VACCINE 00:00:00 [facility] SARS-COV-2 COVID-19 2021-08-25 Completed Unive rsity of MARJ/J&J VACCINE 00:00:00 [facility] SARS-COV-2 COVID-19 2021-08-25 Completed Unive rsity of MARJ/J&J VACCINE 00:00:00 [facility] SARS-COV-2 COVID-19 2021-08-25 Completed Unive rsity of MARJ/J&J VACCINE 00:00:00 [facility] SARS-COV-2 COVID-19 2021-08-25 Completed Unive rsity of MARJ/J&J VACCINE 00:00:00 [facility] SARS-COV-2 COVID-19 2021-08-25 Completed Unive rsity of MARJ/J&J VACCINE 00:00:00 [facility] SARS-COV-2 COVID-19 2020-11-22 Completed Unive rsity of MARJ/J&J VACCINE 00:00:00 [facility] SARS-COV-2 COVID-19 2020-11-22 Completed Unive rsity of MARJ/J&J VACCINE 00:00:00 [facility] SARS-COV-2 COVID-19 2020-11-22 Completed Unive rsity of MARJ/J&J VACCINE 00:00:00 [facility] SARS-COV-2 COVID-19 2020-11-22 Completed Unive rsity of MARJ/J&J VACCINE 00:00:00 [facility] SARS-COV-2 COVID-19 2020-11-22 Completed Unive rsity of MARJ/J&J VACCINE 00:00:00 [facility] SARS-COV-2 COVID-19 2020-11-22 Completed Unive rsity of MARJ/J&J VACCINE 00:00:00 [facility] SARS-COV-2 COVID-19 2020-11-22 Completed Unive rsity of MARJ/J&J VACCINE 00:00:00 [facility] SARS-COV-2 COVID-19 2020-11-22 Completed Unive rsity of MARJ/J&J VACCINE 00:00:00 [facility] SARS-COV-2 COVID-19 2020-11-22 Completed Unive rsity of MARJ/J&J VACCINE 00:00:00 [facility] SARS-COV-2 COVID-19 2020-11-22 Completed Unive rsity of MARJ/J&J VACCINE 00:00:00 [facility] SARS-COV-2 COVID-19 2020-11-22 Completed Unive rsity of MARJ/J&J VACCINE 00:00:00 [facility] SARS-COV-2 COVID-19 2020-11-22 Completed Unive rsity of MARJ/J&J VACCINE 00:00:00 [facility] SARS-COV-2 COVID-19 2020-11-22 Completed Unive rsity of MARJ/J&J VACCINE 00:00:00 [facility] SARS-COV-2 COVID-19 2020-11-22 Completed Unive rsity of MARJ/J&J VACCINE 00:00:00 [facility] Vital Signs Vital Name Observation Time Observation Value Comments Source Systolic blood 2022-08-16 16:42:00 130 mm[Hg] [facility]iver [facility] Diastolic blood 2022-08-16 16:42:00 70 mm[Hg] [facility]ive rsity [facility] BMI 2022-08-16 15:42:00 26.37 kg/m2 [facility] Oxygen saturation in 2022-08-16 15:42:00 98 /min [facility] of Arterial blood by [place] [facility] tobias Pulse oximetry Branch Heart rate 2022-08-16 15:42:00 76 /min [facility] Body temperature 2022-08-16 15:42:00 36.39 Pallavi [facility] Body height 2022-08-16 15:42:00 152.4 cm [facility] Body weight 2022-08-16 15:42:00 61.236 kg [facility] Systolic blood 2022-08-13 22:00:00 128 mm[Hg] [facility] Diastolic blood 2022-08-13 22:00:00 68 mm[Hg] Unive rs[facility] Heart rate 2022-08-13 22:00:00 71 /min [facility] Respiratory rate 2022-08-13 22:00:00 18 /min Univ [facility] Oxygen saturation in 2022-08-13 22:00:00 97 /min [facility] of Arterial blood by [place] [facility] Pulse oximetry Branch Body temperature 2022-08-13 20:23:00 36.56 Pallavi [facility] Body weight 2022-08-13 20:23:00 61.236 kg [facility] BMI 2022-08-13 20:23:00 26.37 kg/m2 [facility] Systolic blood 2022-08-08 04:46:00 115 mm[Hg] [facility]iver [facility] Diastolic blood 2022-08-08 04:46:00 49 mm[Hg] [facility]ive [facility] Heart rate 2022-08-08 04:46:00 72 /min [facility] Respiratory rate 2022-08-08 04:46:00 16 /min Univ [facility] Oxygen saturation in 2022-08-08 04:46:00 96 /min University of Arterial blood by [facility] Pulse oximetry Branch Body temperature 2022-08-08 01:05:00 36.94 Pallavi [facility] Body height 2022-08-08 01:05:00 152.4 cm [facility] Body weight 2022-08-08 01:05:00 61.598 kg [facility] BMI 2022-08-08 01:05:00 26.52 kg/m2 [facility] Systolic blood 2022-05-24 16:30:00 137 mm[Hg] [facility] Diastolic blood 2022-05-24 16:30:00 74 mm[Hg] [facility]ive [facility] Heart rate 2022-05-24 16:21:00 74 /min [facility] Body height 2022-05-24 16:21:00 152.4 cm [facility] Body weight 2022-05-24 16:21:00 62.052 kg [facility] BMI 2022-05-24 16:21:00 26.72 kg/m2 [facility] Oxygen saturation in 2022-05-24 16:21:00 99 /min [facility] of Arterial blood by [facility] Pulse oximetry Branch Systolic (mm Hg) 2016-03-23 21:25:00 Stefan rial [facility] Diastolic (mm Hg) 2016-03-23 21:25:00 Mem orial [facility] Heart Rate 2016-03-23 21:25:00 [facility] Temperature Oral (F) 2016-03-23 21:25:00 98.6 F [facility] Respitory Rate 2016-03-23 21:25:00 Memori al [facility] Temperature Oral (F) 2016-03-23 17:28:00 98.2 F [facility] Respitory Rate 2016-03-23 17:28:00 Memori al [facility] Heart Rate 2016-03-23 17:28:00 [facility] Systolic (mm Hg) 2016-03-23 17:28:00 Stefan rial [facility] Diastolic (mm Hg) 2016-03-23 17:28:00 Mem orial [facility] Systolic (mm Hg) 2016-03-23 13:28:00 Stefan luke [facility] Diastolic (mm Hg) 2016-03-23 13:28:00 Savanna puente [facility] Respitory Rate 2016-03-23 13:28:00 Zoraida rich [facility] Heart Rate 2016-03-23 13:28:00 Jayden Esquedaann Temperature Oral (F) 2016-03-23 13:28:00 97.6 F [facility] Weight 2016-03-21 15:13:00 [facility] Height 2016-03-21 15:13:00 152.4 cm [facility] BMI Calculated 2016-03-21 15:13:00 Zoraida rich [facility] Weight 2016-03-21 00:38:00 [facility] BMI Calculated 2016-03-21 00:38:00 Zoraida rich [facility] Height 2016-03-21 00:38:00 152.4 cm [facility] Procedures Procedure Date / Time Performing Clinician Source Performed URINALYSIS 2022-08-13 22:07:00 Dolores Coats [facility] LIPASE 2022-08-13 20:56:00 Dolores Coats [facility] TROPONIN I 2022-08-13 20:56:00 Dolores Coats [facility] COMP. METABOLIC PANEL 2022-08-13 20:56:00 Dolores Coats [facility] ([id number]) [facility] CBC WITH DIFF 2022-08-13 20:56:00 Dolores Coats [facility] CONSENT/REFUSAL FOR 2022-08-13 20:16:24 Doctor Unassigned, No Un [facility] DIAGNOSIS AND TREATMENT Name [facility] CT ABDOMEN PELVIS W 2022-08-08 03:31:42 Philomena Gusman [facility] CONTRAST [facility] COMP. METABOLIC PANEL 2022-08-08 02:33:00 Philomena Gusman [facility] ([id number]) [facility] LACTIC ACID WHOLE BLOOD 2022-08-08 01:28:00 Philomena Gusman [facility] LIPASE 2022-08-08 01:22:00 Philomena Gusman [facility] TROPONIN I 2022-08-08 01:22:00 Philomena Gusman [facility] CBC WITH DIFF 2022-08-08 01:22:00 Philomena Gusman [place] [facility] PROTHROMBIN TIME / INR 2022-08-08 01:22:00 Philomena Gusman [facility] rsity of [facility] ACTIVATED PARTIAL 2022-08-08 01:22:00 Philomena Gusman [facility] THRMPLAS [facility] URINALYSIS 2022-08-08 01:22:00 Philomena Gusman [place] [facility] RAPID INFLUENZA A/B 2022-08-08 01:22:[address] [facility] N-TERMINAL PRO-BNP 2022-08-08 01:22:[address] NOTICE OF PRIVACY 2022-08-08 00:54:00 Doctor Unassigned, No Univ [facility] PRACTICES Name [facility] CONSENT/REFUSAL FOR 2022-08-08 00:52:43 Doctor Unassigned, No [facility] Name [facility] section [facility] Encounters Start End Encounter Admission Attending Care Care Encounter Source Date/Time Date/Time Type Type Clinicians Facility Department ID 2022-07-06 Outpatient [facility] [id number] [place] 12:18:46 [id number] Health 2022-12-23 2022-12-23 [facility] 1.2.840.114 [id number] Univers 00:00:00 00:00:00 Verna A HEALTH 350.1.13.10 i ty of [place] 4.2.7.2.686 Mariano as GILBERTO?BLEA [id number] [address] MEDICAL OFFICE [facility] 2022-11-24 2022-11-24 [facility] 1.2.840.114 [id number] Univers 00:00:00 00:00:00 Verna A HEALTH 350.1.13.10 i ty of [place] 4.2.7.2.686 Mariano as GILBERTO?BLEA [id number] [address] MEDICAL OFFICE [facility] 2022-09-08 2022-09-08 Telephone GARETH Redd [id number] Univers 00:00:00 00:00:00 Kalee [facility].1.13.10 [facility] 4.2.7.2.686 Mariano as [phone] [address] 2022-08-16 2022-08-16 Outpatient R SHELLIE [facility] [id number] Univers 09:30:00 10:22:38 VERNA veronica [facility] 2022-08-16 2022-08-16 [facility] 1.2.840.114 [id number] Univers 09:30:00 10:22:38 Visit Verna [facility] 350.1.13.10 i ty of [place] 4.2.7.2.686 Mariano as GILBERTO?BLEA [phone] Co jovanna[address] OFFICE [facility] 2022-08-13 2022-08-13 Emergency [facility] ERT [id number] Univers 14:28:00 16:42:00 DOLORES saharaedmar [facility] 2022-08-13 2022-08-13 Emergency [facility] 1.2.840.114 [id number] Univers 14:28:00 16:42:00 Dolores BURGOS 350.1.13.10 ity of [place] 4.2.7.2.686 [facility] [id number] [address] 2022-08-07 2022-08-07 Emergency [facility] E[facility] [id number] Univers 19:10:00 23:11:00 PHILOMENA [facility] 2022-08-07 2022-08-07 Emergency [facility] 1.2.165.119 [id number] Univers 19:10:00 23:11:00 Philomena BURGOS 350.1.13.10 i ty of [place] 4[place]2.7.2.[place] [id number] [address] 2022-06-03 2022-06-03 [place]ris [place] 1.2.840.114 [id number] Univers 00:00:00 00:00:00 [facility] 350.1.13.10 ity of [place] 4.2.7.2.686 Mariano as GILBERTO?BLEA [phone] Co perla SOSAEY 092 [facility] OFFICE [facility] 2022-05-24 2022-05-24 Office [facility] 1.2.840.114 [id number] Univers 11:30:00 12:00:00 Visit Verna A HEALTH 350.1.13.10 i ty of [place] 4.2.7.2.686 Mariano as GILBERTO?BLEA [phone] Co perla GREENE 044 [facility] 2022-05-24 2022-05-24 Outpatient R SHELLIE [facility] [id number] Univers 11:30:00 11:30:00 VERNA veronica [facility] 2022-05-24 2022-05-24 Outpatient R SHELLIE [facility] [id number] Univers 11:30:00 11:30:00 VERNA ity [facility] 2022-04-07 2022-04-07 Outpatient R JUSTICE GRANDE [facility] [id number] Univers 13:20:00 14:03:27 [facility] 2022-04-07 2022-04-07 Office [facility] 1.2.840.114 [id number] Univers 13:20:00 14:03:27 Visit Justice Stephen HEALTH 350.1.13.10 ity of [place] 4.2.7.2.686 Mariano as GILBERTO?BLEA [phone] Co perla GREENE 092 [facility] OFFICE [facility] 2022-04-06 2022-04-06 Telephone [facility] [id number] Univers 00:00:00 00:00:00 Verna Dumont HEALTH 350.1.13.10 i ty of [place] 4.2.7.2.686 Mariano as GILBERTO?BLEA [phone] Co dical IANEY 044 [facility] OFFICE [facility] 2022-04-04 2022-04-04 Mesh Man Lab, Ang - Db RUST 1.2.840.1 14 [id number] Univers 07:45:00 08:00:00 Visit Verna Arvizu HEALTH 350.1.13.10 ity of [place] 4.2.7.2.686 Mariano as GILBERTO?BLEA [phone] Me dical KNEY 353 [facility] OFFICE [facility] 2022-04-04 2022-04-04 Outpatient R SHELLIE, [facility] [id number] Univers 07:45:00 07:45:00 VERNA veronica [facility] 2022-03-31 2022-03-31 Office [facility] 1.2.840.114 [id number] Univers 14:30:00 15:13:32 Visit Verna A HEALTH 350.1.13.10 i ty of [place] 4.2.7.2.686 Mariano as GILBERTO?BLEA [phone] [address] MEDICAL OFFICE [facility] 2022-03-31 2022-03-31 Outpatient R SHELLIE, [facility] [id number] Univers 14:30:00 15:13:32 VERNA veronica [facility] 2022-03-31 2022-03-31 Outpatient R SHELLIE, [facility] [id number] Univers 14:30:00 14:30:00 VERNA veronica [facility] 2022-03-30 2022-03-30 Refill [facility] 1.2.840.114 [id number] Univers 00:00:00 00:00:00 Wondiful A HEALTH 350.1.13.10 ity of [place] 4.2.7.2.686 Mariano as GILBERTO?BLEA [phone] [address] OFFICE [facility] 2022-02-01 2022-02-01 Telephone [facility] 1.2.648.195 [id number] Univers 00:00:00 00:00:00 Jeremy HEALTH 350.1.13.10 it y of [place] 4.2.7.2.686 Mariano as GILBERTO?BLEA [phone] [address] MEDICAL OFFICE [facility] 2022-02-01 2022-02-01 Orders Doctor SERVIN 1.2.840.114 [id number] Univers 00:00:00 00:00:00 Only Unassigned, TITA 350.1.13.10 ity of [place] [facility] 4.2.7.2.686 Mariano as [id number] [address] 2022-01-18 2022-01-18 Telephone [facility] 1.2.840.114 [id number] Univers 00:00:00 00:00:00 Wondiful A HEALTH 350.1.13.10 ity of [place] 4.2.7.2.686 Mariano as GILBERTO?BLEA [phone] Co perla GREENE 044 [facility] OFFICE [facility] 2021-12-30 2021-12-30 Outpatient R JUSTICE GRANDE [facility] [id number] Univers 16:20:00 16:20:00 JUSTICE GRANDE [facility] 2021-12-28 2021-12-28 [facility]patient [facility] [id number] Univers 16:30:00 16:30:00 VERNA [facility] 2021-10-16 2021-10-16 Letter GARETH Burks 1.2.840.114 [id number] Univers 00:00:00 00:00:00 (Out) Lazara Baltazar TITA 350.1.13.10 it y of HOSPITAL 4.2.7.2.686 Mariano as [phone] [address] 2021-10-15 2021-10-15 Laboratory Only, Ang Db Test RUST 1.2.8 40.114 [id number] Univers 09:15:00 09:30:00 Only Marla Rossi HEALTH 350.1.13.10 ity of [place] 4.2.7.2.686 Mariano as GILBERTO?BLEA [phone] Co perla GREENE 370 [facility] 2021-10-15 2021-10-15 Outpatient R SAM [facility] [id number] Univers 09:15:00 09:15:00 MARLA veronica [facility] 2021-10-07 2021-10-07 Mesh Man Lab, Ang - Db [place]UST 1.2.840.1 14 [id number] Univers 10:30:00 13:58:49 Visit Naseem Branch A HEALTH 350.1.13.1 0 ity of [place] 4.2.7.2.686 Mariano as GILBERTO?BLEA [phone] Co perla GREENE 353 [facility] OFFICE [facility] 2021-10-07 2021-10-07 [facility]patient [facility] [id number] Univers 10:30:00 10:30:00 WONDIFUL ity o f [facility] 2021-10-06 2021-10-06 Outpatient R SARINA [facility] [id number] Univers 11:00:00 11:51:28 WONDIFUL ity o f [facility] 2021-10-06 2021-10-06 Office [facility] 1.2.840.114 [id number] Univers 11:00:00 11:51:28 Visit Wondiful A HEALTH 350.1.13.10 ity [facility] 4.2.7.2.686 Mariano as GILBERTO?BLEA [id number] Co perla GREENE [address] [place] [address] MEDICAL OFFICE BUILDING 2021-10-06 2021-10-06 Outpatient [facility] [id number] Univers 11:00:00 11:51:28 WONDIFUL ity o f [facility] 2021-10-01 2021-10-01 Refill [facility] 1.2.840.114 [id number] Univers 00:00:00 00:00:00 Wondiful A HEALTH 350.1.13.10 ity [facility] 4.2.7.2.686 Mariano as PROFESSIO [phone] Co perla ROJO [address] [place] [address] OFFICE BUILDING ONE 2021-08-25 2021-08-25 Orders Doctor SERVIN 1.2.840.114 [id number] Univers 00:00:00 00:00:00 Only Unassigned, TITA 350.1.13.10 ity of [place] [facility] 4.2.7.2.686 Mariano as [phone] [facility] 009 Branch 2021-05-27 2021-05-27 Telephone GARETH Bazzi 1.2.872.511 [id number] Univers 00:00:00 00:00:00 Aneatrice TITA 350.1.13.10 ity of HOSPITAL 4.2.7.2.686 Mariano as [phone] [facility] 019 Branch 2021-05-25 2021-05-25 Laboratory Only, Ang Db Test RUST 1.2.8 40.114 [id number] Univers 12:41:34 12:51:34 Only Marla Rossi Health 350.1.13.10 ity of [place] 4.2.7.2.686 Mariano as Gilberto?Blea [phone] Co perla greene 370 [facility] Office [facility] 2021-05-25 2021-05-25 Outpatient R [facility] [id number] Univers 12:30:00 12:30:00 ity of [facility] 2021-04-08 2021-04-08 Telephone [facility] 1.2.840.114 [id number] Univers 00:00:00 00:00:00 Wondiful A Health 350.1.13.10 ity of [place] 4.2.7.2.686 Mariano as Professio [phone] Co dicwv nal [address] [place] [address] Office [facility] One 2021-04-06 2021-04-06 Case [facility] 1.2.840.114 [id number] Univers 00:00:00 00:00:00 Management Wondiful A Health 350.1.13.10 ity of [place] 4.2.7.2.686 Mariano as Professio [phone] Co dichilario rojo [address] [place] [address] Office [facility] One 2021-04-04 2021-04-04 Outpatient [facility] [id number] Univers 11:15:00 11:15:00 WONDIFUL ity o f [facility] 2021-03-30 2021-03-30 Telephone [facility] 1.2.840.114 [id number] Univers 00:00:00 00:00:00 Wondiful A Health 350.1.13.10 ity of [place] 4.2.7.2.686 Mariano as Professio [phone] Co dical nal 044 [place] Office [facility] One 2021-03-28 2021-03-28 Mesh Man Lab, [facility] P[facility] I RUST 1.2. 840.114 [id number] Univers 08:02:10 08:22:10 Visit Naseem Branch A Health 350.1.13.1 0 ity of [place] 4.2.7.2.686 Mariano as Professio [phone] Co dical nal 044 [facility] One 2021-03-28 2021-03-28 Outpatient [facility] [id number] Univers 08:00:00 08:00:00 WONDIFUL ity o f [facility] 2021-03-25 2021-03-25 Office [facility] 1.2.840.114 [id number] Univers 12:58:21 13:30:36 Visit Wondiful A Health 350.1.13.10 ity of [place] 4.2.7.2.686 Mariano as Professio [phone] [address] One 2021-03-25 2021-03-25 Outpatient [facility] [id number] Univers 13:00:00 13:00:00 WONDIFUL ity o f [facility] 2021-03-17 2021-03-17 Refill [facility] 1.2.840.114 [id number] Univers 00:00:00 00:00:00 Wondiful A Health 350.1.13.10 ity of [place] 4.2.7.2.686 Mariano as Professio [phone] [address] One 2021-03-16 2021-03-16 Refill [facility] 1.2.840.114 [id number] Univers 00:00:00 00:00:00 Wondiful A Health 350.1.13.10 ity of [place] 4.2.7.2.686 Mariano as Professio [phone] [address] One 2021-03-14 2021-03-14 Telephone [facility] 1.2.840.114 [id number] Univers 00:00:00 00:00:00 Wondiful A Health 350.1.13.10 ity of [place] 4.2.7.2.686 Mariano as Professio [phone] [address] One 2021-03-08 2021-03-08 Urgent Provider, [facility] 1.2.840.114 [id number] Univers 11:15:49 12:04:16 Care Lisset Paige Health 350.1.13.10 ity of [place] 4.2.7.2.686 Mariano as Professio [phone] Co dical nal 044 [place] Office [facility] One 2021-03-08 2021-03-08 Ezra PAIGE [facility] [id number] Univers 11:20:00 11:20:00 LISSET ity of [facility] 2021-02-11 2021-02-11 Refgilma Branch [place] 1.2.840.114 [id number] Univers 00:00:00 00:00:00 Wondiful A Health 350.1.13.10 ity of [place] 4.2.7.2.686 Mariano as Professio [phone] Co dical nal 044 [facility] One 2021-02-04 2021-02-04 Sharlene Branch [place] 1.2.840.114 [id number] Univers 00:00:00 00:00:00 Wondiful A Health 350.1.13.10 ity of [place] 4.2.7.2.686 Mariano as Professio [phone] Co dical nal 044 [facility] One 2021-01-18 2021-01-18 Iris [facility] 1.2.840.114 [id number] Univers 00:00:00 00:00:00 Wondiful A Health 350.1.13.10 ity of [place] 4.2.7.2.686 Mariano as Professio [phone] Co dical nal 044 [facility] One 2021-01-18 2021-01-18 [place]ris [place] 1.2.840.114 [id number] Univers 00:00:00 00:00:00 Justice Gene [place] 350.1.13.10 ity of [place] 4.2.7.2.[place] Profess[place] [phone] Co dicwv nal 092 [facility] 2021-01-16 2021-01-16 Iris Branch [place] 1.2.840.114 [id number] Univers 00:00:00 00:00:00 Wondiful A Health 350.1.13.10 ity of [place] 4.2.7.2.686 Mariano as Professio [phone] Co dical nal 044 [facility] 2020-12-21 2020-12-21 Refgilma [facility] 1.2.840.114 [id number] Univers 00:00:00 00:00:00 Wondiful A Health 350.1.13.10 ity of [place] 4.2.7.2.686 Mariano as Professio [phone] [facility] [address] [place] [address] 2020-12-15 2020-12-15 Refgilma [facility] 1.2.840.114 [id number] Univers 00:00:00 00:00:00 W[facility] [id number] [facility]y of [place] [id number] [place] as Professio [phone] Co dical nal 044 [facility] 2020-04-20 2020-04-20 Office Sarina RUST 1.2.840.114 [id number] Univers 08:43:11 11:52:29 Visit Wondiful A [place] [id number] [id number] [phone] Co dical nal 044 [facility] 2020-04-20 2020-04-20 Mesh Man 2, Adc Lab RUST 1.2.840.114 [id number] Univers 09:17:40 09:32:40 Visit Rashawn Branchreinarex A [place] 350.1.13. 10 [id number] [phone] Co dichilario nal 353 [facility] 2020-04-20 2020-04-20 Outpatient Rolo BRANCH [facility] [id number] Univers 08:30:00 08:30:00 WONDIFUL ity o f [facility] 2020-01-16 2020-01-16 Outpatient JUSTICE FREITAS [facility] [id number] Univers 14:20:00 14:20:00 JUSTICE GRANDE [facility] 2019-12-03 2019-12-03 Outpatient VIDHYA MCRAE [facility] [id number] Univers 15:00:00 15:00:00 [facility] 2019-11-27 [facility] 1.2.840.114 [id number] Univers 00:00:00 00:00:00 [facility] [id number] ity of [place] [id number] [place] as Professio [phone] [facility] 044 [facility] 2019-11-18 2019-11-18 Office Christiane RUST 1.2.840.114 [id number] Univers 15:46:10 16:35:06 Visit Justice Stephen [place] [id number] [id number] [phone] [facility] 092 [facility] 2019-11-18 2019-11-18 Outpatient R JUSTICE GRANDE [facility] [id number] Univers 16:20:00 16:20:00 JUSTICE GR[facility] 2019-10-30 2019-10-30 [facility] [id number] Univers 00:00:00 00:00:00 [facility] 350.1.13.10 [facility] [place] 4.2.7.2.686 Mariano as Professio [phone] [address] 2019-10-29 2019-10-29 Letter [facility] [id number] Univers 00:00:00 00:00:00 (Out) [facility] 350.1.13.10 [facility] [place] 4.2.7.2.686 Mariano as Professio [phone] [address] 2019-10-21 2019-10-21 Office [facility] 1.2.840.114 [id number] Univers 08:13:54 09:07:05 Visit [facility] 350.1.13.10 [facility] [place] 4.2.7.2.686 Mairano as Professio [phone] [address] Office Building One 2019-05-27 2019-05-27 Office JEMAL Scruggs 1.2.840.114 [id number] Univers 16:20:12 16:44:47 Visit [facility] 350.1.13.10 i ty of [place] 4.2.7.2.686 Mariano as Luis [phone] Me dical nal 044 [facility] One 2019-05-27 2019-05-27 Orders Doctor GARETH 1.2.840.114 [id number] Univers 00:00:00 00:00:00 Only Unassigned, TITA 350.1.13.10 ity of [place] [facility] 4.2.7.2.686 Mariano as [phone] [address] 2016-03-21 2016-03-23 Inpatient [facility] [id number] Memoria 00:02:00 21:45:00 [facility] 00 [facility] 2016-03-21 2016-03-23 Inpatient [facility] [id number] Memoria 00:02:00 21:45:[address] 2016-03-20 2016-03-23 Outpatient Tony, [facility] [id number] 19:02:00 16:45:00 Yared 00 Ahmed Results Test Description Test Time Test Comments Results Result Comments Source TROPONIN I 2022-08-13 21:44:54 Test Item Value Reference Range Interpretation Comme nts TROPONIN I (test code = 0.003 ng/mL See_Comment [Au tomated message] The [id number]) system which ge nerated this result tra [...] biotin. Lab Interpretation Normal (test code = 30820-7) [facility]. METABOLIC PANEL ([id number])2022-08-13 21:34:31 Test Item Value Reference Range Interpretation Comments NA (test code = 131 mmol/L 135-145 L 9453739683) K (test code = 3.7 mmol/L 3.5-5.0 7672087312) CL (test code = 91 mmol/L 98-108 L 1127256211) CO2 TOTAL (test code = 31 mmol/L 23-31 7422666466) AGAP (test code = 2-16 4134503144) BUN (test code = 12 mg/dL 7-23 5863157720) GLUCOSE (test code = 131 mg/dL 70-110 H 9015196276) CREATININE (test code = 0.68 mg/dL 0.50-1.04 4869890030) TOTAL BILI (test code = 0.8 mg/dL 0.1-1.7 6582365059) CALCIUM (test code = 9.7 mg/dL 8.6-10.6 1481128830) T PROTEIN (test code = 8.0 g/dL 6.3-8.2 5407527392) ALBUMIN (test code = 4.6 g/dL 3.5-5.0 7843680395) ALK PHOS (test code = 100 U/L 34-122 8317395645) ALTv (test code = 31 U/L 5-35 1742-6) AST(SGOT) (test code = 38 U/L 13-40 1212431414) eGFR (test code = mL/min/1.73m2 8158494494) STACI (test code = STACI) Association of [...] tests). Lab Interpretation Abnormal (test code = 42043-2) [facility] 21[facility]:11 Test Item Value Reference Range Interpretation Comments LIPASE (test code = 2179014755) 192 U/L 0-220 Lab Interpretation (test code = Normal 26321-4) [facility] WITH [id number] 21:30:35 Test Item Value Reference Range Interpretation Comments WBC (test code = See_Comment [Automated 0823-2) message] The sy stem which generated this result transmitted reference range : 4.30 - 11.10 10*3/?L. The reference range was not used to interpret this result as normal/abnormal . RBC (test code = See_Comment [Automated 754-8) message] The sy stem which generated this [...] RDW-SD (test code = 39.8 fL 39.0-49.9 17391-3) RDW-CV (test code = 13.2 % 12.0-15.5 788-0) PLT (test code = See_Comment [Automated 777-3) message] The sy stem which generated this result transmitted reference range : 166 - 358 10*3/ ?L. The reference r adamaris was not used to interpret this result as normal/abnormal . MPV (test code = 11.3 fL 9.5-12.9 93984-9) NRBC/100 WBC (test See_Comment [Automat ed code = 1828169908) message] The system which generated this result transmitted reference range : 0.0 - 10.0 /100 WBCs. The refer ence range was not u sed to interpret th is result as normal/abnormal . NRBC x10^3 (test code See_Comment [Auto mated = 2487629535) message] The s ystem which generated this result transmitted reference range : 10*3/?L. The reference range was not used to interpret this result as normal/abnormal . GRAN MAT (NEUT) % 75.5 % (test code = 770-8) IMM GRAN % (test code 0.20 % = 5839328057) LYMPH % (test code = 17.0 % 736-9) MONO % (test code = 6.7 % 5905-5) EOS % (test code = 0.3 % 713-8) BASO % (test code = 0.3 % 706-2) GRAN MAT x10^3(ANC) 4.54 10*3/uL 1.88-7.09 (test code = 5366936930) IMM GRAN x10^3 (test 0.00-0.06 code = 9460283678) LYMPH x10^3 (test code 1.02 10*3/uL 1.32-3.29 L = 731-0) MONO x10^3 (test code 0.40 10*3/uL 0.33-0.92 = 742-7) EOS x10^3 (test code = 0.03-0.39 L 711-2) BASO x10^3 (test code 0.01-0.07 = 704-7) Lab Interpretation Abnormal (test code = 65711-2) [facility]. METABOLIC PANEL ([id number])2022-08-08 02:55:26 Test Item Value Reference Range Interpretation Comments NA (test code = 134 mmol/L 135-145 L 5188875716) K (test code = 3.7 mmol/L 3.5-5.0 9597014076) CL (test code = 98 mmol/L 98-108 5044956675) CO2 TOTAL (test code = 28 mmol/L 23-31 5662604273) AGAP (test code = 2-16 4198922872) BUN (test code = 10 mg/dL 7-23 3348691597) GLUCOSE (test code = 176 mg/dL 70-110 H 9964355377) CREATININE (test code = 0.66 mg/dL 0.50-1.04 5503567190) TOTAL BILI (test code = 0.6 mg/dL 0.1-1.6 4418128563) CALCIUM (test code = 8.8 mg/dL 8.6-10.6 4980829129) T PROTEIN (test code = 7.1 g/dL 6.3-8.2 9956405380) ALBUMIN (test code = 4.1 g/dL 3.5-5.0 0438677978) ALK PHOS (test code = 90 U/L 34-122 9567424038) ALTv (test code = 26 U/L 5-35 1742-6) AST(SGOT) (test code = 28 U/L 13-40 2040600838) eGFR (test code = mL/min/1.73m2 1340881781) STACI (test code = STACI) Association of [...] tests). Lab Interpretation Abnormal (test code = 45852-4) [facility] [id number] 02:13:42 Test Item Value Reference Interpretation Comments Range TROPONIN I (test 0.008 ng/mL See_Comment [Automated code = 3464152332) message] The system which generated this result [...] biotin. Lab Interpretation Normal (test code = 29733-4) [facility] [id number] 02:10:43 Test Item Value Reference Range Interpretation Comments NT-proBNP (test code 66 pg/mL See_Comment [Autom ated = 8485588044) message] The system which generated this result transmitted reference range : <=125. The reference range was not used to interpret this result as normal/abnormal . STACI (test code = STACI) Biotin has been reported to cause a negative bias, interpret results relative to patient's use of biotin. Lab Interpretation Normal (test code = 42292-8) [facility] 02:01:44 Test Item Value Reference Range Interpretation Comments LIPASE (test code = 7763813860) 121 U/L 0-220 Lab Interpretation (test code = Normal 34128-0) [facility] THRM[facility]AS [id number] 02:00:02 Test Item Value Reference Range Interpretation Comments APTT Patient (test See_Comment [Automat ed code = 3173-2) message] The system which generated this result transmitted reference range : 23 - 38 Seconds . The reference range was not used to interpr et this result as normal/abnormal . STACI (test code = STACI) The RUST patient population mean normal value for aPTT is 30 seconds. Lab Interpretation Normal (test code = 64089-9) [facility] / [id number] 01:57:58 Test Item Value Reference Range Interpretation [...] tions. Lab Interpretation (test Normal code = 02507-2) [facility] WITH [id number] 01:40:59 Test Item Value Reference Range Interpretation Comments WBC (test code = See_Comment [Automated 2090-2) message] The sy stem which generated this result transmitted reference range : 4.30 - 11.10 10*3/?L. The reference range was not used to interpret this result as normal/abnormal . RBC (test code = See_Comment [Automated 799-8) message] The sy stem which generated this [...] RDW-SD (test code = 39.4 fL 39.0-49.9 93013-0) RDW-CV (test code = 13.2 % 12.0-15.5 788-0) PLT (test code = See_Comment [Automated 777-3) message] The sy stem which generated this result transmitted reference range : 166 - 358 10*3/ ?L. The reference r adamaris was not used to interpret this result as normal/abnormal . MPV (test code = 11.1 fL 9.5-12.9 50377-4) NRBC/100 WBC (test See_Comment [Automat ed code = 4789808004) message] The system which generated this result transmitted reference range : 0.0 - 10.0 /100 WBCs. The refer ence range was not u sed to interpret th is result as normal/abnormal . NRBC x10^3 (test code See_Comment [Auto mated = 7706218810) message] The s ystem which generated this result transmitted reference range : 10*3/?L. The reference range was not used to interpret this result as normal/abnormal . GRAN MAT (NEUT) % 73.9 % (test code = 770-8) IMM GRAN % (test code 0.30 % = 3639202819) LYMPH % (test code = 17.5 % 736-9) MONO % (test code = 7.4 % 5905-5) EOS % (test code = 0.3 % 713-8) BASO % (test code = 0.6 % 706-2) GRAN MAT x10^3(ANC) 5.34 10*3/uL 1.88-7.09 (test code = 1051828532) IMM GRAN x10^3 (test 0.00-0.06 code = 1808866734) LYMPH x10^3 (test code 1.26 10*3/uL 1.32-3.29 L = 731-0) MONO x10^3 (test code 0.53 10*3/uL 0.33-0.92 = 742-7) EOS x10^3 (test code = 0.03-0.39 L 711-2) BASO x10^3 (test code 0.04 10*3/uL 0.01-0.07 = 704-7) Lab Interpretation Abnormal (test code = 28188-0) [facility]2016-06-28 05:15:00 Test Item Value Reference Range Interpretation Comments Bili Indirect (test 0.9 See_Comment [Automa adele message] The code = Bili Indirect) system which generated this result tra nsmitted reference range : <=1.0. The reference r adamaris was not used to int erpret this result as normal/abnormal . [facility]2016-06-28 05:15:00 Test Item Value Reference Range Interpretation Comments Alk Phos (test code = Alk Phos) 128 39-136 [facility]2016-06-28 05:15:00 Test Item Value Reference Range Interpretation Comments Lipase Lvl (test code = Lipase Lvl) 76 73-393 [facility]2016-06-28 05:15:00 Test Item Value Reference Range Interpretation Comments ALT (test code = ALT) 90 See_Comment [Auto mated message] The system which ge nerated this result transmit adele reference range : <=65. The reference range was not used to interpr et this result as neena l/abnormal. [facility]2016-06-28 05:15:00 Test Item Value Reference Range Interpretation Comments A/G Ratio (test code = A/G Ratio) 0.6 0.7-1.6 [facility]2016-06-28 05:15:00 Test Item Value Reference Range Interpretation Comments ASPARTATE TRANSAMINASE 106 See_Comment [Aut omated message] (test code = ASPARTATE The s ystem which TRANSAMINASE) generated this result transmitted ref erence range: <=37. Th e reference range was not used to interpr et this result as normal/abnormal . [facility]2016-06-28 05:15:00 Test Item Value Reference Range Interpretation Comments Bili Direct (test code 0.1 See_Comment [Aut omated message] The = Bili Direct) system which generated this result tra nsmitted reference range : <=0.3. The reference r adamaris was not used to int erpret this result as neena l/abnormal. [facility]2016-06-28 05:15:00 Test Item Value Reference Range Interpretation Comments Globulin (test code = Globulin) 4.8 2.0-4.0 [facility]2016-06-28 05:15:00 Test Item Value Reference Range Interpretation Comments Albumin Lvl (test code = Albumin Lvl) 3.1 3.5-5.0 [facility]2016-06-28 05:15:00 Test Item Value Reference Range Interpretation Comments Bili Indirect (test 0.9 See_Comment [Automa adele message] The code = Bili Indirect) system which generated this result tra nsmitted reference range : <=1.0. The reference r adamaris was not used to int erpret this result as normal/abnormal . [facility]2016-06-28 05:15:00 Test Item Value Reference Range Interpretation Comments Alk Phos (test code = Alk Phos) 128 39-136 [facility]2016-06-28 05:15:00 Test Item Value Reference Range Interpretation Comments Bili Direct (test code 0.1 See_Comment [Aut omated message] The = Bili Direct) system which generated this result tra nsmitted reference range : <=0.3. The reference r adamaris was not used to int erpret this result as neena l/abnormal. [facility]2016-06-28 05:15:00 Test Item Value Reference Range Interpretation Comments Bili Total (test code = Bili Total) 1.0 0.2-1.3 [facility]2016-06-28 05:15:00 Test Item Value Reference Range Interpretation Comments Total Protein (test code = Total 7.9 6.4-8.4 Protein) [facility]2016-06-28 05:15:00 Test Item Value Reference Range Interpretation Comments Glucose Lvl (test code = Glucose Lvl) 143 70-99 [facility]2016-06-28 05:15:00 Test Item Value Reference Range Interpretation Comments BUN (test code = BUN) 9 7-22 [facility]2016-06-28 05:15:00 Test Item Value Reference Range Interpretation Comments CO2 (test code = CO2) 28 24-32 [facility]2016-06-28 05:15:00 Test Item Value Reference Range Interpretation Comments Bili Total (test code = Bili Total) 1.0 0.2-1.3 [facility]2016-06-28 05:15:00 Test Item Value Reference Range Interpretation Comments Calcium Lvl (test code = Calcium Lvl) 8.3 8.5-10.5 [facility]2016-06-28 05:15:00 Test Item Value Reference Range Interpretation Comments Creatinine Lvl (test code = Creatinine 0.71 0.50-1.40 Lvl) [facility]2016-06-28 05:15:00 Test Item Value Reference Range Interpretation Comments Sodium Lvl (test code = Sodium Lvl) 133 135-145 [facility]2016-06-28 05:15:00 Test Item Value Reference Range Interpretation Comments Potassium Lvl (test code = Potassium 5.1 3.5-5.1 Lvl) [facility]2016-06-28 05:15:00 Test Item Value Reference Range Interpretation Comments Chloride Lvl (test code = Chloride Lvl) 100 95-109 [facility]2016-06-28 05:15:00 Test Item Value Reference Range Interpretation Comments eGFR (test code = eGFR) 89 [facility]2016-06-28 05:15:00 Test Item Value Reference Range Interpretation Comments AGAP (test code = AGAP) 10.1 10.0-20.0 [facility]woodTuqobfrAJQRWZTIID1661-80-21 05:15:00 Test Item Value Reference Range Interpretation Comments Basophils (test code = 0.2 See_Comment [Aut omated message] The Basophils) system which ge nerated this result tra nsmitted reference range : <=1.0. The reference r adamaris was not used to int erpret this result as normal/abnormal . [facility]woodEweumlrIWLPCVRGUH0216-38-08 05:15:00 Test Item Value Reference Range Interpretation Comments Eosinophils (test code = 0.1 See_Comment [A utomated message] The Eosinophils) system which ge nerated this result tra nsmitted reference range : <=4.0. The reference r adamaris was not used to int erpret this result as normal/abnormal . [facility]woodUjrcgbdRXUWKTLGHA3025-41-59 05:15:00 Test Item Value Reference Range Interpretation Comments Segs-Bands # (test code = Segs-Bands #) 8.3 1.5-8.1 [facility]2016-06-28 05:15:00 Test Item Value Reference Range Interpretation Comments Total Protein (test code = Total 7.9 6.4-8.4 Protein) [facility] KingwoodGrnalyyYDFJBAQOMK7383-50-46 05:15:00 Test Item Value Reference Range Interpretation Comments Lymphocytes # (test code = Lymphocytes 1.2 1.0-5.5 #) [facility]woodGaunzlrTSYPCKOATQ3763-61-90 05:15:00 Test Item Value Reference Range Interpretation Comments Monocytes # (test code 1.0 See_Comment [Aut omated message] The = Monocytes #) system which generated this result tra nsmitted reference range : <=0.8. The reference r adamaris was not used to int erpret this result as normal/abnormal . [facility]woodThjofhpJMBEFMSKHU8693-53-70 05:15:00 Test Item Value Reference Range Interpretation Comments Monocytes (test code = Monocytes) 9.7 2.0-12.0 [facility] KingwoodVdbunjiOKODXPAIMN1873-41-87 05:15:00 Test Item Value Reference Range Interpretation Comments Lymphocytes (test code = Lymphocytes) 11.1 20.0-40.0 [facility] KingwoodQxetvprAXDYLJOCWC7931-59-13 05:15:00 Test Item Value Reference Range Interpretation Comments Segs (test code = Segs) 78.9 45.0-75.0 [facility] KingwoodMkkadmyDHVEQWHOPJ5903-90-03 05:15:00 Test Item Value Reference Range Interpretation Comments MPV (test code = MPV) 9.7 7.4-10.4 [facility]woodIjjhtrgJDSLWGYDDZ5510-39-93 05:15:00 Test Item Value Reference Range Interpretation Comments MCV (test code = MCV) 83.4 80.0-98.0 [facility] KingwoodHnetbauNLYZGTNFDI6008-58-82 05:15:00 Test Item Value Reference Range Interpretation Comments RDW (test code = RDW) 13.3 11.5-14.5 [facility] KingwoodPwlskbdMPLLUTAOUQ5334-03-58 05:15:00 Test Item Value Reference Range Interpretation Comments MCHC (test code = MCHC) 33.6 32.0-36.0 [facility] KingwoodDbfygmnZHSRTKQJCH5359-13-97 05:15:00 Test Item Value Reference Range Interpretation Comments MCH (test code = MCH) 28.0 pg 27.0-31.0 [facility]2016-06-28 05:15:00 Test Item Value Reference Range Interpretation Comments Glucose Lvl (test code = Glucose Lvl) 143 70-99 [facility]woodPdylhjsBAPXYTUPDW2754-91-61 05:15:00 Test Item Value Reference Range Interpretation Comments Platelet (test code = Platelet) 262 133-450 [facility]woodQhwtqqbGLYXJHZRDA7134-03-93 05:15:00 Test Item Value Reference Range Interpretation Comments WBC (test code = WBC) 10.5 3.7-10.4 [facility] KingwoodKuddlvuCNODMZJNGD0778-95-51 05:15:00 Test Item Value Reference Range Interpretation Comments RBC (test code = RBC) 4.97 4.20-5.40 [facility] KingwoodIsjofwoRBWTFPSGYG8100-30-14 05:15:00 Test Item Value Reference Range Interpretation Comments Hgb (test code = Hgb) 13.9 12.0-16.0 [facility] KingwoodBytdufyQAOVIIGOCA9642-58-21 05:15:00 Test Item Value Reference Range Interpretation Comments Hct (test code = Hct) 41.4 36.0-48.0 [facility]2016-06-28 05:15:00 Test Item Value Reference Range Interpretation Comments BUN (test code = BUN) 9 7-22 [facility]2016-06-28 05:15:00 Test Item Value Reference Range Interpretation Comments CO2 (test code = CO2) 28 24-32 [facility]2016-06-28 05:15:00 Test Item Value Reference Range Interpretation Comments Lipase Lvl (test code = Lipase Lvl) 76 73-393 [facility]2016-06-28 05:15:00 Test Item Value Reference Range Interpretation Comments ALT (test code = ALT) 90 See_Comment [Auto mated message] The system which ge nerated this result transmit adele reference range : <=65. The reference range was not used to interpr et this result as neena l/abnormal. [facility]2016-06-28 05:15:00 Test Item Value Reference Range Interpretation Comments A/G Ratio (test code = A/G Ratio) 0.6 0.7-1.6 [facility]2016-06-28 05:15:00 Test Item Value Reference Range Interpretation Comments ASPARTATE TRANSAMINASE 106 See_Comment [Aut omated message] (test code = ASPARTATE The s ystem which TRANSAMINASE) generated this result transmitted ref erence range: <=37. Th e reference range was not used to interpr et this result as normal/abnormal . [facility]2016-06-28 05:15:00 Test Item Value Reference Range Interpretation Comments Globulin (test code = Globulin) 4.8 2.0-4.0 [facility]2016-06-28 05:15:00 Test Item Value Reference Range Interpretation Comments Albumin Lvl (test code = Albumin Lvl) 3.1 3.5-5.0 [facility]2016-06-28 05:15:00 Test Item Value Reference Range Interpretation Comments Bili Indirect (test 0.9 See_Comment [Automa adele message] The code = Bili Indirect) system which generated this result tra nsmitted reference range : <=1.0. The reference r adamaris was not used to int erpret this result as normal/abnormal . [facility]2016-06-28 05:15:00 Test Item Value Reference Range Interpretation Comments Alk Phos (test code = Alk Phos) 128 39-136 [facility]2016-06-28 05:15:00 Test Item Value Reference Range Interpretation Comments Calcium Lvl (test code = Calcium Lvl) 8.3 8.5-10.5 [facility]2016-06-28 05:15:00 Test Item Value Reference Range Interpretation Comments Bili Direct (test code 0.1 See_Comment [Aut omated message] The = Bili Direct) system which generated this result tra nsmitted reference range : <=0.3. The reference r adamaris was not used to int erpret this result as neena l/abnormal. [facility]2016-06-28 05:15:00 Test Item Value Reference Range Interpretation Comments Bili Total (test code = Bili Total) 1.0 0.2-1.3 [facility]2016-06-28 05:15:00 Test Item Value Reference Range Interpretation Comments Total Protein (test code = Total 7.9 6.4-8.4 Protein) [facility]2016-06-28 05:15:00 Test Item Value Reference Range Interpretation Comments Glucose Lvl (test code = Glucose Lvl) 143 70-99 [facility]2016-06-28 05:15:00 Test Item Value Reference Range Interpretation Comments BUN (test code = BUN) 9 7-22 [facility]2016-06-28 05:15:00 Test Item Value Reference Range Interpretation Comments CO2 (test code = CO2) 28 24-32 [facility]2016-06-28 05:15:00 Test Item Value Reference Range Interpretation Comments Calcium Lvl (test code = Calcium Lvl) 8.3 8.5-10.5 [facility]2016-06-28 05:15:00 Test Item Value Reference Range Interpretation Comments Creatinine Lvl (test code = Creatinine 0.71 0.50-1.40 Lvl) [facility]2016-06-28 05:15:00 Test Item Value Reference Range Interpretation Comments Sodium Lvl (test code = Sodium Lvl) 133 135-145 [facility]2016-06-28 05:15:00 Test Item Value Reference Range Interpretation Comments Potassium Lvl (test code = Potassium 5.1 3.5-5.1 Lvl) [facility]2016-06-28 05:15:00 Test Item Value Reference Range Interpretation Comments Creatinine Lvl (test code = Creatinine 0.71 0.50-1.40 Lvl) [facility]2016-06-28 05:15:00 Test Item Value Reference Range Interpretation Comments Chloride Lvl (test code = Chloride Lvl) 100 95-109 [facility]2016-06-28 05:15:00 Test Item Value Reference Range Interpretation Comments eGFR (test code = eGFR) 89 [facility] [facility] 05:15:00 Test Item Value Reference Range Interpretation Comments AGAP (test code = AGAP) 10.1 10.0-20.0 [facility]:15:00 Test Item Value Reference Range Interpretation Comments Basophils (test code = 0.2 See_Comment [Aut omated message] The Basophils) system which ge nerated this result tra nsmitted reference range : <=1.0. The reference r adamaris was not used to int erpret this result as normal/abnormal . [facility]woodTtcientZMRUEAMZPS7251-32-46 05:15:00 Test Item Value Reference Range Interpretation Comments Eosinophils (test code = 0.1 See_Comment [A utomated message] The Eosinophils) system which ge nerated this result tra nsmitted reference range : <=4.0. The reference r adamaris was not used to int erpret this result as normal/abnormal . [facility]woodNmstxjmFCUKFEOGGP2994-90-63 05:15:00 Test Item Value Reference Range Interpretation Comments Segs-Bands # (test code = Segs-Bands #) 8.3 1.5-8.1 [facility]woodVnoxnmyZSQOVRMANP4339-41-72 05:15:00 Test Item Value Reference Range Interpretation Comments Lymphocytes # (test code = Lymphocytes 1.2 1.0-5.5 #) [facility]woodQdqfyvfTLYQGXBRKJ6609-17-06 05:15:00 Test Item Value Reference Range Interpretation Comments Monocytes # (test code 1.0 See_Comment [Aut omated message] The = Monocytes #) system which generated this result tra nsmitted reference range : <=0.8. The reference r adamaris was not used to int erpret this result as normal/abnormal . [facility]woodAmzdegoODLAOCSFUW3976-99-84 05:15:00 Test Item Value Reference Range Interpretation Comments Monocytes (test code = Monocytes) 9.7 2.0-12.0 [facility]woodRbflwecHSXCSRJZJI7074-61-16 05:15:00 Test Item Value Reference Range Interpretation Comments Lymphocytes (test code = Lymphocytes) 11.1 20.0-40.0 [facility]2016-06-28 05:15:00 Test Item Value Reference Range Interpretation Comments Sodium Lvl (test code = Sodium Lvl) 133 135-145 [facility]woodGdfqgkoJNHYHHNTOI0170-15-86 05:15:00 Test Item Value Reference Range Interpretation Comments Segs (test code = Segs) 78.9 45.0-75.0 [facility] KingwoodEmwkzmbIPDUIPMYHU7301-87-06 05:15:00 Test Item Value Reference Range Interpretation Comments MPV (test code = MPV) 9.7 7.4-10.4 [facility] KingwoodSojmeqsHBWGFILSOJ7429-30-00 05:15:00 Test Item Value Reference Range Interpretation Comments MCV (test code = MCV) 83.4 80.0-98.0 [facility]woodCndpkexFVRGUYRGYH4746-36-83 05:15:00 Test Item Value Reference Range Interpretation Comments RDW (test code = RDW) 13.3 11.5-14.5 [facility] KingwoodIetjasjMPYBFOQDXB2663-44-22 05:15:00 Test Item Value Reference Range Interpretation Comments MCHC (test code = MCHC) 33.6 32.0-36.0 [facility]woodPxxyeoiPMYYRXTSXQ0835-24-43 05:15:00 Test Item Value Reference Range Interpretation Comments MCH (test code = MCH) 28.0 pg 27.0-31.0 [facility] KingwoodMoztzkwQAJTJTXYSX6275-28-75 05:15:00 Test Item Value Reference Range Interpretation Comments Platelet (test code = Platelet) 262 133-450 [facility] KingwoodTxqamndVXGRYHJYLH1282-75-65 05:15:00 Test Item Value Reference Range Interpretation Comments WBC (test code = WBC) 10.5 3.7-10.4 [facility]woodCzbppptOOIFINWGZM6065-13-28 05:15:00 Test Item Value Reference Range Interpretation Comments RBC (test code = RBC) 4.97 4.20-5.40 [facility]woodVxzirxwAEISIKXQKN8012-87-76 05:15:00 Test Item Value Reference Range Interpretation Comments Hgb (test code = Hgb) 13.9 12.0-16.0 [facility]2016-06-28 05:15:00 Test Item Value Reference Range Interpretation Comments Potassium Lvl (test code = Potassium 5.1 3.5-5.1 Lvl) [facility]woodAacfpelCXKHVOLPCI3850-03-44 05:15:00 Test Item Value Reference Range Interpretation Comments Hct (test code = Hct) 41.4 36.0-48.0 [facility]2016-06-28 05:15:00 Test Item Value Reference Range Interpretation Comments Chloride Lvl (test code = Chloride Lvl) 100 95-109 [facility]2016-06-28 05:15:00 Test Item Value Reference Range Interpretation Comments Lipase Lvl (test code = Lipase Lvl) 76 39-393 [facility]2016-06-28 05:15:00 Test Item Value Reference Range Interpretation Comments ALT (test code = ALT) 90 See_Comment [Auto mated message] The system which ge nerated this result transmit adele reference range : <=65. The reference range was not used to interpr et this result as neena l/abnormal. [facility]2016-06-28 05:15:00 Test Item Value Reference Range Interpretation Comments eGFR (test code = eGFR) 89 [facility]2016-06-28 05:15:00 Test Item Value Reference Range Interpretation Comments A/G Ratio (test code = A/G Ratio) 0.6 0.7-1.6 [place] 659086-06-28 05:15:00 Test Item Value Reference Range Interpretation Comments ASPARTATE TRANSAMINASE 106 See_Comment [Aut omated message] (test code = ASPARTATE The s ystem which TRANSAMINASE) generated this result transmitted ref erence range: <=37. Th e reference range was not used to interpr et this result as normal/abnormal . [facility]2016-06-28 05:15:00 Test Item Value Reference Range Interpretation Comments Globulin (test code = Globulin) 4.8 2.0-4.0 [facility]2016-06-28 05:15:00 Test Item Value Reference Range Interpretation Comments Albumin Lvl (test code = Albumin Lvl) 3.1 3.5-5.0 [facility]2016-06-28 05:15:00 Test Item Value Reference Range Interpretation Comments Bili Indirect (test 0.9 See_Comment [Automa adele message] The code = Bili Indirect) system which generated this result tra nsmitted reference range : <=1.0. The reference r adamaris was not used to int erpret this result as normal/abnormal . [facility]2016-06-28 05:15:00 Test Item Value Reference Range Interpretation Comments Alk Phos (test code = Alk Phos) 128 39-136 [facility]2016-06-28 05:15:00 Test Item Value Reference Range Interpretation Comments Bili Direct (test code 0.1 See_Comment [Aut omated message] The = Bili Direct) system which generated this result tra nsmitted reference range : <=0.3. The reference r adamaris was not used to int erpret this result as neena l/abnormal. [facility]2016-06-28 05:15:00 Test Item Value Reference Range Interpretation Comments Bili Total (test code = Bili Total) 1.0 0.2-1.3 [facility]2016-06-28 05:15:00 Test Item Value Reference Range Interpretation Comments Total Protein (test code = Total 7.9 6.4-8.4 Protein) [facility]2016-06-28 05:15:00 Test Item Value Reference Range Interpretation Comments Glucose Lvl (test code = Glucose Lvl) 143 70-99 [facility]2016-06-28 05:15:00 Test Item Value Reference Range Interpretation Comments AGAP (test code = AGAP) 10.1 10.0-20.0 [facility]2016-06-28 05:15:00 Test Item Value Reference Range Interpretation Comments BUN (test code = BUN) 9 7-22 [facility]2016-06-28 05:15:00 Test Item Value Reference Range Interpretation Comments CO2 (test code = CO2) 28 24-32 [facility]2016-06-28 05:15:00 Test Item Value Reference Range Interpretation Comments Calcium Lvl (test code = Calcium Lvl) 8.3 8.5-10.5 [facility]2016-06-28 05:15:00 Test Item Value Reference Range Interpretation Comments Creatinine Lvl (test code = Creatinine 0.71 0.50-1.40 Lvl) [facility]2016-06-28 05:15:00 Test Item Value Reference Range Interpretation Comments Sodium Lvl (test code = Sodium Lvl) 133 135-145 [facility]2016-06-28 05:15:00 Test Item Value Reference Range Interpretation Comments Potassium Lvl (test code = Potassium 5.1 3.5-5.1 Lvl) [facility]2016-06-28 05:15:00 Test Item Value Reference Range Interpretation Comments Chloride Lvl (test code = Chloride Lvl) 100 95-109 [facility]2016-06-28 05:15:00 Test Item Value Reference Range Interpretation Comments eGFR (test code = eGFR) 89 [place] 659086-06-28 05:15:00 Test Item Value Reference Range Interpretation Comments AGAP (test code = AGAP) 10.1 10.0-20.0 [facility]woodAcrojymCCVFYYLHTK2487-92-56 05:15:00 Test Item Value Reference Range Interpretation Comments Basophils (test code = 0.2 See_Comment [Aut omated message] The Basophils) system which ge nerated this result tra nsmitted reference range : <=1.0. The reference r adamaris was not used to int erpret this result as normal/abnormal . [facility]woodGtjpejmGDEHQIWCYW2440-37-36 05:15:00 Test Item Value Reference Range Interpretation Comments Basophils (test code = 0.2 See_Comment [Aut omated message] The Basophils) system which ge nerated this result tra nsmitted reference range : <=1.0. The reference r adamaris was not used to int erpret this result as normal/abnormal . [facility]woodMmooxjvDCMPIMWXWK9416-33-69 05:15:00 Test Item Value Reference Range Interpretation Comments Eosinophils (test code = 0.1 See_Comment [A utomated message] The Eosinophils) system which ge nerated this result tra nsmitted reference range : <=4.0. The reference r adamaris was not used to int erpret this result as normal/abnormal . [facility]woodKlmvkfoOPUSIDOWBT6294-02-90 05:15:00 Test Item Value Reference Range Interpretation Comments Segs-Bands # (test code = Segs-Bands #) 8.3 1.5-8.1 [facility] KingwoodBaxenljXUFCTVOOKY1348-75-14 05:15:00 Test Item Value Reference Range Interpretation Comments Lymphocytes # (test code = Lymphocytes 1.2 1.0-5.5 #) [facility]woodSxdvqakCEBMFOWIKT0603-33-50 05:15:00 Test Item Value Reference Range Interpretation Comments Monocytes # (test code 1.0 See_Comment [Aut omated message] The = Monocytes #) system which generated this result tra nsmitted reference range : <=0.8. The reference r adamaris was not used to int erpret this result as normal/abnormal . [facility] KingwoodFykpdjwLUREADCUFQ8214-55-75 05:15:00 Test Item Value Reference Range Interpretation Comments Monocytes (test code = Monocytes) 9.7 2.0-12.0 [facility]woodHzyjyoiVSFJITNLHS5819-44-34 05:15:00 Test Item Value Reference Range Interpretation Comments Lymphocytes (test code = Lymphocytes) 11.1 20.0-40.0 [facility] KingwoodLjhlmugPANGLADXTT3096-61-44 05:15:00 Test Item Value Reference Range Interpretation Comments Segs (test code = Segs) 78.9 45.0-75.0 [facility]woodXgqjswoYQSTSVVXOJ6983-63-64 05:15:00 Test Item Value Reference Range Interpretation Comments MPV (test code = MPV) 9.7 7.4-10.4 [facility] KingwoodZcvjeoyGZQXCNIKEE6991-53-51 05:15:00 Test Item Value Reference Range Interpretation Comments MCV (test code = MCV) 83.4 80.0-98.0 [facility]woodMokmbsnPNADMZEMPM9390-47-16 05:15:00 Test Item Value Reference Range Interpretation Comments RDW (test code = RDW) 13.3 11.5-14.5 [facility] KingwoodExarvfzBUFACTSZZK7265-93-55 05:15:00 Test Item Value Reference Range Interpretation Comments Eosinophils (test code = 0.1 See_Comment [A utomated message] The Eosinophils) system which ge nerated this result tra nsmitted reference range : <=4.0. The reference r adamaris was not used to int erpret this result as normal/abnormal . [facility]woodQwjwzpiDOGAMTUNDS7782-94-46 05:15:00 Test Item Value Reference Range Interpretation Comments MCHC (test code = MCHC) 33.6 32.0-36.0 [facility]woodEizlhciUSGWATGVDJ8150-84-74 05:15:00 Test Item Value Reference Range Interpretation Comments MCH (test code = MCH) 28.0 pg 27.0-31.0 [facility]woodKvrxqwqYMHWRXUUWO4412-73-27 05:15:00 Test Item Value Reference Range Interpretation Comments Platelet (test code = Platelet) 262 133-450 [facility] KingwoodBwbvervJORHEQSJNX4441-21-79 05:15:00 Test Item Value Reference Range Interpretation Comments WBC (test code = WBC) 10.5 3.7-10.4 [facility] KingwoodYznumjdBVECTMCBZO9365-60-34 05:15:00 Test Item Value Reference Range Interpretation Comments RBC (test code = RBC) 4.97 4.20-5.40 [facility] KingwoodTzpgihaDDNAXIXHRE2138-41-95 05:15:00 Test Item Value Reference Range Interpretation Comments Hgb (test code = Hgb) 13.9 12.0-16.0 [facility] KingwoodZxtfwixNBKCXQHONG0354-02-63 05:15:00 Test Item Value Reference Range Interpretation Comments Hct (test code = Hct) 41.4 36.0-48.0 [facility] KingwoodFdpdwiyQIIDVWPEPM6481-28-53 05:15:00 Test Item Value Reference Range Interpretation Comments Segs-Bands # (test code = Segs-Bands #) 8.3 1.5-8.1 [facility] KingwoodYhpyaayAADSKZVZUW0307-28-52 05:15:00 Test Item Value Reference Range Interpretation Comments Lymphocytes # (test code = Lymphocytes 1.2 1.0-5.5 #) [facility] KingwoodWsxqkenUZASPBJOGZ7274-91-34 05:15:00 Test Item Value Reference Range Interpretation Comments Monocytes # (test code 1.0 See_Comment [Aut omated message] The = Monocytes #) system which generated this result tra nsmitted reference range : <=0.8. The reference r adamaris was not used to int erpret this result as normal/abnormal . [facility] KingwoodAyygbjjTVDLJDYQCN2492-98-58 05:15:00 Test Item Value Reference Range Interpretation Comments Monocytes (test code = Monocytes) 9.7 2.0-12.0 [facility] KingwoodSenrnagWULLJUVWDT4386-24-58 05:15:00 Test Item Value Reference Range Interpretation Comments Lymphocytes (test code = Lymphocytes) 11.1 20.0-40.0 [facility] KingwoodRbgpbcqRGUFCJYOZB8559-86-55 05:15:00 Test Item Value Reference Range Interpretation Comments Segs (test code = Segs) 78.9 45.0-75.0 [facility] KingwoodIvfonocUFFKGMYMSQ1839-47-45 05:15:00 Test Item Value Reference Range Interpretation Comments MPV (test code = MPV) 9.7 7.4-10.4 [facility]woodImknicyTZGUQPSCYT7317-41-58 05:15:00 Test Item Value Reference Range Interpretation Comments MCV (test code = MCV) 83.4 80.0-98.0 [facility]woodKrytrfhPEARUXZECF7016-42-66 05:15:00 Test Item Value Reference Range Interpretation Comments RDW (test code = RDW) 13.3 11.5-14.5 [facility] KingwoodVhjlunnIBXDIOVWAM5444-08-87 05:15:00 Test Item Value Reference Range Interpretation Comments MCHC (test code = MCHC) 33.6 32.0-36.0 [facility] KingwoodIlwhvevRHLBIUWYCE8065-76-33 05:15:00 Test Item Value Reference Range Interpretation Comments MCH (test code = MCH) 28.0 pg 27.0-31.0 [facility] KingwoodVktucjsUBAMKPDBAQ8336-35-46 05:15:00 Test Item Value Reference Range Interpretation Comments Platelet (test code = Platelet) 262 133-450 [facility] KingwoodRzhgoknRBMSZHAWKX3677-51-57 05:15:00 Test Item Value Reference Range Interpretation Comments WBC (test code = WBC) 10.5 3.7-10.4 [facility]2016-06-28 05:15:00 Test Item Value Reference Range Interpretation Comments Lipase Lvl (test code = Lipase Lvl) 76 91-577 [facility] KingwoodLkeavmvXXUVXKONFT6297-54-77 05:15:00 Test Item Value Reference Range Interpretation Comments RBC (test code = RBC) 4.97 4.20-5.40 [facility] KingwoodYwtimadRTDDSZOVIQ5922-76-51 05:15:00 Test Item Value Reference Range Interpretation Comments Hgb (test code = Hgb) 13.9 12.0-16.0 [facility] KingwoodVjrhrzvMMATZDAUBM8770-29-13 05:15:00 Test Item Value Reference Range Interpretation Comments Hct (test code = Hct) 41.4 36.0-48.0 [facility]2016-06-28 05:15:00 Test Item Value Reference Range Interpretation Comments ALT (test code = ALT) 90 See_Comment [Auto mated message] The system which ge nerated this result transmit adele reference range : <=65. The reference range was not used to interpr et this result as neena l/abnormal. [facility]2016-06-28 05:15:00 Test Item Value Reference Range Interpretation Comments A/G Ratio (test code = A/G Ratio) 0.6 0.7-1.6 [facility]2016-06-28 05:15:00 Test Item Value Reference Range Interpretation Comments Lipase Lvl (test code = Lipase Lvl) 76 85-447 [facility]2016-06-28 05:15:00 Test Item Value Reference Range Interpretation Comments ALT (test code = ALT) 90 See_Comment [Auto mated message] The system which ge nerated this result transmit adele reference range : <=65. The reference range was not used to interpr et this result as neena l/abnormal. [facility]2016-06-28 05:15:00 Test Item Value Reference Range Interpretation Comments A/G Ratio (test code = A/G Ratio) 0.6 0.7-1.6 [facility]2016-06-28 05:15:00 Test Item Value Reference Range Interpretation Comments ASPARTATE TRANSAMINASE 106 See_Comment [Aut omated message] (test code = ASPARTATE The s ystem which TRANSAMINASE) generated this result transmitted ref erence range: <=37. Th e reference range was not used to interpr et this result as normal/abnormal . [facility]2016-06-28 05:15:00 Test Item Value Reference Range Interpretation Comments Globulin (test code = Globulin) 4.8 2.0-4.0 [facility]2016-06-28 05:15:00 Test Item Value Reference Range Interpretation Comments Albumin Lvl (test code = Albumin Lvl) 3.1 3.5-5.0 [facility]2016-06-28 05:15:00 Test Item Value Reference Range Interpretation Comments Bili Indirect (test 0.9 See_Comment [Automa adele message] The code = Bili Indirect) system which generated this result tra nsmitted reference range : <=1.0. The reference r adamaris was not used to int erpret this result as normal/abnormal . [facility]2016-06-28 05:15:00 Test Item Value Reference Range Interpretation Comments Alk Phos (test code = Alk Phos) 128 39-136 [facility]2016-06-28 05:15:00 Test Item Value Reference Range Interpretation Comments Bili Direct (test code 0.1 See_Comment [Aut omated message] The = Bili Direct) system which generated this result tra nsmitted reference range : <=0.3. The reference r adamaris was not used to int erpret this result as neena l/abnormal. [facility]2016-06-28 05:15:00 Test Item Value Reference Range Interpretation Comments Bili Total (test code = Bili Total) 1.0 0.2-1.3 [place] 659086-06-28 05:15:00 Test Item Value Reference Range Interpretation Comments ASPARTATE TRANSAMINASE 106 See_Comment [Aut omated message] (test code = ASPARTATE The s ystem which TRANSAMINASE) generated this result transmitted ref erence range: <=37. Th e reference range was not used to interpr et this result as normal/abnormal . [facility]2016-06-28 05:15:00 Test Item Value Reference Range Interpretation Comments Total Protein (test code = Total 7.9 6.4-8.4 Protein) [facility]2016-06-28 05:15:00 Test Item Value Reference Range Interpretation Comments Glucose Lvl (test code = Glucose Lvl) 143 70-99 [facility]2016-06-28 05:15:00 Test Item Value Reference Range Interpretation Comments BUN (test code = BUN) 9 7-22 [facility]2016-06-28 05:15:00 Test Item Value Reference Range Interpretation Comments CO2 (test code = CO2) 28 24-32 [facility]2016-06-28 05:15:00 Test Item Value Reference Range Interpretation Comments Calcium Lvl (test code = Calcium Lvl) 8.3 8.5-10.5 [facility]2016-06-28 05:15:00 Test Item Value Reference Range Interpretation Comments Creatinine Lvl (test code = Creatinine 0.71 0.50-1.40 Lvl) [facility]2016-06-28 05:15:00 Test Item Value Reference Range Interpretation Comments Sodium Lvl (test code = Sodium Lvl) 133 135-145 [facility]2016-06-28 05:15:00 Test Item Value Reference Range Interpretation Comments Potassium Lvl (test code = Potassium 5.1 3.5-5.1 Lvl) [facility]2016-06-28 05:15:00 Test Item Value Reference Range Interpretation Comments Chloride Lvl (test code = Chloride Lvl) 100 95-109 [facility]2016-06-28 05:15:00 Test Item Value Reference Range Interpretation Comments eGFR (test code = eGFR) 89 [facility]2016-06-28 05:15:00 Test Item Value Reference Range Interpretation Comments Globulin (test code = Globulin) 4.8 2.0-4.0 [place] 659086-06-28 05:15:00 Test Item Value Reference Range Interpretation Comments AGAP (test code = AGAP) 10.1 10.0-20.0 [facility]woodBmxcwdbZXTTSHXWPX3039-97-29 05:15:00 Test Item Value Reference Range Interpretation Comments Basophils (test code = 0.2 See_Comment [Aut omated message] The Basophils) system which ge nerated this result tra nsmitted reference range : <=1.0. The reference r adamaris was not used to int erpret this result as normal/abnormal . [facility] KingwoodDanvhodMPYOMYFCOS9601-59-02 05:15:00 Test Item Value Reference Range Interpretation Comments Eosinophils (test code = 0.1 See_Comment [A utomated message] The Eosinophils) system which ge nerated this result tra nsmitted reference range : <=4.0. The reference r adamaris was not used to int erpret this result as normal/abnormal . [facility]woodBvpdgccHHXUFNKNJH7151-23-15 05:15:00 Test Item Value Reference Range Interpretation Comments Segs-Bands # (test code = Segs-Bands #) 8.3 1.5-8.1 [facility]woodVrwbjvmJYCZVHAWQR4823-57-37 05:15:00 Test Item Value Reference Range Interpretation Comments Lymphocytes # (test code = Lymphocytes 1.2 1.0-5.5 #) [facility] KingwoodVtncmlySNOWSEGLYV0951-95-36 05:15:00 Test Item Value Reference Range Interpretation Comments Monocytes # (test code 1.0 See_Comment [Aut omated message] The = Monocytes #) system which generated this result tra nsmitted reference range : <=0.8. The reference r adamaris was not used to int erpret this result as normal/abnormal . [facility]woodWdjfkptFOLJSMVGDO3692-10-99 05:15:00 Test Item Value Reference Range Interpretation Comments Monocytes (test code = Monocytes) 9.7 2.0-12.0 [facility] KingwoodNokixzoKNQXLQKCOT3502-18-94 05:15:00 Test Item Value Reference Range Interpretation Comments Lymphocytes (test code = Lymphocytes) 11.1 20.0-40.0 [facility] KingwoodOrxkpveREAIPJJCSM9404-07-74 05:15:00 Test Item Value Reference Range Interpretation Comments Segs (test code = Segs) 78.9 45.0-75.0 [facility] KingwoodTzjgktvJROKSSXPDR1809-30-31 05:15:00 Test Item Value Reference Range Interpretation Comments MPV (test code = MPV) 9.7 7.4-10.4 [facility]2016-06-28 05:15:00 Test Item Value Reference Range Interpretation Comments Albumin Lvl (test code = Albumin Lvl) 3.1 3.5-5.0 [facility]jCHQDJYHJKG0332-58-66 05:15:00 Test Item Value Reference Range Interpretation Comments MCV (test code = MCV) 83.4 80.0-98.0 [id number] 05:15:00 Test Item Value Reference Range Interpretation Comments RDW (test code = RDW) 13.3 11.5-14.5 [facility]woodEtdhesaARLQCCQETJ6966-05-15 05:15:00 Test Item Value Reference Range Interpretation Comments MCHC (test code = MCHC) 33.6 32.0-36.0 [facility]woodVfiuaxlUKYYQXJPNF4738-14-56 05:15:00 Test Item Value Reference Range Interpretation Comments MCH (test code = MCH) 28.0 pg 27.0-31.0 [facility]2016-06-28 05:15:00 Test Item Value Reference Range Interpretation Comments Lipase Lvl (test code = Lipase Lvl) 76 73-393 [facility]2016-06-28 05:15:00 Test Item Value Reference Range Interpretation Comments ALT (test code = ALT) 90 See_Comment [Auto mated message] The system which ge nerated this result transmit adele reference range : <=65. The reference range was not used to interpr et this result as neena l/abnormal. [facility]woodSkuotdvTYEMGBZZWM9611-33-42 05:15:00 Test Item Value Reference Range Interpretation Comments Platelet (test code = Platelet) 262 133-450 [facility]2016-06-28 05:15:00 Test Item Value Reference Range Interpretation Comments A/G Ratio (test code = A/G Ratio) 0.6 0.7-1.6 [facility]2016-06-28 05:15:00 Test Item Value Reference Range Interpretation Comments ASPARTATE TRANSAMINASE 106 See_Comment [Aut omated message] (test code = ASPARTATE The s ystem which TRANSAMINASE) generated this result transmitted ref erence range: <=37. Th e reference range was not used to interpr et this result as normal/abnormal . [facility]2016-06-28 05:15:00 Test Item Value Reference Range Interpretation Comments Globulin (test code = Globulin) 4.8 2.0-4.0 [facility]2016-06-28 05:15:00 Test Item Value Reference Range Interpretation Comments Albumin Lvl (test code = Albumin Lvl) 3.1 3.5-5.0 [facility]2016-06-28 05:15:00 Test Item Value Reference Range Interpretation Comments Bili Indirect (test 0.9 See_Comment [Automa adele message] The code = Bili Indirect) system which generated this result tra nsmitted reference range : <=1.0. The reference r adamaris was not used to int erpret this result as normal/abnormal . [facility]2016-06-28 05:15:00 Test Item Value Reference Range Interpretation Comments Alk Phos (test code = Alk Phos) 128 39-136 [facility]2016-06-28 05:15:00 Test Item Value Reference Range Interpretation Comments Bili Direct (test code 0.1 See_Comment [Aut omated message] The = Bili Direct) system which generated this result tra nsmitted reference range : <=0.3. The reference r adamaris was not used to int erpret this result as neena l/abnormal. [facility]2016-06-28 05:15:00 Test Item Value Reference Range Interpretation Comments Bili Total (test code = Bili Total) 1.0 0.2-1.3 [facility]2016-06-28 05:15:00 Test Item Value Reference Range Interpretation Comments Total Protein (test code = Total 7.9 6.4-8.4 Protein) [facility]2016-06-28 05:15:00 Test Item Value Reference Range Interpretation Comments Glucose Lvl (test code = Glucose Lvl) 143 70-99 [facility]woodPmoopmmBYZAAKLODU1521-10-24 05:15:00 Test Item Value Reference Range Interpretation Comments WBC (test code = WBC) 10.5 3.7-10.4 [facility]2016-06-28 05:15:00 Test Item Value Reference Range Interpretation Comments BUN (test code = BUN) 9 7-22 [facility]2016-06-28 05:15:00 Test Item Value Reference Range Interpretation Comments CO2 (test code = CO2) 28 24-32 [facility]2016-06-28 05:15:00 Test Item Value Reference Range Interpretation Comments Calcium Lvl (test code = Calcium Lvl) 8.3 8.5-10.5 [facility]2016-06-28 05:15:00 Test Item Value Reference Range Interpretation Comments Creatinine Lvl (test code = Creatinine 0.71 0.50-1.40 Lvl) [facility]2016-06-28 05:15:00 Test Item Value Reference Range Interpretation Comments Sodium Lvl (test code = Sodium Lvl) 133 135-145 [facility]2016-06-28 05:15:00 Test Item Value Reference Range Interpretation Comments Potassium Lvl (test code = Potassium 5.1 3.5-5.1 Lvl) [facility]2016-06-28 05:15:00 Test Item Value Reference Range Interpretation Comments Chloride Lvl (test code = Chloride Lvl) 100 95-109 [facility]2016-06-28 05:15:00 Test Item Value Reference Range Interpretation Comments eGFR (test code = eGFR) 89 [facility]2016-06-28 05:15:00 Test Item Value Reference Range Interpretation Comments AGAP (test code = AGAP) 10.1 10.0-20.0 [facility]woodWkrlnejJEHILBXMKO3731-37-24 05:15:00 Test Item Value Reference Range Interpretation Comments Basophils (test code = 0.2 See_Comment [Aut omated message] The Basophils) system which ge nerated this result tra nsmitted reference range : <=1.0. The reference r adamaris was not used to int erpret this result as normal/abnormal . [facility]woodBqgiuhxJQAOHCKWNW2126-59-00 05:15:00 Test Item Value Reference Range Interpretation Comments RBC (test code = RBC) 4.97 4.20-5.40 [id number] 05:15:00 Test Item Value Reference Range Interpretation Comments Eosinophils (test code = 0.1 See_Comment [A utomated message] The Eosinophils) system which ge nerated this result tra nsmitted reference range : <=4.0. The reference r adamaris was not used to int erpret this result as normal/abnormal . [facility]woodZshnkfmIUNBGJZMVD0297-97-90 05:15:00 Test Item Value Reference Range Interpretation Comments Segs-Bands # (test code = Segs-Bands #) 8.3 1.5-8.1 [facility]woodKqihfmfIAIKRBYGMO5744-40-08 05:15:00 Test Item Value Reference Range Interpretation Comments Lymphocytes # (test code = Lymphocytes 1.2 1.0-5.5 #) [facility]woodZbzexkqFWLJLMMWKY8090-92-06 05:15:00 Test Item Value Reference Range Interpretation Comments Monocytes # (test code 1.0 See_Comment [Aut omated message] The = Monocytes #) system which generated this result tra nsmitted reference range : <=0.8. The reference r adamaris was not used to int erpret this result as normal/abnormal . [facility]woodViohqorAZARGOVAHA6799-27-21 05:15:00 Test Item Value Reference Range Interpretation Comments Monocytes (test code = Monocytes) 9.7 2.0-12.0 [facility]woodUkfukvmCBZVSLNJGE5368-11-90 05:15:00 Test Item Value Reference Range Interpretation Comments Lymphocytes (test code = Lymphocytes) 11.1 20.0-40.0 [facility]woodQehguimYVDQEVSCMS0090-65-91 05:15:00 Test Item Value Reference Range Interpretation Comments Segs (test code = Segs) 78.9 45.0-75.0 [facility]woodHrhwciuPSAYPBFBRF9341-20-85 05:15:00 Test Item Value Reference Range Interpretation Comments MPV (test code = MPV) 9.7 7.4-10.4 [facility]woodPzphgzaFHXPHCGTUO7951-40-82 05:15:00 Test Item Value Reference Range Interpretation Comments MCV (test code = MCV) 83.4 80.0-98.0 [facility]woodAnwttjrVOKTYQESBI9963-16-79 05:15:00 Test Item Value Reference Range Interpretation Comments RDW (test code = RDW) 13.3 11.5-14.5 [facility]woodHbbbskeIRXKVDSLTX5587-01-67 05:15:00 Test Item Value Reference Range Interpretation Comments Hgb (test code = Hgb) 13.9 12.0-16.0 [facility]woodMfkuwzvSNZXYCONNP2983-90-06 05:15:00 Test Item Value Reference Range Interpretation Comments MCHC (test code = MCHC) 33.6 32.0-36.0 [facility]woodLnytrkkTHHMMNUTTW8623-75-40 05:15:00 Test Item Value Reference Range Interpretation Comments MCH (test code = MCH) 28.0 pg 27.0-31.0 [facility]woodMfchjtqKZVCEEZYIR6194-77-18 05:15:00 Test Item Value Reference Range Interpretation Comments Platelet (test code = Platelet) 262 133-450 [facility]woodQrdllxoDREZILGNXE2240-25-50 05:15:00 Test Item Value Reference Range Interpretation Comments WBC (test code = WBC) 10.5 3.7-10.4 [id number] 05:15:00 Test Item Value Reference Range Interpretation Comments RBC (test code = RBC) 4.97 4.20-5.40 [id number] 05:15:00 Test Item Value Reference Range Interpretation Comments Hgb (test code = Hgb) 13.9 12.0-16.0 [facility]woodQwuxlaxQSHZUVWEZK3654-82-68 05:15:00 Test Item Value Reference Range Interpretation Comments Hct (test code = Hct) 41.4 36.0-48.0 [facility]woodBemjfddTPPORRAUIN5821-94-78 05:15:00 Test Item Value Reference Range Interpretation Comments Hct (test code = Hct) 41.4 36.0-48.0 [facility] AND [id number] 02:00:00 Test Item Value Reference Range Interpretation Comments UA Urobilinogen (test code = UA 4.0 0.1-1.0 Urobilinogen) [facility] AND [id number] 02:00:00 Test Item Value Reference Range Interpretation Comments UA Nitrite (test code Positive *ABN*(03/20/16 = UA Nitrite) 9:00 PM) [facility] [id number] 02:00:00 Test Item Value Reference Range Interpretation Comments UA Bili (test code = Small *ABN*(03/20/16 UA Bili) 9:00 PM) [facility] AND [id number] 02:00:00 Test Item Value Reference Range Interpretation Comments UA Blood (test code = Trace *ABN*(03/20/16 UA Blood) 9:00 PM) [facility] AND [id number] 02:00:00 Test Item Value Reference Range Interpretation Comments UA Leuk Est (test code Trace *ABN*(03/20/16 = UA Leuk Est) 9:00 PM) [facility] [id number] 02:00:00 Test Item Value Reference Range Interpretation Comments UA Glucose (test code Negative (03/20/16 9:00 = UA Glucose) PM) [facility] AND [id number] 02:00:00 Test Item Value Reference Range Interpretation Comments UA pH (test code = UA pH) 6.0 1 5.0-8.0 [facility] AND [id number] 02:00:00 Test Item Value Reference Range Interpretation Comments UA Protein (test code = Trace *ABN*(03/20/16 UA Protein) 9:00 PM) [facility] AND [id number] 02:00:00 Test Item Value Reference Range Interpretation Comments UA Ketones (test code Negative *NA*(03/20/16 = UA Ketones) 9:00 PM) [facility] AND [id number] 02:00:00 Test Item Value Reference Range Interpretation Comments UA Spec Grav (test code = UA Spec 1.025 1 Grav) [facility] AND [id number] 02:00:00 Test Item Value Reference Range Interpretation Comments UA Turbidity (test code Slight Cloudy = UA Turbidity) (03/20/16 9:00 PM) [facility] AND [id number] 02:00:00 Test Item Value Reference Range Interpretation Comments UA WBC (test code = UA WBC) 3-5 /HPF [facility] AND [id number] 02:00:00 Test Item Value Reference Range Interpretation Comments UA Sq Epi (test code = UA Sq Epi) Rare /LPF [facility] [id number] 02:00:00 Test Item Value Reference Range Interpretation Comments UA Mucus (test code = UA Mucus) Few /LPF [facility] [id number] 02:00:00 Test Item Value Reference Range Interpretation Comments UA Bacteria (test code = UA Occasional /HPF Bacteria) [facility] [id number] 02:00:00 Test Item Value Reference Range Interpretation Comments UA RBC (test None Seen See_Comment [Automated mes micaela] code = UA RBC) (03/20/16 9:00 The system w hich PM) generated this result transmitted ref erence range: <=2. The reference range was not used to int erpret this result as normal/abnormal . [facility] AND [id number] 02:00:00 Test Item Value Reference Range Interpretation Comments UA Color (test code = Marge *ABN*(03/20/16 UA Color) 9:00 PM) [facility] AND [id number] 02:00:00 Test Item Value Reference Range Interpretation Comments UA Urobilinogen (test code = UA 4.0 0.1-1.0 Urobilinogen) [facility] AND [id number] 02:00:00 Test Item Value Reference Range Interpretation Comments UA Nitrite (test code Positive *ABN*(03/20/16 = UA Nitrite) 9:00 PM) [facility] AND [id number] 02:00:00 Test Item Value Reference Range Interpretation Comments UA Bili (test code = Small *ABN*(03/20/16 UA Bili) 9:00 PM) [facility] AND [id number] 02:00:00 Test Item Value Reference Range Interpretation Comments UA Blood (test code = Trace *ABN*(03/20/16 UA Blood) 9:00 PM) [facility] AND [id number] 02:00:00 Test Item Value Reference Range Interpretation Comments UA Leuk Est (test code Trace *ABN*(03/20/16 = UA Leuk Est) 9:00 PM) [facility] AND [id number] 02:00:00 Test Item Value Reference Range Interpretation Comments UA Glucose (test code Negative (03/20/16 9:00 = UA Glucose) PM) [facility] AND [id number] 02:00:00 Test Item Value Reference Range Interpretation Comments UA pH (test code = UA pH) 6.0 1 5.0-8.0 [facility] AND [id number] 02:00:00 Test Item Value Reference Range Interpretation Comments UA Protein (test code = Trace *ABN*(03/20/16 UA Protein) 9:00 PM) [facility] AND [id number] 02:00:00 Test Item Value Reference Range Interpretation Comments UA Ketones (test code Negative *NA*(03/20/16 = UA Ketones) 9:00 PM) [facility] AND [id number] 02:00:00 Test Item Value Reference Range Interpretation Comments UA Spec Grav (test code = UA Spec 1.025 1 Grav) [facility] AND [id number] 02:00:00 Test Item Value Reference Range Interpretation Comments UA Turbidity (test code Slight Cloudy = UA Turbidity) (03/20/16 9:00 PM) [facility] AND [id number] 02:00:00 Test Item Value Reference Range Interpretation Comments UA WBC (test code = UA WBC) 3-5 /HPF [facility] AND [id number] 02:00:00 Test Item Value Reference Range Interpretation Comments UA Sq Epi (test code = UA Sq Epi) Rare /LPF [facility] AND [id number] 02:00:00 Test Item Value Reference Range Interpretation Comments UA Mucus (test code = UA Mucus) Few /LPF [facility] AND [id number] 02:00:00 Test Item Value Reference Range Interpretation Comments UA Bacteria (test code = UA Occasional /HPF Bacteria) [facility] AND [id number] 02:00:00 Test Item Value Reference Range Interpretation Comments UA RBC (test None Seen See_Comment [Automated mes micaela] code = UA RBC) (03/20/16 9:00 The system w hich PM) generated this result transmitted ref erence range: <=2. The reference range was not used to int erpret this result as normal/abnormal . [facility] AND [id number] 02:00:00 Test Item Value Reference Range Interpretation Comments UA Color (test code = Marge *ABN*(03/20/16 UA Color) 9:00 PM) [facility] AND [id number] 02:00:00 Test Item Value Reference Range Interpretation Comments UA Urobilinogen (test code = UA 4.0 0.1-1.0 Urobilinogen) [facility] AND [id number] 02:00:00 Test Item Value Reference Range Interpretation Comments UA Nitrite (test code Positive *ABN*(03/20/16 = UA Nitrite) 9:00 PM) [facility] AND [id number] 02:00:00 Test Item Value Reference Range Interpretation Comments UA Bili (test code = Small *ABN*(03/20/16 UA Bili) 9:00 PM) [facility] AND [id number] 02:00:00 Test Item Value Reference Range Interpretation Comments UA Blood (test code = Trace *ABN*(03/20/16 UA Blood) 9:00 PM) [facility] AND [id number] 02:00:00 Test Item Value Reference Range Interpretation Comments UA Leuk Est (test code Trace *ABN*(03/20/16 = UA Leuk Est) 9:00 PM) [facility] AND [id number] 02:00:00 Test Item Value Reference Range Interpretation Comments UA Glucose (test code Negative (03/20/16 9:00 = UA Glucose) PM) [facility] AND [id number] 02:00:00 Test Item Value Reference Range Interpretation Comments UA pH (test code = UA pH) 6.0 1 5.0-8.0 [facility] AND [id number] 02:00:00 Test Item Value Reference Range Interpretation Comments UA Protein (test code = Trace *ABN*(03/20/16 UA Protein) 9:00 PM) [facility] AND [id number] 02:00:00 Test Item Value Reference Range Interpretation Comments UA Ketones (test code Negative *NA*(03/20/16 = UA Ketones) 9:00 PM) [facility] AND [id number] 02:00:00 Test Item Value Reference Range Interpretation Comments UA Spec Grav (test code = UA Spec 1.025 1 Grav) [facility] AND [id number] 02:00:00 Test Item Value Reference Range Interpretation Comments UA Turbidity (test code Slight Cloudy = UA Turbidity) (03/20/16 9:00 PM) [facility] AND [id number] 02:00:00 Test Item Value Reference Range Interpretation Comments UA WBC (test code = UA WBC) 3-5 /HPF [facility] AND [id number] 02:00:00 Test Item Value Reference Range Interpretation Comments UA Sq Epi (test code = UA Sq Epi) Rare /LPF [facility] AND [id number] 02:00:00 Test Item Value Reference Range Interpretation Comments UA Mucus (test code = UA Mucus) Few /LPF [facility] AND [id number] 02:00:00 Test Item Value Reference Range Interpretation Comments UA Bacteria (test code = UA Occasional /HPF Bacteria) [facility] AND [id number] 02:00:00 Test Item Value Reference Range Interpretation Comments UA RBC (test None Seen See_Comment [Automated mes micaela] code = UA RBC) (03/20/16 9:00 The system w hich PM) generated this result transmitted ref erence range: <=2. The reference range was not used to int erpret this result as normal/abnormal . [facility] AND [id number] 02:00:00 Test Item Value Reference Range Interpretation Comments UA Color (test code = Marge *ABN*(03/20/16 UA Color) 9:00 PM) [facility] AND [id number] 02:00:00 Test Item Value Reference Range Interpretation Comments UA Urobilinogen (test code = UA 4.0 0.1-1.0 Urobilinogen) [facility] AND [id number] 02:00:00 Test Item Value Reference Range Interpretation Comments UA Nitrite (test code Positive *ABN*(03/20/16 = UA Nitrite) 9:00 PM) [facility] AND [id number] 02:00:00 Test Item Value Reference Range Interpretation Comments UA Bili (test code = Small *ABN*(03/20/16 UA Bili) 9:00 PM) [facility] AND [id number] 02:00:00 Test Item Value Reference Range Interpretation Comments UA Blood (test code = Trace *ABN*(03/20/16 UA Blood) 9:00 PM) [facility] AND [id number] 02:00:00 Test Item Value Reference Range Interpretation Comments UA Leuk Est (test code Trace *ABN*(03/20/16 = UA Leuk Est) 9:00 PM) [facility] AND [id number] 02:00:00 Test Item Value Reference Range Interpretation Comments UA Glucose (test code Negative (03/20/16 9:00 = UA Glucose) PM) [facility] AND [id number] 02:00:00 Test Item Value Reference Range Interpretation Comments UA pH (test code = UA pH) 6.0 1 5.0-8.0 [facility] AND [id number] 02:00:00 Test Item Value Reference Range Interpretation Comments UA Protein (test code = Trace *ABN*(03/20/16 UA Protein) 9:00 PM) [facility] AND [id number] 02:00:00 Test Item Value Reference Range Interpretation Comments UA Ketones (test code Negative *NA*(03/20/16 = UA Ketones) 9:00 PM) [facility] AND [id number] 02:00:00 Test Item Value Reference Range Interpretation Comments UA Spec Grav (test code = UA Spec 1.025 1 Grav) [facility] AND [id number] 02:00:00 Test Item Value Reference Range Interpretation Comments UA Turbidity (test code Slight Cloudy = UA Turbidity) (03/20/16 9:00 PM) [facility] AND [id number] 02:00:00 Test Item Value Reference Range Interpretation Comments UA WBC (test code = UA WBC) 3-5 /HPF [facility] AND [id number] 02:00:00 Test Item Value Reference Range Interpretation Comments UA Sq Epi (test code = UA Sq Epi) Rare /LPF [facility] AND [id number] 02:00:00 Test Item Value Reference Range Interpretation Comments UA Mucus (test code = UA Mucus) Few /LPF [facility] AND [id number] 02:00:00 Test Item Value Reference Range Interpretation Comments UA Bacteria (test code = UA Occasional /HPF Bacteria) [facility] AND [id number] 02:00:00 Test Item Value Reference Range Interpretation Comments UA RBC (test None Seen See_Comment [Automated mes micaela] code = UA RBC) (03/20/16 9:00 [facility]) generated this result transmitted ref erence range: <=2. The reference range was not used to int erpret this result as normal/abnormal . [facility] AND [id number] 02:00:00 Test Item Value Reference Range Interpretation Comments UA Color (test code = Marge *ABN*(03/20/16 UA Color) 9:00 PM) [facility] AND [id number] 02:00:00 Test Item Value Reference Range Interpretation Comments UA Urobilinogen (test code = UA 4.0 0.1-1.0 Urobilinogen) [facility] AND [id number] 02:00:00 Test Item Value Reference Range Interpretation Comments UA Nitrite (test code Positive *ABN*(03/20/16 = UA Nitrite) 9:00 PM) [facility] AND [id number] 02:00:00 Test Item Value Reference Range Interpretation Comments UA Bili (test code = Small *ABN*(03/20/16 UA Bili) 9:00 PM) [facility] AND [id number] 02:00:00 Test Item Value Reference Range Interpretation Comments UA Blood (test code = Trace *ABN*(03/20/16 UA Blood) 9:00 PM) [facility] AND [id number] 02:00:00 Test Item Value Reference Range Interpretation Comments UA Leuk Est (test code Trace *ABN*(03/20/16 = UA Leuk Est) 9:00 PM) [facility] AND [id number] 02:00:00 Test Item Value Reference Range Interpretation Comments UA Glucose (test code Negative (03/20/16 9:00 = UA Glucose) PM) [facility] AND [id number] 02:00:00 Test Item Value Reference Range Interpretation Comments UA pH (test code = UA pH) 6.0 1 5.0-8.0 [facility] AND [id number] 02:00:00 Test Item Value Reference Range Interpretation Comments UA Protein (test code = Trace *ABN*(03/20/16 UA Protein) 9:00 PM) [facility] AND [id number] 02:00:00 Test Item Value Reference Range Interpretation Comments UA Ketones (test code Negative *NA*(03/20/16 = UA Ketones) 9:00 PM) [facility] AND [id number] 02:00:00 Test Item Value Reference Range Interpretation Comments UA Spec Grav (test code = UA Spec 1.025 1 Grav) [facility] AND [id number] 02:00:00 Test Item Value Reference Range Interpretation Comments UA Turbidity (test code Slight Cloudy = UA Turbidity) (03/20/16 9:00 PM) [facility] AND [id number] 02:00:00 Test Item Value Reference Range Interpretation Comments UA WBC (test code = UA WBC) 3-5 /HPF [facility] AND [id number] 02:00:00 Test Item Value Reference Range Interpretation Comments UA Sq Epi (test code = UA Sq Epi) Rare /LPF [facility] AND [id number] 02:00:00 Test Item Value Reference Range Interpretation Comments UA Mucus (test code = UA Mucus) Few /LPF [facility] AND [id number] 02:00:00 Test Item Value Reference Range Interpretation Comments UA Bacteria (test code = UA Occasional /HPF Bacteria) [facility] AND [id number] 02:00:00 Test Item Value Reference Range Interpretation Comments UA RBC (test None Seen See_Comment [Automated mes micaela] code = UA RBC) (03/20/16 9:00 The system w hich PM) generated this result transmitted ref erence range: <=2. The reference range was not used to int erpret this result as normal/abnormal . [facility] AND [id number] 02:00:00 Test Item Value Reference Range Interpretation Comments UA Color (test code = Marge *ABN*(03/20/16 UA Color) 9:00 PM) [facility] AND [id number] 02:00:00 Test Item Value Reference Range Interpretation Comments UA Urobilinogen (test code = UA 4.0 0.1-1.0 Urobilinogen) [facility] AND [id number] 02:00:00 Test Item Value Reference Range Interpretation Comments UA Nitrite (test code Positive *ABN*(03/20/16 = UA Nitrite) 9:00 PM) [facility] AND [id number] 02:00:00 Test Item Value Reference Range Interpretation Comments UA Bili (test code = Small *ABN*(03/20/16 UA Bili) 9:00 PM) [facility] AND [id number] 02:00:00 Test Item Value Reference Range Interpretation Comments UA Blood (test code = Trace *ABN*(03/20/16 UA Blood) 9:00 PM) [facility] AND [id number] 02:00:00 Test Item Value Reference Range Interpretation Comments UA Leuk Est (test code Trace *ABN*(03/20/16 = UA Leuk Est) 9:00 PM) [facility] AND [id number] 02:00:00 Test Item Value Reference Range Interpretation Comments UA Glucose (test code Negative (03/20/16 9:00 = UA Glucose) PM) [facility] AND [id number] 02:00:00 Test Item Value Reference Range Interpretation Comments UA pH (test code = UA pH) 6.0 1 5.0-8.0 [facility] AND [id number] 02:00:00 Test Item Value Reference Range Interpretation Comments UA Protein (test code = Trace *ABN*(03/20/16 UA Protein) 9:00 PM) [facility] AND [id number] 02:00:00 Test Item Value Reference Range Interpretation Comments UA Ketones (test code Negative *NA*(03/20/16 = UA Ketones) 9:00 PM) [facility] AND [id number] 02:00:00 Test Item Value Reference Range Interpretation Comments UA Spec Grav (test code = UA Spec 1.025 1 Grav) [facility] AND [id number] 02:00:00 Test Item Value Reference Range Interpretation Comments UA Turbidity (test code Slight Cloudy = UA Turbidity) (03/20/16 9:00 PM) [facility] AND [id number] 02:00:00 Test Item Value Reference Range Interpretation Comments UA WBC (test code = UA WBC) 3-5 /HPF [facility] AND [id number] 02:00:00 Test Item Value Reference Range Interpretation Comments UA Color (test code = Marge *ABN*(03/20/16 UA Color) 9:00 PM) [facility] AND [id number] 02:00:00 Test Item Value Reference Range Interpretation Comments UA Sq Epi (test code = UA Sq Epi) Rare /LPF [facility] AND [id number] 02:00:00 Test Item Value Reference Range Interpretation Comments UA Mucus (test code = UA Mucus) Few /LPF [facility] AND [id number] 02:00:00 Test Item Value Reference Range Interpretation Comments UA Bacteria (test code = UA Occasional /HPF Bacteria) [facility] AND [id number] 02:00:00 Test Item Value Reference Range Interpretation Comments UA RBC (test None Seen See_Comment [Automated mes micaela] code = UA RBC) (03/20/16 9:00 The system w [facility] PM) generated this result transmitted ref erence range: <=2. The reference range was not used to int erpret this result as normal/abnormal . [facility]"
[2023-02-21] MEDS ORDERED: ONDANSETRON 4 MG/2 ML VIAL ONE (21:17)
[2023-02-21] MEDS ORDERED: NA CHLORIDE 0.9% 1,000 ML ONE (21:28)
[2023-02-21] MEDS ORDERED: LORazepam 2 MG/ML VIAL ONE (21:28)
[2023-02-21 21:41] LABS: Protime INR 0.93
[2023-02-21 21:44] LABS: Absolute Lymphocytes (CBC) 1.9 K/uL (0.7-4.9); Hematocrit 38.3 % (36.0-45.0); Lymphocytes % 24.6 % (15.3-44.8); MPV 9.5 fL (7.6-11.3); RBC Red Blood Cell Count 4.56 M/uL (3.86-4.86)
--- NOTE | 2023-02-21 22:18 | RAD REPORT ---
EXAM DESCRIPTION: CT - Head Brain Wo Cont - 02/21/2023 10:03 pm CLINICAL HISTORY: DIZZINESS COMPARISON: HEAD BRAIN W O CONTRAST dated 11/01/2015 TECHNIQUE: Noncontrast head CT images ad were obtained without IV contrast. Multiplanar reformats we re generated and reviewed. All CT scans are performed using dose optimization technique as appropriate and may include automated exposure control or mA/KV adjustment according to patient size. FINDINGS: No intracranial hemorrhage, mass, or edema. Midline structures are unremarkable. Normal ventricular caliber for age. Mishra-white matter differentiation is preserved, without evidence of acute infarct. No abnormal extra- axial fluid collections. Mastoid air cells and visualized portions of the paranasal sinuses are clear. No acute bony findings. IMPRESSION: No evidence of an acute intracranial process.
--- NOTE | 2023-02-21 22:22 | RAD REPORT ---
EXAM DESCRIPTION: Vjt Single View02/21/2023 10:03 pm CLINICAL HISTORY: CHEST PAIN COMPARISON: CHEST SINGLE VIEW dated 03/31/2012 TECHNIQUE: Portable AP view of the chest. FINDINGS: The lungs are clear. No pneumothorax or effusion. The cardiomediastinal contours are unre markable. IMPRESSION: No acute cardiopulmonary process.
[2023-02-21 22:40] LABS: ALT/SGPT 28 U/L (13-56); Albumin 3.4 g/dL (3.4-5.0); Alkaline Phosphatase 95 U/L (45-117); BUN Blood Urea Nitrogen 10 mg/dL (7-18); Bicarbonate 29 mEq/L (21-32); Bilirubin Total 0.2 mg/dL (0.2-1.0); Glomerular Filtration Rate 74 ml/min (=/>90); Glucose Level 187 mg/dL (74-106); NT PRO-BNP 64 pg/mL (<125); Protein, Total 7.5 g/dL (6.4-8.2); Sodium Level 133 mEq/L (136-145); Troponin High Sensitivity 11.6 pg/mL (<58.9)
[2023-02-21 22:47] LABS: AST/SGOT 22 U/L (15-37); Bilirubin Direct < 0.1 mg/dL (0-0.2); Bilirubin Indirect, Calculated ND mg/dL (0.2-0.8); Magnesium 1.9 mg/dL (1.6-2.4); Potassium 3.5 mEq/L (3.5-5.1)
--- NOTE | 2023-02-21 23:40 | ER ---
Nurse's Notes [facility] Name: Raissa Sharp Age: 72 yrs Sex: Female : 1950 Arrival Date: 02/21/2023 Time: 21:06 Bed 6 Private MD: Diagnosis: Other specified anxiety disorders;Acute anxiety attack, acute dizziness, generalized weakness, hyperglycemia Presentation: 02/21 21:12 Chief complaint: EMS states: family reports that pt was outside doing yard work all day aa9 and she came in side reports feeling dizzy and weak. c/o weakness and difficulty breathing. Initial Sepsis Screen: Does the patient meet any 2 criteria? No. Patient's initial sepsis screen is negative. Does the patient have a suspected source of infection? No. Patient's initial sepsis screen is negative. Risk Assessment: Do you want to hurt yourself or someone else? Patient reports no desire to harm self or others. Onset of symptoms was February 21, 2023. Care prior to arrival: Medication(s) given: 200 ml LR IV initiated. 22 GA, in the left wrist, Glucose check: 216. Activity prior to arrival: confused. 21:12 Method Of Arrival: EMS: [facility] aa9 21:12 Acuity: NICOLAS 3 aa9 23:56 Coronavirus screen: Vaccine status: Patient reports receiving the 1st dose of the Covid aa9 vaccine. 23:56 Ebola Screen: No symptoms or risks identified at this time. aa9 Triage Assessment: 21:14 General: Appears comfortable, ill, Behavior is cooperative, drowsy. Pain: Denies pain. aa9 Neuro: Level of Consciousness is obeys commands, Weakness. Cardiovascular: Patient's skin is warm and dry. Respiratory: Airway is patent Respiratory effort is even, unlabored. GI: Pt is actively vomiting undigested food. : No signs and/or symptoms were reported regarding the genitourinary system. Historical: - Allergies: 21:16 No Known Allergies; aa9 - PMHx: 21:16 Dementia; aa9 - Immunization history:: Client reports receiving the 1st dose of the Covid vaccine, Client reports receiving the Rafy \T\ Rafy single-dose vaccine. - Social history:: Patient/guardian denies using alcohol, street drugs, IV drugs, caffeine, over the counter diet medications, tobacco products, Smoking status: Patient denies any tobacco usage or history of. - Family history:: not pertinent. Screenin:55 [facility] ED Fall Risk Assessment (Adult) History of falling in the last 3 months, aa9 including since admission No falls in past 3 months (0 pts) Confusion or Disorientation No (0 pts) Intoxicated or Sedated No (0 pts) Impaired Gait Yes (1 pt) Mobility Assist Device Used Yes (1 pt) Altered Elimination No (0 pt) Score/Fall Risk Level 0 - 2 = Low Risk Oriented to surroundings, Maintained a safe environment, Educated pt \T\ family on fall prevention, incl call for assistance when getting out of bed. Abuse screen: Denies threats or abuse. Denies injuries from another. Nutritional screening: No deficits noted. Tuberculosis screening: No symptoms or risk factors identified. Assessment: 23:56 Reassessment: Patient appears in no apparent distress at this time. Patient and/or aa9 family updated on plan of care and expected duration. Pain level reassessed. Patient is alert, oriented x 3, equal unlabored respirations, skin warm/dry/pink. Patient denies pain at this time. Patient states feeling better. Vital Signs: 21:12 BP 175 / 89; Pulse 115; Resp 19 S; Pulse Ox 98% on R/A; aa9 22:00 BP 148 / 72; Pulse 106; Resp 17; Pulse Ox 96% on R/A; aa9 NIH Stroke Scale Scores: 21:14 NIHSS Score: 1 sp4 ED Course: 21:08 Patient arrived in ED. aa9 21:09 Daryl Huang MD is Attending Physician. sp4 21:09 Gabriela Resendez, RN is Primary Nurse. aa9 21:14 Triage completed. aa9 21:15 Patient has correct armband on for positive identification. Bed in low position. Side aa9 rails up X2. Pulse ox on. NIBP on. 21:18 XRAY Chest (1 view) Sent. rv 21:26 Troponin HS Sent. aa9 21:26 PT-INR Sent. aa9 21:26 NT PRO-BNP Sent. aa9 21:26 Magnesium Sent. aa9 21:26 Basic Metabolic Panel Sent. aa9 21:26 CBC with Diff Sent. aa9 21:26 LFT's Sent. aa9 22:05 XRAY Chest (1 view) In Process Unspecified. EDMS 22:05 CT Head Brain wo Cont In Process Unspecified. EDMS 22:20 Warm blanket given. aa9 23:51 No provider procedures requiring assistance completed. IV discontinued, intact, aa9 bleeding controlled, No redness/swelling at site. Pressure dressing applied. Administered Medications: 21:16 Drug: Ondansetron IVP 4 mg Route: IVP; Site: left wrist; aa9 21:16 Drug: Ondansetron IVP 4 mg Route: IVP; Site: left wrist; aa9 21:25 Drug: Ativan IVP 0.5 mg Route: IVP; Site: left wrist; aa9 21:25 Drug: NS 0.9% IV 1000 ml Route: IV; Rate: 125 ml/hr; Site: left wrist; aa9 Medication: 23:56 VIS not applicable for this client. aa9 Outcome: 23:39 Discharge ordered by . sp4 23:55 Discharged to home via wheelchair. aa9 23:55 Condition: stable 23:55 Discharge instructions given to patient, family, Instructed on discharge instructions, follow up and referral plans. Demonstrated understanding of instructions, follow-up care, medications, Prescriptions given X 1. 23:56 Patient left the ED. aa9 NIH Stroke Scale - NIH Stroke Score Date: 02/21/2023 Time: 21:14 Total Score = 1 10. Dysarthria (speech clarity - read or repeat words) - 0(Normal) 11. Extinction and Inattention (visual/tactile/auditory/spatial/personal) - 0(No abnormality) 1a. Level of Consciousness (LOC) - 0(Alert) 1b. Level of Consciousness (LOC) (Month \T\ Age) - 1(One) 1c. LOC Commands (Open \T\ Closes Eyes/Radiation Technician) - 0(Both) 2. Best Gaze (Lateral Gaze Paresis) - 0(Normal) 3. Visual Field Loss - 0(No visual loss) 4. Facial Palsy - 0(Normal) 5a. Left Arm: Motor (10-second hold) - 0(No drift) 5b. Right Arm: Motor (10-second hold) - 0(No drift) 6a. Left Leg: Motor (5-second hold - always test supine) - 0(No drift) 6b. Right Leg: Motor (5-second hold - always test supine) - 0(No drift) 7. Limb Ataxia (finger/nose \T\ heel/pastor - test with eyes open) - 0(Absent) 8. Sensory Loss (pinprick arms/legs/face) - 0(Normal) 9. Best Language: Aphasia (description/naming/reading) - 0(No aphasia) Initials: sp4 Signatures: Dispatcher [employer] Abel Clinton RN RN rv Gabriela Resendez RN RN aa9 Daryl Huang MD MD sp4 Corrections: (The following items were deleted from the chart) 21:16 21:12 PMHx: Hypertension; sp4 aa9
--- NOTE | 2023-02-21 23:40 | EDPHYS ---
Physician Documentation [facility] Name: Raissa Sharp Age: 72 yrs Sex: Female : 1950 Arrival Date: 02/21/2023 Time: 21:06 Bed 6 Private MD: ED Physician Daryl Huang HPI: 02/21 21:10 This 72 yrs old Female presents to ER via Unassigned with complaints of sp4 vomiting, dizziness, decreased responsiveness. 21:10 72-year-old female past medical history hypertension presents with EMS after she became sp4 less responsive at home. Patient has history of dementia as well. She was outside in the yard pulling weeds all day, at home patient began feeling unwell and became nonverbal.. EMS reports patient was able to stand up and was able to respond with head nods. On arrival patient states her name is Raissa. She was able to stand up with assistance. Patient vomited profusely on arrival.. . Patient presented with no signs of lateralizing deficits. Historical: - Allergies: 21:16 No Known Allergies; aa9 - PMHx: 21:16 Dementia; aa9 - Immunization history:: Client reports receiving the 1st dose of the Covid vaccine, Client reports receiving the Rafy \T\ Rafy single-dose vaccine. - Social history:: Patient/guardian denies using alcohol, street drugs, IV drugs, caffeine, over the counter diet medications, tobacco products, Smoking status: Patient denies any tobacco usage or history of. - Family history:: not pertinent. ROS: 21:12 Constitutional: Negative for fever, chills, and weight loss, positive for less sp4 responsiveness. Eyes: Negative for injury, pain, redness, and discharge, ENT: Negative for injury, pain, and discharge. 21:12 All other systems are negative. 21:12 Unable to obtain ROS due to patient being uncooperative. Exam: 21:12 Constitutional: This is a well developed, well nourished patient who is awake, alert, sp4 patient reports her name is Raissa otherwise does not communicate Head/Face: Normocephalic, atraumatic. Eyes: Pupils equal round and reactive to light, extra-ocular motions intact. Lids and lashes normal. Conjunctiva and sclera are not injected. Cornea within normal limits. Periorbital areas with no swelling, redness, or edema. ENT: Nares patent. No nasal discharge, no septal abnormalities noted. Tympanic membranes are normal and external auditory canals are clear. Oropharynx with no redness, swelling, or masses, exudates, or evidence of obstruction, uvula midline. Mucous membranes moist. Neck: Trachea midline, no thyromegaly or masses palpated, and no cervical lymphadenopathy. Supple, full range of motion without nuchal rigidity, or vertebral point tenderness. No Meningismus. Chest/axilla: Normal chest wall appearance and motion. Nontender with no deformity. No lesions are appreciated. Cardiovascular: Regular rate and rhythm with a normal S1 and S2. No gallops, murmurs, or rubs. Normal PMI, no JVD. No pulse deficits. Respiratory: Lungs have equal breath sounds bilaterally, clear to auscultation and percussion. No rales, rhonchi or wheezes noted. No increased work of breathing, no retractions or nasal flaring. Abdomen/GI: Soft, non-tender, with normal bowel sounds. No distension or tympany. No guarding or rebound. No evidence of tenderness throughout. Back: No spinal tenderness. No costovertebral tenderness. Skin: Warm, dry with normal turgor. Normal color with no rashes, no lesions, and no evidence of cellulitis. MS/ Extremity: Pulses equal, no cyanosis. Neurovascular intact. Full, normal range of motion. Neuro: Awake and alert, GCS 15, oriented to person, Cranial nerves II-XII grossly intact. Motor strength 5/5 in all extremities. Sensory grossly intact. 23:25 ECG was reviewed by the Attending Physician. 2123. 02/21/2023. There is sinus sp4 tachycardia at the rate of 105. No ST elevation or depression. Vital Signs: 21:12 BP 175 / 89; Pulse 115; Resp 19 S; Pulse Ox 98% on R/A; aa9 22:00 BP 148 / 72; Pulse 106; Resp 17; Pulse Ox 96% on R/A; aa9 NIH Stroke Scale Scores: 21:14 NIHSS Score: 1 sp4 MDM: 21:10 Patient medically screened. sp4 23:25 Differential Diagnosis altered mental status. Data reviewed: vital signs, nurses notes. sp4 23:37 ED course: CT head is normal today, patient has no sign of CVA today, patient has sp4 improved after lorazepam. Will advise bedrest for the next 12 hours. Patient was able to ambulate with assistance prior to arrival.. ED course: Will advise patient to continue all home medications. . 02/21 21:09 Order name: Basic Metabolic Panel; Complete Time: 23:16 02/21 21:09 Order name: CBC with Diff; Complete Time: 23:16 02/21 21:09 Order name: LFT's; Complete Time: 23:16 02/21 21:09 Order name: Magnesium; Complete Time: 23:16 02/21 21:09 Order name: NT PRO-BNP; Complete Time: 23:16 02/21 21:09 Order name: PT-INR; Complete Time: 23:16 02/21 21:09 Order name: Troponin HS; Complete Time: 23:16 [facility] 02/21 21:09 Order name: XRAY Chest (1 view); Complete Time: 23:16 [facility] 02/21 21:09 Order name: CT Head Brain wo Cont; Complete Time: 23:16 02/21 21:09 Order name: EKG; Complete Time: 21:10 02/21 21:09 Order name: Cardiac monitoring; Complete Time: 21:18 02/21 21:09 Order name: EKG - Nurse/Tech; Complete Time: 21:18 02/21 21:09 Order name: IV Saline Lock; Complete Time: 21:18 02/21 21:09 Order name: Labs collected and sent; Complete Time: 21: 02/21 21:09 Order name: O2 Per Protocol; Complete Time: 21:18 02/21 21:09 Order name: O2 Sat Monitoring; Complete Time: :18 EC:25 Rate is 105 beats/min. Rhythm is regular, Sinus tachycardia. QRS [place] is Normal. [place] sp4 interval is normal. T waves are Normal. No ST changes noted. Clinical impression: Sinus tachycardia. Interpreted by me. Administered Medications: 21:16 Drug: Ondansetron IVP 4 mg Route: IVP; Site: left wrist; aa9 21:16 Drug: Ondansetron IVP 4 mg Route: IVP; Site: left wrist; aa9 21:25 Drug: Ativan IVP 0.5 mg Route: IVP; Site: left wrist; aa9 21:25 Drug: NS 0.9% IV 1000 ml Route: IV; Rate: 125 ml/hr; Site: left wrist; aa9 Disposition Summary: 02/21/23 23:39 Discharge Ordered Location: Home sp4 Problem: new sp4 Symptoms: have improved sp4 Condition: Stable sp4 Diagnosis - Other specified anxiety disorders sp4 - Acute anxiety attack, acute dizziness, generalized weakness, hyperglycemia sp4 Followup: sp4 - With: Private Physician - When: 7 - 10 days - Reason: Recheck today's complaints Discharge Instructions: - Discharge Summary Sheet sp4 - Managing Anxiety, Adult sp4 Prescriptions: - Zofran 4 mg Oral Tablet - take 1 tablet by ORAL route every 12 hours As needed; 20 tablet; Refills: 0, sp4 Product Selection Permitted NIH Stroke Scale - NIH Stroke Score Date: 02/21/2023 Time: 21:14 Total Score = 1 10. Dysarthria (speech clarity - read or repeat words) - 0(Normal) 11. Extinction and Inattention (visual/tactile/auditory/spatial/personal) - 0(No abnormality) 1a. Level of Consciousness (LOC) - 0(Alert) 1b. Level of Consciousness (LOC) (Month \T\ Age) - 1(One) 1c. LOC Commands (Open \T\ Closes Eyes/Wholesale Manager) - 0(Both) 2. Best Gaze (Lateral Gaze Paresis) - 0(Normal) 3. Visual Field Loss - 0(No visual loss) 4. Facial Palsy - 0(Normal) 5a. Left Arm: Motor (10-second hold) - 0(No drift) 5b. Right Arm: Motor (10-second hold) - 0(No drift) 6a. Left Leg: Motor (5-second hold - always test supine) - 0(No drift) 6b. Right Leg: Motor (5-second hold - always test supine) - 0(No drift) 7. Limb Ataxia (finger/nose \T\ heel/pastor - test with eyes open) - 0(Absent) 8. Sensory Loss (pinprick arms/legs/face) - 0(Normal) 9. Best Language: Aphasia (description/naming/reading) - 0(No aphasia) Initials: sp4 Signatures: Dispatcher [employer] EDLatisha Marinolin, RN RN aa9 Daryl Huang MD MD sp4 Corrections: (The following items were deleted from the chart) 21:16 21:12 PMHx: Hypertension; sp4 aa9
[2023-02-22 00:28] VITALS: BP 148/72; O2SAT 96
--- NOTE | 2023-02-22 12:07 | EKG ---
Test Date: 2023-02-21 Test Time: 21:24:35 Catering Server: RV MEASUREMENT RESULTS: Intervals: Rate: 105 FL: 152 QRSD: 88 QT: 356 QTc: 470 [place]: P: 45 FL: 152 QRS: -4 T: 80 INTERPRETIVE STATEMENTS: Sinus tachycardia Nonspecific ST and T wave abnormality Abnormal ECG Compared to ECG 03/31/2012 13:59:09 Sinus rhythm no longer present ST (T wave) deviation still present Electronically Signed On 02-22-23 12:05:56 CDT by Sergio Rahman
== END 2023-02-21 23:56 | disposition home or self-care (01) ==
LOC: ER 21:06
DX: R73.9 Hyperglycemia, unspecified (principal); F41.0 Panic disorder [episodic paroxysmal anxiety]; F41.8 Other specified anxiety disorders; R53.1 Weakness; F03.90 Unspecified dementia, unspecified severity, without behavioral disturbance, psychotic disturbance, mood disturbance, and anxiety
CPT/HCPCS: 93005; 85025; 80048; 36415; 83735; 85610; 80076; 84484; 83880; 70450; 71045; 96375; 96374; 99284; J2405; J7030